=== PATIENT | female | born 1950 | race Caucasian/White ===

== ENCOUNTER 2017-03-17 07:05 | Inpatient (IN) | payer MEDICARE, OTHER ==
[2017-03-17] MEDS ORDERED: Ondansetron HCl/PF 4 MG/2 ML Vial ONE (07:18)
[2017-03-17 07:38] LABS: #Lymphocytes 0.7 thou/uL (1.20-3.40); #Monocytes 0.5 thou/uL (0.11-0.59); %Basophils 0.2 % (0.0-1.0); %Eosinophils 0.1 % (0.0-10.0); %Lymphocytes 5.1 % (21.0-51.0); %Monocytes 3.5 % (0.0-10.0); %Neutrophils 91.1 % (42.0-75.0); Hemoglobin 13.3 g/dL (12.0-16.0); Mean Corpuscular HGB CONC 34.9 g/dL (32.0-36.0); Mean Corpuscular Hemoglobin 33.7 pg (27.0-31.0); Mean Corpuscular Volume 96.5 fl (81.0-99.0); Mean Platelet Volume 7.7 fL (7.4-10.4); Platelet Count 242 thou/uL (130-400); RBC Distribution Width 11.6 % (11.5-14.5); Red Blood Cell (RBC) Count 3.94 mill/uL (4.20-5.40); White Blood Cell (WBC) Count 14.3 thou/uL (4.8-10.8)
[2017-03-17 07:53] LABS: ALT (SGPT) 9 U/L (8-55); AST (SGOT) 15 U/L (5-34); Albumin 4.1 g/dL (3.4-4.8); Alkaline Phosphatase 41 U/L (40-150); Anion Gap 14 mmol/L (10-20); BUN (Urea Nitrogen) 33 mg/dL (9.8-20.1); Bilirubin, Total 0.7 mg/dL (0.2-1.2); CK (CPK) 29 U/L (29-168); Calc. Creatinine Clearance 0 mL/min (70-130); Calcium 9.8 mg/dL (7.8-10.44); Carbon Dioxide 24 mmol/L (23-31); Chloride 107 mmol/L (98-107); Estimated GFR-MDRD 49; Globulin 3.3 g/dL (2.4-3.5); Glucose 242 mg/dL (80-115); Lipase 8 U/L (8-78); Potassium 3.8 mmol/L (3.5-5.1); Protein, Total 7.4 g/dL (6.0-8.3); Sodium 141 mmol/L (136-145)
[2017-03-17 07:57] LABS: CKMB 1.4 ng/mL (0-6.6)
--- NOTE | 2017-03-17 07:57 | RAD ---
RADIOGRAPH CHEST 1 VIEW: Date: 03/17/17. Time: 7:01 a.m. HISTORY: A 66-year-old female with dyspnea. COMPARISON: 10/09/16. FINDINGS: New finding of mild to moderate airspace densities in the right mid and lower lung zones, including t he right upper lobe. Lungs are hypoinflated. No pulmonary edema or pneumothorax. IMPRESSION: Right-sided alveolar infiltrates is evidence for right-sided pneumonia. JN [] POS: OFF
[2017-03-17 08:03] LABS: Bilirubin Small (Negative); Blood, Urine Negative (Negative); Clarity CLOUDY (Clear); Glucose, Urine (Dipstick) 250 mg/dL (Negative); Leukocyte Moderate (Negative); Nitrite Positive (Negative); Protein, Urine (Dipstick) 30 mg/dL (Neg-Trace); Specific Gravity, Urine 1.027 (1.002-1.036); Urobilinogen 0.2 mg/dL (0.2-1.0)
[2017-03-17 08:06] LABS: Bacteria/HPF 4+ HPF (None Seen); Hyaline Casts/LPF 0-3 HYALINE CAST LPF (0-3 Hyaline); Pathc Cast-AUWi Flag 0.13 (0-2.49); RBC/HPF 0-3 HPF (0-3); Squamous Epithelial None Seen HPF (0-3)
[2017-03-17] MEDS ORDERED: Piperacillin/Tazobactam 4.5 GM in Sodium Chloride 0.9% 100 ML IVPB SCH (08:15)
[2017-03-17 10:48] LABS: Troponin I 0.125 ng/mL (< 0.028)
[2017-03-17 13:58] LABS: Troponin I 0.122 ng/mL (< 0.028)
--- NOTE | 2017-03-17 14:32 | HP ---
CHIEF COMPLAINT: Pneumonia. HISTORY OF PRESENT ILLNESS: The patient is a 66[facility], who was noted to be more lethargic with hypoxia, her pO2s were getting into the 80s such that she was sent to the emergency room for further evaluation. In the emergency room, her pO2s were indeed confirmed to be in the 80s. She has some nausea and has had vomiting as well. Vital signs on arrival; pulse 62 , blood pressure 168/92, temperature 98.4, pO2 was 94% on room air at that time. Evaluation showed r ales in the right lobe and chest x-ray obtained in the emergency room did confirm that there was righ t middle lobe infiltrates noted. The patient will be admitted for pneumonia. PAST MEDICAL HISTORY: Significant for dementia, diabetes type 2, hyperlipidemia, hypertension, 2 patel or strokes and about 10 small ones, weakness to the left arm, atrial fibrillation, pancreatitis, recu rrent UTIs. PAST SURGICAL HISTORY: Includes cholecystectomy. She has had stents placed in 2013. Psychiatricall y, she suffers from anxiety and depression and now has dementia. SOCIAL HISTORY: She has never smoked or drank or used alcohol or use illicit drugs. FAMILY HISTORY: Noncontributory. ALLERGIES: LISINOPRIL, NAPROXEN. MEDICATIONS ON ADMISSION: Include Levemir 37 units daily, metformin 500 mg b.i.d. She also takes ox ybutynin 15 mg per bladder spasms, gabapentin 100 mg at bedtime for neuropathy, fenofibrate 145 mg da tonie, Xarelto 20 mg daily, sotalol 120 mg b.i.d., metoprolol 25 mg b.i.d., atorvastatin 40 mg at bedti me, Prozac 20 mg every day, hydralazine 50 mg t.i.d., donepezil 23 mg daily, multiple vitamin daily, and Aggrenox 25/200 b.i.d. REVIEW OF SYSTEMS: At the time of admission is not obtainable due to the patient having dementia. PHYSICAL EXAMINATION: VITAL SIGNS: On admission, blood pressure 168/92, pulse 62, respirations 14, temperature 98.4, O2 sa t 94%. GENERAL: This is a well-developed and well-nourished female, in no acute distress, alert a nd cooperative. HEENT: Normocephalic and atraumatic. Pupils are equal, round, and reactive to light with extraocula r muscles intact. Arcus senilis bilaterally. TMs clear. Nares clear. Pharynx without erythema or lesion. NECK: Supple. CHEST: With rales on the right. Left is clear. BREAST: Deferred. HEART: Regular rate and rhythm. ABDOMEN: Soft and nontender without organomegaly. GENITOURINARY: Deferred. EXTREMITIES: Without clubbing, cyanosis, or edema. SKIN: Without acute rashes or lesions. NEUROLOGIC: Cranial nerves are intact. Unable to test gait and cerebellar function. Sensory exam i s grossly intact. LABORATORY AND X-RAY FINDINGS: Lab work thus far on admission: Chest x-ray reveals right-sided infi ltrate in the mid lower lobe and right middle lobe distribution. WBC is 14.3, hemoglobin 13.3, hemat ocrit 38.1 with platelets at 242. Sodium 141, potassium 3.8, chloride 107, CO2 of 24, BUN 33, creati nine 1.11, glucose 242. Lactic acid 1.4. Liver enzymes unremarkable. UA shows 30 protein, 250 gluc ose, negative ketones, nitrites positive, leukocyte esterase positive, and too numerous to count whit e cells. ASSESSMENT: Right middle lobe and right lower lobe pneumonia, urinary tract infection, non-insulin d ependent diabetes, vascular dementia with history of multiple cerebrovascular accidents. PLAN: IV antibiotics, nebulizer treatments. Cultures have already been obtained and serial reevalua tion.
[2017-03-17 14:39] VITALS: BMI 29.8
[2017-03-17] MEDS ORDERED: Ondansetron ODT 4 MG TAB SL PRN (14:40)
[2017-03-17] MEDS ORDERED: Ondansetron HCl/PF 4 MG/2 ML Vial IVP PRN (14:40)
[2017-03-17] MEDS ORDERED: Acetaminophen 325 MG TAB PO PRN ×2 (14:40→19:36)
[2017-03-17] MEDS ORDERED: Prevnar 13-Val Conj/PF 0.5 ML SYRINGE IM ONE (17:45)
[2017-03-17] MEDS ORDERED: FLU VACC TS2017-18 (>65YR) 0.5 ML SYRINGE IM ONE (17:45)
[2017-03-17] MEDS ORDERED: Ondansetron HCl/PF 4 MG/2 ML Vial SLOW IVP PRN (19:36)
[2017-03-17] MEDS ORDERED: Benzonatate 100 MG CAP PO PRN (19:37)
[2017-03-17] MEDS: Metoprolol Tartrate 25 MG TAB PO SCH (20:12)
[2017-03-17] MEDS: Gabapentin 100 MG CAP PO SCH (20:12)
[2017-03-17] MEDS: Atorvastatin Calcium 40 MG TAB PO SCH (20:13)
[2017-03-17] MEDS: hydrALAZINE 25 MG TAB PO SCH (20:13)
[2017-03-17] MEDS: guaiFENesin ER 600 MG TAB PO SCH (20:13)
[2017-03-17] MEDS: Sotalol HCl 80 MG TAB PO SCH (20:26)
[2017-03-17] MEDS: Piperacillin/Tazobactam 4.5 GM in Sodium Chloride 0.9% 100 ML IVPB SCH (21:26)
[2017-03-18] MEDS: Piperacillin/Tazobactam 4.5 GM in Sodium Chloride 0.9% 100 ML IVPB SCH ×3 (03:45→20:21)
[2017-03-18 05:02] LABS: #Eosinphils 0.2 thou/uL (0.0-0.7); #Lymphocytes 1.3 thou/uL (1.20-3.40); #Monocytes 0.7 thou/uL (0.11-0.59); %Basophils 0.3 % (0.0-1.0); %Lymphocytes 13.8 % (21.0-51.0); %Monocytes 7.1 % (0.0-10.0); %Neutrophils 76.7 % (42.0-75.0); Hemoglobin 11.7 g/dL (12.0-16.0); Mean Corpuscular HGB CONC 33.3 g/dL (32.0-36.0); Mean Corpuscular Hemoglobin 32.8 pg (27.0-31.0); Mean Corpuscular Volume 98.5 fl (81.0-99.0); Platelet Count 205 thou/uL (130-400); RBC Distribution Width 11.8 % (11.5-14.5); Red Blood Cell (RBC) Count 3.56 mill/uL (4.20-5.40); White Blood Cell (WBC) Count 9.1 thou/uL (4.8-10.8)
[2017-03-18 05:23] LABS: Anion Gap 13 mmol/L (10-20); BUN (Urea Nitrogen) 34 mg/dL (9.8-20.1); Calc. Creatinine Clearance 74 mL/min (70-130); Calcium 9.5 mg/dL (7.8-10.44); Carbon Dioxide 26 mmol/L (23-31); Chloride 107 mmol/L (98-107); Estimated GFR-MDRD 56; Glucose 172 mg/dL (80-115); Potassium 3.7 mmol/L (3.5-5.1); Sodium 142 mmol/L (136-145)
[2017-03-18] MEDS: Vancomycin HCl 1.25 GM in Sodium Chloride 0.9% 250 ML 250 ML IVPB SCH (05:34)
[2017-03-18] MEDS ORDERED: metFORMIN 500 MG TAB PO SCH (08:00)
[2017-03-18] MEDS: Rivaroxaban 10 MG TAB PO SCH (08:22)
[2017-03-18] MEDS: guaiFENesin ER 600 MG TAB PO SCH ×2 (08:22→20:22)
[2017-03-18] MEDS: Metoprolol Tartrate 25 MG TAB PO SCH ×2 (08:23→20:21)
[2017-03-18] MEDS: Multivitamin W/ Minerals 1 TAB PO SCH (08:23)
[2017-03-18] MEDS: Aspirin 81 mg Enteric Coated Tablet PO SCH (08:23)
[2017-03-18] MEDS: hydrALAZINE 25 MG TAB PO SCH ×3 (08:23→20:21)
[2017-03-18] MEDS: FLUoxetine HCl 20 MG CAP PO SCH (08:24)
[2017-03-18] MEDS: Sotalol HCl 80 MG TAB PO SCH ×2 (08:47→20:22)
[2017-03-18] MEDS ORDERED: DONEPEZIL 23 MG PO SCH (09:00)
[2017-03-18] MEDS: metFORMIN 500 MG TAB PO SCH (16:29)
[2017-03-18] MEDS: Atorvastatin Calcium 40 MG TAB PO SCH (20:21)
[2017-03-18] MEDS: Gabapentin 100 MG CAP PO SCH (20:22)
[2017-03-19] MEDS: Piperacillin/Tazobactam 4.5 GM in Sodium Chloride 0.9% 100 ML IVPB SCH ×3 (03:32→20:30)
[2017-03-19 05:30] LABS: #Eosinphils 0.1 thou/uL (0.0-0.7); #Lymphocytes 1.4 thou/uL (1.20-3.40); #Monocytes 0.6 thou/uL (0.11-0.59); %Basophils 0.5 % (0.0-1.0); %Eosinophils 1.6 % (0.0-10.0); %Lymphocytes 19.3 % (21.0-51.0); %Monocytes 8.1 % (0.0-10.0); %Neutrophils 70.4 % (42.0-75.0); Hemoglobin 11.3 g/dL (12.0-16.0); Mean Corpuscular Hemoglobin 32.4 pg (27.0-31.0); Mean Corpuscular Volume 98.1 fl (81.0-99.0); Mean Platelet Volume 7.3 fL (7.4-10.4); Platelet Count 180 thou/uL (130-400); RBC Distribution Width 11.6 % (11.5-14.5)
[2017-03-19 05:43] LABS: Vancomycin, Trough 6.5 ug/mL
[2017-03-19 05:45] LABS: Anion Gap 11 mmol/L (10-20); BUN (Urea Nitrogen) 27 mg/dL (9.8-20.1); Calc. Creatinine Clearance 77 mL/min (70-130); Calcium 9.2 mg/dL (7.8-10.44); Carbon Dioxide 27 mmol/L (23-31); Chloride 110 mmol/L (98-107); Estimated GFR-MDRD 58; Glucose 138 mg/dL (80-115); Potassium 3.8 mmol/L (3.5-5.1); Sodium 144 mmol/L (136-145)
[2017-03-19] MEDS: Vancomycin HCl 1.25 GM in Sodium Chloride 0.9% 250 ML 250 ML IVPB SCH (05:51)
[2017-03-19] MEDS: Rivaroxaban 10 MG TAB PO SCH (08:12)
[2017-03-19] MEDS: guaiFENesin ER 600 MG TAB PO SCH ×2 (08:12→20:30)
[2017-03-19] MEDS: Aspirin 81 mg Enteric Coated Tablet PO SCH (08:12)
[2017-03-19] MEDS: Metoprolol Tartrate 25 MG TAB PO SCH ×2 (08:12→20:31)
[2017-03-19] MEDS: Sotalol HCl 80 MG TAB PO SCH ×2 (08:13→20:38)
[2017-03-19] MEDS: hydrALAZINE 25 MG TAB PO SCH ×3 (08:13→20:31)
[2017-03-19] MEDS: metFORMIN 500 MG TAB PO SCH ×2 (08:13→17:02)
[2017-03-19] MEDS: Multivitamin W/ Minerals 1 TAB PO SCH (08:13)
[2017-03-19] MEDS: FLUoxetine HCl 20 MG CAP PO SCH (08:13)
--- NOTE | 2017-03-19 15:31 | RAD ---
PORTABLE CHEST 1 VIEW: Date: 03/19/17 HISTORY: 66-year-old female with history of follow-up pneumonia. FINDINGS: There are patchy interstitial and alveolar opacities in the perihilar regions, somewhat more dense in the right perihilar region. This does appear to be somewhat improved from the prior study. IMPRESSION: Evidence for persistent bilateral interstitial and alveolar opacities with some improvement in the ri ght mid and upper lung zone from prior study. No significant new process. POS: JONNIE
[2017-03-19] MEDS: Vancomycin HCl 1 GM in Premix Bag 1 BAG IVPB SCH (17:02)
[2017-03-19] MEDS: Atorvastatin Calcium 40 MG TAB PO SCH (20:31)
[2017-03-19] MEDS: Gabapentin 100 MG CAP PO SCH (20:31)
[2017-03-20] MEDS: Piperacillin/Tazobactam 4.5 GM in Sodium Chloride 0.9% 100 ML IVPB SCH ×2 (03:46→14:23)
[2017-03-20] MEDS: Vancomycin HCl 1 GM in Premix Bag 1 BAG IVPB SCH (05:00)
[2017-03-20 05:04] LABS: #Basophils 0.1 thou/uL (0.0-0.2); #Eosinphils 0.2 thou/uL (0.0-0.7); #Lymphocytes 1.6 thou/uL (1.20-3.40); #Monocytes 0.5 thou/uL (0.11-0.59); #Neutrophils 5.1 thou/uL (1.40-6.50); %Basophils 0.9 % (0.0-1.0); %Eosinophils 2.6 % (0.0-10.0); %Monocytes 6.6 % (0.0-10.0); %Neutrophils 68.9 % (42.0-75.0); Hemoglobin 11.8 g/dL (12.0-16.0); Mean Corpuscular HGB CONC 33.2 g/dL (32.0-36.0); Mean Corpuscular Hemoglobin 32.4 pg (27.0-31.0); Mean Corpuscular Volume 97.7 fl (81.0-99.0); Mean Platelet Volume 7.6 fL (7.4-10.4); Platelet Count 206 thou/uL (130-400); RBC Distribution Width 11.5 % (11.5-14.5); Red Blood Cell (RBC) Count 3.62 mill/uL (4.20-5.40); White Blood Cell (WBC) Count 7.4 thou/uL (4.8-10.8)
[2017-03-20 05:11] LABS: INR-International Normal Ratio 1.1; Prothrombin Time 14.7 SEC (12.0-14.7)
[2017-03-20 05:14] LABS: Anion Gap 13 mmol/L (10-20); BUN (Urea Nitrogen) 21 mg/dL (9.8-20.1); Calc. Creatinine Clearance 95 mL/min (70-130); Calcium 8.9 mg/dL (7.8-10.44); Carbon Dioxide 25 mmol/L (23-31); Chloride 111 mmol/L (98-107); Estimated GFR-MDRD 74; Glucose 100 mg/dL (80-115); Potassium 3.6 mmol/L (3.5-5.1); Sodium 145 mmol/L (136-145)
[2017-03-20] MEDS ORDERED: Heparin 10,000 UNITS/ 10 ML VIAL ONE (07:50)
[2017-03-20 08:06] VITALS: TEMP 98.2
[2017-03-20] MEDS: FLUoxetine HCl 20 MG CAP PO SCH (08:30)
[2017-03-20] MEDS: hydrALAZINE 25 MG TAB PO SCH ×2 (08:30→14:24)
[2017-03-20] MEDS: guaiFENesin ER 600 MG TAB PO SCH (08:30)
[2017-03-20] MEDS: metFORMIN 500 MG TAB PO SCH (08:30)
[2017-03-20] MEDS: Multivitamin W/ Minerals 1 TAB PO SCH (08:30)
[2017-03-20] MEDS: Metoprolol Tartrate 25 MG TAB PO SCH (08:31)
[2017-03-20] MEDS: Aspirin 81 mg Enteric Coated Tablet PO SCH (08:31)
[2017-03-20] MEDS: Rivaroxaban 10 MG TAB PO SCH ×2 (08:32→11:27)
[2017-03-20] MEDS ORDERED: Amlodipine 5 MG TAB PO SCH (09:00)
--- NOTE | 2017-03-20 09:43 | SPC ---
SONOGRAPHIC GUIDED LEFT UPPER EXTREMITY PICC PLACEMENT: HISTORY: Urinary tract infection. Pneumonia. FINDINGS: After explaining the procedure and answering all questions, the left upper extremity was prepped and draped in the usual sterile fashion. Sterile technique, buffered local anesthesia, sonographic shadi nce, and a 22 gauge needle were used to carefully access the left cephalic vein. Standard technique was then used to place the tip of a 5 Irish single lumen PICC so that the tip lies at the level of t he right atrium. The catheter was flushed and secured externally. The patient tolerated the procedu re well and was returned in unchanged condition. FLUORO TIME: 0.1 minutes. IMPRESSION: Technically successful left upper extremity PICC placement. Catheter is now ready for use. POS: JONNIE
[2017-03-20] MEDS: Sotalol HCl 80 MG TAB PO SCH (11:27)
[2017-03-20 14:35] VITALS: BP 150/84
== END 2017-03-20 16:15 | DRG 194 ==
LOC: ERS 07:05 → ERHOLD 08:13 → 2NO 13:52 → T4-B 21:59
PROVIDERS: ADMIT Specialist; ATTEND Specialist
PROC: 02HV33Z Insertion of Infusion Device into Superior Vena Cava, Percutaneous Approach (ICD-10-PCS; principal; 2017-03-20)
DX: J18.9 Pneumonia, unspecified organism (principal); N39.0 Urinary tract infection, site not specified; F01.50 Vascular dementia, unspecified severity, without behavioral disturbance, psychotic disturbance, mood disturbance, and anxiety; I69.398 Other sequelae of cerebral infarction; E11.9 Type 2 diabetes mellitus without complications; E78.5 Hyperlipidemia, unspecified; K21.9 Gastro-esophageal reflux disease without esophagitis; Z88.8 Allergy status to other drugs, medicaments and biological substances; Z87.440 Personal history of urinary (tract) infections; Z95.1 Presence of aortocoronary bypass graft
CPT/HCPCS: 36415; 36416; 36569; 51701; 71045; 80048; 80053; 80202; 81003; 81015; 82550; 82553; 83605; 83690; 83880; 84484; 85025; 85610; 87040; 87077; 87086; 87186; 93005; 94640; 96365; 96367; 96375; A4353; C1751; J1644; J1956; J2405; J2543; J3370; J7050; J7620

== ENCOUNTER 2017-04-02 12:10 | Inpatient (IN) | payer MEDICARE, OTHER ==
[2017-04-02 13:34] LABS: #Eosinphils 0.1 thou/uL (0.0-0.7); #Lymphocytes 0.6 thou/uL (1.20-3.40); #Monocytes 0.3 thou/uL (0.11-0.59); #Neutrophils 6.9 thou/uL (1.40-6.50); %Basophils 0.2 % (0.0-1.0); %Eosinophils 0.8 % (0.0-10.0); %Lymphocytes 7.4 % (21.0-51.0); %Monocytes 3.6 % (0.0-10.0); %Neutrophils 87.9 % (42.0-75.0); Hemoglobin 13.2 g/dL (12.0-16.0); Mean Corpuscular HGB CONC 34.5 g/dL (32.0-36.0); Mean Corpuscular Hemoglobin 32.8 pg (27.0-31.0); Mean Corpuscular Volume 95.2 fl (81.0-99.0); Mean Platelet Volume 7.1 fL (7.4-10.4); Platelet Count 217 thou/uL (130-400); RBC Distribution Width 11.4 % (11.5-14.5); Red Blood Cell (RBC) Count 4.02 mill/uL (4.20-5.40); White Blood Cell (WBC) Count 7.8 thou/uL (4.8-10.8)
[2017-04-02 13:43] LABS: INR-International Normal Ratio 1.5; Prothrombin Time 18.6 SEC (12.0-14.7)
[2017-04-02 13:55] LABS: ALT (SGPT) 9 U/L (8-55); AST (SGOT) 16 U/L (5-34); Albumin 3.8 g/dL (3.4-4.8); Alkaline Phosphatase 32 U/L (40-150); Anion Gap 18 mmol/L (10-20); BUN (Urea Nitrogen) 68 mg/dL (9.8-20.1); Bilirubin, Total 0.5 mg/dL (0.2-1.2); Calc. Creatinine Clearance 0 mL/min (70-130); Calcium 9.1 mg/dL (7.8-10.44); Carbon Dioxide 21 mmol/L (23-31); Chloride 108 mmol/L (98-107); Estimated GFR-MDRD 9; Globulin 3.3 g/dL (2.4-3.5); Glucose 110 mg/dL (80-115); Magnesium 1.4 mg/dL (1.6-2.6); Potassium 4.2 mmol/L (3.5-5.1); Protein, Total 7.1 g/dL (6.0-8.3); Sodium 143 mmol/L (136-145)
[2017-04-02] MEDS ORDERED: Magnesium Sulfate 2 GM/100 ML BAG ONE (14:01)
--- NOTE | 2017-04-02 15:13 | RAD ---
CHEST 1 VIEW: Date: 04/02/17 HISTORY: Emergency exam. COMPARISON: Chest 1 view dated 03/19/17. FINDINGS: The right middle and left lower lobe air space opacities have improved. No pneumothorax. No new focal air space consolidation. IMPRESSION: Improving air space opacities. POS: [facility]
--- NOTE | 2017-04-02 22:14 | HP ---
DATE OF ADMISSION: 04/02/2017 CHIEF COMPLAINT: Acute kidney injury, dehydration, and gastroenteritis. HISTORY OF PRESENT ILLNESS: The patient is a 66-year-old alf patient that for 2 days has be en experiencing profuse diarrhea then progressed to nausea and vomiting. When she became extremely w eak and unable to stand, the alf nurses contacted Dr. Grewal, he requested the patient be sen t to the ER for further evaluation. In the emergency room, her BUN function was noted to be 68, crea tinine noted to be 4.98 as she was very weak, dehydrated, needing fluid resuscitation and serial impr ovement in her kidney function. At this point, IV fluids were begun. She was noted to have prolonge d QT interval, so antiemetics were withheld. Her magnesium level was low and this was treated in the ER. She denies fever. PAST MEDICAL HISTORY: Significant for recent hospitalization on 03/17/2017 for pneumonia and UTI. T he past medical history is also significant for vascular dementia, type 2 diabetes, hyperlipidemia, a nd hypertension. She has had 2 major strokes and 10 small ones, she still remains weak in the left a rm. She has atrial fibrillation, bouts of pancreatitis and recurrent UTIs. PAST SURGICAL HISTORY: Includes cholecystectomy, stents placed in 2013, she has had dementia for dwight te some time. PSYCHIATRIC HISTORY: Significant for anxiety and depression as well. SOCIAL HISTORY: She has never smoked or drank alcohol or used illicit drugs. FAMILY HISTORY: Noncontributory. ALLERGIES: She is allergic to JEFFRY INHIBITORS and NAPROXEN. MEDICATIONS ON ADMISSION: Include Levemir 37 units daily, metformin 500 mg twice a day, this is su g to be held at this time due to her need to return of renal function, oxybutynin 15 mg for bladder s pasms, gabapentin 100 mg at bedtime for neuropathy, fenofibrate 145 daily, Xarelto 20 mg daily, sotal ol 120 mg daily, metoprolol 25 mg daily, atorvastatin 40 mg at bedtime, Prozac 20 mg q. day, hydralaz ine 50 mg t.i.d., donepezil 23 mg daily, and multiple vitamin daily and Aggrenox 25/200 b.i.d. REVIEW OF SYSTEMS: At the time of admission, she is alert and responsive. Denies any acute distress . Constitutional: Denies fever, but has been generally weak with nausea and vomiting. HEENT: Raudel es blurred vision, trouble with pain in the ears or pharynx. Pharynx is somewhat dry. Neck: Denies pain and limited range of motion. Chest: Has no coughing, wheezing. She was recovering from pneum onia as mildly dyspneic. Cardiovascular: Denies chest pain, palpitations, and diaphoresis. Abdomen : Generally tender, but no acute points of tenderness. She has persistent nausea, vomiting, and mena rrhea as reason for admission. Genitourinary: Denies any painful urination or blood in urine or sto ol. Musculoskeletal: Generally weak, but denies any acute painful joints, swelling, or erythema. S kin: No acute rashes or lesions. Poor turgor is noted. Neurologic: Cranial nerves are intact. Julia romo maintains a slowed mentation with poverty of verbiage, but this is her baseline. PHYSICAL EXAMINATION VITAL SIGNS: At the time of admission, blood pressure 148/76, pulse 60, respirations 13, temperature 98.0, pain scale of 0, and O2 sat of 96% on room air. GENERAL: This is an elderly, alert, responsive, female in no acute distress. HEENT: Normocephalic and atraumatic. Pupils equal, round, and reactive to light with diminished darrius ctivity at 2-3 mm of piece. Arcus senilis bilaterally. TMs and nares are clear. Pharynx is dry. NECK: Supple, midline, no mass. LUNGS: Chest with good breath sounds bilaterally, unable to appreciate rales or rhonchi. HEART: Regular rate and rhythm. BREASTS: Deferred. ABDOMEN: Mildly tender, but no appreciable organomegaly or point tenderness. : Deferred. EXTREMITIES: Without clubbing, cyanosis, or edema. There is weakness noted on the left. SKIN: Poor turgor. No acute rashes or lesions. LABORATORY DATA: Lab works thus far shows WBC 7.8, hemoglobin 13.2, hematocrit 38.2 with platelets o f 217. INR is 1.5, PT is 18.6. Sodium 143, potassium 4.2, chloride 108, CO2 is 21, BUN 68, creatini ne 4.98, glucose 110, calcium 9.1, magnesium 1.4, total bilirubin 0.5, AST 16, ALT 9, alkaline phosph atase 32. UA is pending. Chest x-ray shows resolving infiltrates, no acute findings. ASSESSMENT: 1. Acute kidney injury. 2. Dehydration. 3. Hypomagnesemia, in correction. 4. Prolonged QT interval. 5. History of vascular dementia. 6. Insulin-dependent diabetes. PLAN: Plan will be IV fluids with serial monitoring of return of renal function and possible renal c onsult should return of function fail, antiemetics are being held due to the chance of worsening her QT prolongation and due to this, she will be asked to be kept in a monitored bed until this was corre cted.
[2017-04-02] MEDS ORDERED: Sodium Chloride 0.9% 1,000 ML IV SCH (22:27)
[2017-04-02] MEDS ORDERED: Acetaminophen 325 MG TAB PO PRN (22:27)
[2017-04-02] MEDS ORDERED: Insulin Regular 300 UNITS/3 ML VIAL SC PRN (22:32)
[2017-04-02] MEDS ORDERED: Dextrose 5% in Water 1,000 ML IV PRN (22:32)
[2017-04-02] MEDS ORDERED: Dextrose 50% Abboject 50 ML SYRINGE IVP PRN (22:32)
[2017-04-02] MEDS ORDERED: Acetaminophen 500 MG TAB PO PRN (22:34)
[2017-04-03] MEDS: Sodium Chloride 0.9% 1,000 ML IV SCH ×3 (00:10→17:36)
[2017-04-03 05:53] LABS: #Basophils 0.1 thou/uL (0.0-0.2); #Eosinphils 0.2 thou/uL (0.0-0.7); #Lymphocytes 0.9 thou/uL (1.20-3.40); #Monocytes 0.5 thou/uL (0.11-0.59); #Neutrophils 5.6 thou/uL (1.40-6.50); %Basophils 0.9 % (0.0-1.0); %Lymphocytes 12.5 % (21.0-51.0); %Monocytes 6.4 % (0.0-10.0); %Neutrophils 77.1 % (42.0-75.0); Hemoglobin 11.3 g/dL (12.0-16.0); Mean Corpuscular HGB CONC 33.9 g/dL (32.0-36.0); Mean Corpuscular Hemoglobin 32.5 pg (27.0-31.0); Mean Corpuscular Volume 95.9 fl (81.0-99.0); Mean Platelet Volume 7.6 fL (7.4-10.4); Platelet Count 193 thou/uL (130-400); RBC Distribution Width 11.4 % (11.5-14.5); Red Blood Cell (RBC) Count 3.48 mill/uL (4.20-5.40); White Blood Cell (WBC) Count 7.2 thou/uL (4.8-10.8)
[2017-04-03 06:07] LABS: Anion Gap 18 mmol/L (10-20); BUN (Urea Nitrogen) 71 mg/dL (9.8-20.1); Calc. Creatinine Clearance 17 mL/min (70-130); Calcium 8.6 mg/dL (7.8-10.44); Carbon Dioxide 19 mmol/L (23-31); Chloride 111 mmol/L (98-107); Estimated GFR-MDRD 10; Glucose 85 mg/dL (80-115); Magnesium 1.7 mg/dL (1.6-2.6); Sodium 144 mmol/L (136-145)
[2017-04-03] MEDS ORDERED: Rivaroxaban 10 MG TAB PO SCH (09:00)
[2017-04-03] MEDS ORDERED: Insulin Detemir 100 UNITS/ML 37 UNITS in Pre-Filled Syringe 1 EACH SC SCH (09:00)
[2017-04-03] MEDS: Aggrenox 200-25mg CAP PO SCH ×2 (09:03→21:09)
[2017-04-03] MEDS: Insulin Detemir 100 UNITS/ML 25 UNITS in Pre-Filled Syringe 1 EACH SC SCH (09:03)
[2017-04-03] MEDS: Sotalol HCl 80 MG TAB PO SCH ×2 (09:03→21:09)
[2017-04-03] MEDS: FLUoxetine HCl 20 MG CAP PO SCH (09:04)
[2017-04-03] MEDS: hydrALAZINE 25 MG TAB PO SCH ×3 (09:04→21:10)
[2017-04-03 13:17] LABS: Bilirubin Small (Negative); Blood, Urine Negative (Negative); Clarity CLOUDY (Clear); Glucose, Urine (Dipstick) Negative (Negative); Leukocyte Negative (Negative); Nitrite Negative (Negative); Protein, Urine (Dipstick) Negative (Neg-Trace); Urobilinogen 0.2 mg/dL (0.2-1.0); pH, Urine 5.5 (5.0-9.0)
[2017-04-03] MEDS ORDERED: DONEPEZIL 23 MG PO SCH (21:00)
[2017-04-03] MEDS: Dextrose 5 %-0.45 % NaCl 1,000 ML IV SCH (21:09)
[2017-04-03] MEDS: Gabapentin 100 MG CAP PO SCH (21:09)
[2017-04-04] MEDS: Dextrose 5 %-0.45 % NaCl 1,000 ML IV SCH ×4 (04:09→23:43)
[2017-04-04 05:47] LABS: #Eosinphils 0.4 thou/uL (0.0-0.7); #Lymphocytes 0.8 thou/uL (1.20-3.40); #Monocytes 0.5 thou/uL (0.11-0.59); #Neutrophils 4.9 thou/uL (1.40-6.50); %Basophils 0.6 % (0.0-1.0); %Eosinophils 5.8 % (0.0-10.0); %Lymphocytes 12.2 % (21.0-51.0); %Monocytes 7.4 % (0.0-10.0); %Neutrophils 74.1 % (42.0-75.0); Hemoglobin 10.6 g/dL (12.0-16.0); Mean Corpuscular HGB CONC 33.4 g/dL (32.0-36.0); Mean Corpuscular Hemoglobin 31.9 pg (27.0-31.0); Mean Corpuscular Volume 95.6 fl (81.0-99.0); Mean Platelet Volume 7.6 fL (7.4-10.4); Platelet Count 157 thou/uL (130-400); RBC Distribution Width 11.5 % (11.5-14.5); Red Blood Cell (RBC) Count 3.32 mill/uL (4.20-5.40); White Blood Cell (WBC) Count 6.6 thou/uL (4.8-10.8)
[2017-04-04 06:05] LABS: Anion Gap 11 mmol/L (10-20); BUN (Urea Nitrogen) 65 mg/dL (9.8-20.1); Calc. Creatinine Clearance 18 mL/min (70-130); Calcium 8.4 mg/dL (7.8-10.44); Carbon Dioxide 21 mmol/L (23-31); Chloride 112 mmol/L (98-107); Estimated GFR-MDRD 11; Glucose 128 mg/dL (80-115); Potassium 3.3 mmol/L (3.5-5.1); Sodium 141 mmol/L (136-145)
[2017-04-04] MEDS: Aggrenox 200-25mg CAP PO SCH ×2 (08:26→21:09)
[2017-04-04] MEDS: FLUoxetine HCl 20 MG CAP PO SCH (08:28)
[2017-04-04] MEDS: hydrALAZINE 25 MG TAB PO SCH ×3 (08:30→21:10)
--- NOTE | 2017-04-04 08:40 | PRG ---
DATE OF SERVICE: 04/04/2017 SUBJECTIVE: The patient is awake. She has no family here at bedside. She denies any complaints. S he had an eventful night. PHYSICAL EXAMINATION: GENERAL: Upon evaluation, she is awake, she is alert. VITAL SIGNS: Her blood pressure is high at 184/80, her pulse is 60. She is afebrile at 97.6. NECK: Supple with no increased JVP or carotid bruit. Carotid had good upstroke with no thyromegaly. COR: Ernesto rhythm. CHEST: With a few wheezing upper lobes and few crackles bilaterally. ABDOMEN: Soft, nontender with normoactive bowel sounds. No bruit or organomegaly. EXTREMITIES: No edema or cyanosis. Palpable pedal pulses. SKIN: There is no evidence of ulcers, lesion, or rash. NEUROLOGIC: She is awake and has slight expressive aphasia. LABORATORY DATA: Potassium 3.3, BUN 65, creatinine 4.18, glucose 128. Her CBC showed a white blood cell to be normal at 6.6. Her H&H is 10.6 and 31.7. ASSESSMENT: 1. Acute renal injury. 2. Dehydration. 3. Gastroenteritis, improved. 4. History of cerebrovascular accident. 5. Diabetes. 6. Hypokalemia. 7. Anemia of chronic disease. PLAN: We will go ahead and consult Nephrology, Dr. Grewal was hoping that the patient's renal functio n would improved, giving IV fluids; however, there has not been improvement, so therefore we will con sult Nephrology also replace her potassium also urine culture is pending. All other orders per Nephr ology.
[2017-04-04] MEDS ORDERED: Rivaroxaban 10 MG TAB PO SCH (09:00)
[2017-04-04] MEDS: Sotalol HCl 80 MG TAB PO SCH ×2 (10:22→21:12)
[2017-04-04] MEDS: Insulin Detemir 100 UNITS/ML 25 UNITS in Pre-Filled Syringe 1 EACH SC SCH (10:23)
[2017-04-04] MEDS ORDERED: Enoxaparin Sodium 80 MG/0.8 ML SYRINGE SC SCH (14:00)
[2017-04-04] MEDS ORDERED: ENOXAPARIN PO PRN (14:11)
[2017-04-04] MEDS ORDERED: Dextrose 5 % And 0.9 % NaCl 1,000 ML IV SCH (14:15)
--- NOTE | 2017-04-04 15:07 | CON ---
DATE OF CONSULTATION: 04/04/2017 HISTORY OF PRESENT ILLNESS: Ms. Sorenson is a 66-year-old white female with known multiple medical pr oblems and admitted for acute kidney mhamti-rctayysa-fkuhzladk to dehydration/gastroenteritis. We jane e now being consulted for further management of acute kidney injury. The patient has been started on empiric volume repletion. She is currently on D5 half normal saline at 125 mL per hour. Creatinine is only minimally improved in the last 24 hours. REVIEW OF SYSTEMS: Decreased appetite, decreased energy level. Positive for diarrhea. No nausea, n o vomiting. Decreased p.o. intake. No headache, no diplopia. Chronic dysarthria. No abdominal joaquina n. No fever or chills. No syncopal episode. No sore throat. No gross hematuria. No dysuria, No urinary frequency. PAST MEDICAL HISTORY: Includes the following: History of vascular dementia, type 2 diabetes mellitu s, hyperlipidemia, hypertension, status post CVA, chronic atrial fibrillation, status post pancreatit is, status post UTI, status post pneumonia. PAST SURGICAL HISTORY: Status post cardiac catheterization, status post coronary stent placement, st atus post cholecystectomy. SOCIAL HISTORY: The patient is currently a custodial patient. Currently no smoking or alcohol in take. No IV drug abuse. Sedentary lifestyle. FAMILY HISTORY: No family history of ESRD. ALLERGIES: JEFFRY INHIBITORS, NAPROSYN. TRAUMA: None. IMMUNIZATIONS: Up-to-date. HOSPITALIZATIONS: Please see past medical history. PHYSICAL EXAMINATION: VITAL SIGNS: Blood pressure is noted at 150/83, heart rate 64, respiratory rate 18, temperature 98.1 , pulse ox 92%. GENERAL: Awake, alert, comfortable, decrease speech. She is mildly dysarthric. SKIN: Adequate turgor. HEENT: Pinkish conjunctivae, anicteric sclerae. NECK: No neck mass, no carotid bruits, no JVD. CHEST: No deformities. LUNGS: Clear breath sounds. No wheezing, no crackles. HEART: Normal sinus rhythm. No murmur, no gallops, no rubs. ABDOMEN: Globular, soft, nontender, no masses. EXTREMITIES: No edema. NEUROLOGIC: The patient has decreased motor on the left extremity. She has some degree of dysarthri a. LABORATORY DATA: Of 04/04/2017: White count 6.6, hemoglobin 10.6, sodium 141, potassium 3.3, chlori de 112, carbon dioxide 21, BUN 65, creatinine 4.18, glucose 128, calcium 8.4. Further review of her serum creatinine shows the followin04/03/2017, 4.52; 03/20/2017, creatine is 0.78. Urinalysis of 04/03/2017; specific gravity is 1020. ASSESSMENT AND PLAN: 1. Acute kidney injury - consider hemodynamically mediated renal dysfunction secondary to diarrhea f rom gastroenteritis. I agree with empiric volume repletion. My plan is to change the D5 half normal to D5 normal saline running at 125 mL per hour. There is no indication for any dialytic interventio n with this patient. I also feel that she is not a dialysis candidate due to history of vascular dem entia. 2. Mild hyperkalemia. We will observe this. Recheck base met in a.m. 3. Diarrhea - empiric therapy. Consider empiric antibiotics if needed. Overall prognosis remains guarded. Repeat urinalysis and urine chemistries have been ordered. If no further improvement, we can consider imaging the kidneys.
--- NOTE | 2017-04-04 16:57 | MRI ---
MRI OF BRAIN WITHOUT CONTRAST 04/04/17 CLINICAL HISTORY: Stroke, weakness. Reference made to 07/19/05. FINDINGS: Partially empty sella is present. There is generalized mild atrophy with compensatory dilatation of t he ventricular system. There is no acute territorial infarction. Moderate chronic microvascular ische ino disease is present. There is scattered nonspecific foci of hemosiderin deposition of the bilatera l cerebral hemispheres. There is also linear susceptibility of the posterior left cerebral hemisphere which is compatible with hemosiderin deposition from a prior remote cortical infarct, which is small in size. There is bilateral mild mastoid fluid, and scattered mucosal thickening of the paranasal si nuses present. Skull base flow voids are patent. There is prominent pontine gliosis as well as mild W allerian degeneration suggested. Several remote lacunar infarctions involving each basal ganglia. IMPRESSION: 1. No acute territorial infarction or mass effect. 2. Extensive chronic ischemic disease and parenchymal atrophy. 3. Nonspecific foci of punctate susceptibility which may be on the basis of amyloid angiopathy o r other vasculopathy. 4. Remote posterior left cerebral hemispheric infarction, with hemosiderin deposition. POS: JONNIE
[2017-04-04 17:59] LABS: Bilirubin Negative (Negative); Blood, Urine Negative (Negative); Clarity CLOUDY (Clear); Glucose, Urine (Dipstick) 100 mg/dL (Negative); Leukocyte Negative (Negative); Nitrite Negative (Negative); Protein, Urine (Dipstick) Negative (Neg-Trace); Specific Gravity, Urine 1.014 (1.002-1.036); Urobilinogen 0.2 mg/dL (0.2-1.0); pH, Urine 5.5 (5.0-9.0)
[2017-04-04 18:05] LABS: Bacteria/HPF None Seen HPF (None Seen); Hyaline Casts/LPF 0-3 HYALINE CAST LPF (0-3 Hyaline); Pathc Cast-AUWi Flag 0.27 (0-2.49); Squamous Epithelial 0-3 HPF (0-3); WBC/HPF 0-3 HPF (0-3)
[2017-04-04 19:04] LABS: Creatinine, Urine 50.38 mg/dL (47-110)
[2017-04-04] MEDS ORDERED: DONEPEZIL 23 MG PO SCH (21:00)
[2017-04-04] MEDS: Gabapentin 100 MG CAP PO SCH (21:10)
[2017-04-04] MEDS: Donepezil HCl 5 MG TAB PO SCH (21:11)
[2017-04-05 06:06] LABS: #Eosinphils 0.4 thou/uL (0.0-0.7); #Lymphocytes 0.9 thou/uL (1.20-3.40); #Monocytes 0.5 thou/uL (0.11-0.59); #Neutrophils 4.3 thou/uL (1.40-6.50); %Basophils 0.6 % (0.0-1.0); %Eosinophils 6.4 % (0.0-10.0); %Lymphocytes 14.2 % (21.0-51.0); %Monocytes 7.7 % (0.0-10.0); %Neutrophils 71.1 % (42.0-75.0); Hemoglobin 10.6 g/dL (12.0-16.0); Mean Corpuscular HGB CONC 33.4 g/dL (32.0-36.0); Mean Corpuscular Hemoglobin 32.3 pg (27.0-31.0); Mean Corpuscular Volume 96.6 fl (81.0-99.0); Platelet Count 165 thou/uL (130-400); RBC Distribution Width 11.5 % (11.5-14.5); White Blood Cell (WBC) Count 6.1 thou/uL (4.8-10.8)
[2017-04-05 06:24] LABS: ALT (SGPT) 7 U/L (8-55); AST (SGOT) 14 U/L (5-34); Alkaline Phosphatase 29 U/L (40-150); Anion Gap 11 mmol/L (10-20); BUN (Urea Nitrogen) 56 mg/dL (9.8-20.1); Bilirubin, Total 0.5 mg/dL (0.2-1.2); Calc. Creatinine Clearance 20 mL/min (70-130); Calcium 8.3 mg/dL (7.8-10.44); Carbon Dioxide 23 mmol/L (23-31); Chloride 112 mmol/L (98-107); Estimated GFR-MDRD 12; Glucose 82 mg/dL (80-115); Potassium 3.6 mmol/L (3.5-5.1); Sodium 142 mmol/L (136-145)
[2017-04-05] MEDS: FLUoxetine HCl 20 MG CAP PO SCH (08:42)
[2017-04-05] MEDS: Dextrose 5 %-0.45 % NaCl 1,000 ML IV SCH ×2 (08:42→15:12)
[2017-04-05] MEDS: hydrALAZINE 25 MG TAB PO SCH ×3 (08:42→20:58)
[2017-04-05] MEDS: Enoxaparin Sodium 80 MG/0.8 ML SYRINGE SC SCH (08:44)
[2017-04-05] MEDS: Aggrenox 200-25mg CAP PO SCH ×2 (08:50→20:59)
[2017-04-05] MEDS: Sotalol HCl 80 MG TAB PO SCH ×2 (09:55→21:00)
[2017-04-05] MEDS: Insulin Detemir 100 UNITS/ML 25 UNITS in Pre-Filled Syringe 1 EACH SC SCH (09:56)
--- NOTE | 2017-04-05 11:07 | HP ---
RENAL MEDICINE HISTORY OF PRESENT ILLNESS: Ms. Sorenson is a 66-year-old white female, long term patient, history of vascular dementia and admitted for acute kidney injury. She was volume depleted and is currently been receiving IV hydration. Renal function is slowly improving. We are following up this patient for acute kidney injury. Creatinine this morning was noted at 3.84 and her creatinine was said to amthew ve peaked to a value of 4.98. Her GFR is currently at 12 mL per minute. She voices no new complaint s. She is feeling better. No chest pain, shortness of breath. PHYSICAL EXAMINATION: VITAL SIGNS: Blood pressure is 156/98, heart rate 55, respiratory rate 16, temperature 98, pulse ox 96%. GENERAL: Noted to be awake, alert, supine, and comfortable. SKIN: Adequate turgor. HEENT: Pinkish conjunctivae, anicteric sclerae. NECK: No neck mass, no carotid bruit, no JVD. The patient is noted to be dysarthric. LUNGS: Clear breath sounds. No wheezing, no crackles. HEART: Normal sinus rhythm. No murmur, no gallops, no rubs. ABDOMEN: Globular, soft, nontender, no masses. EXTREMITIES: No edema, no deformities. MEDICATIONS: Medications of 04/05/2017 was reviewed. LABORATORY DATA: Laboratories of 04/05/2017, sodium 142, potassium 3.6, chloride 112, carbon dioxide 23, BUN 56, creatinine 3.84, GFR 12 mL per minute, AST 14, ALT 7, albumin 3. White count 6.1, hemoglobin 10.6. Urinalysis, no evidence of pigmented granular casts. ASSESSMENT AND PLAN: 1. Acute kidney injury - this is hemodynamically mediated renal dysfunction. Slowly improving with IV hydration. Adjust IV fluid as needed. So far she is tolerating the said IV infusion. There is n o indication for any dialytic intervention. Consider discharge in a.m. if renal function further imp roves. 2. Diarrhea, much improved. We will recheck base met in a.m.
--- NOTE | 2017-04-05 14:35 | PQF ---
CLINICAL DOCUMENTATION IMPROVEMENT CLARIFICATION FORM: ICD-10 Updated PLEASE DO AN ADDENDUM TO THE PROGRESS NOTE WITH ANY DOCUMENTATION UPDATES OR ADDITIONS AND CARRY THROUGH TO DC SUMMARY. THANK YOU. DATE: 04/05/17 ATTN: Dr. Grewal 04/07/17 Please exercise your independent, professional judgment in responding to the clarification form. Clinical indicators are provided on the bottom of this form for your review Please check appropriate box(s): [ ] Infectious gastroenteritis, unspecified. [ ] Noninfectious gastroenteritis, unspecified. [ ] Other diagnosis [ x ] Unable to determine In addition, please specify: Present on Admission (POA): [ x ] Yes [ ] No [ ] Unable to determine For continuity of documentation, please document condition throughout progress notes and discharge summary. Thank You. CLINICAL INDICATORS - SIGNS / SYMPTOMS / LABS PN 04/04/17: GASTROENTERITIS, IMPROVED. RENAL CONSULT: ADMITTED FOR SCOTT-PRERENAL 2/2 DEHYDRATION/ GASTROENTERITIS RISKS: H&P: GROUP HOME PT THAT FOR 2 DAYS EXPERIENCED PROFUSE DIARRHEA THEN PROGRESSED TO NAUSEA & VOMITING. RECENT HOSPITALIZATION ON 03/17/17 FOR PNEUMONIA & UTI. HX: VASCULAR DEMENTIA, DM 2. STROKES. ASSESSMENT: SCOTT, DEHYDRATION TREATMENT: RENAL CONSULT: EMPIRIC VOLUME REPLETION ORDER 04/04: D5 1/2 NS IV 125 MLS/HR Thank you, Cielo (This form is maintained as a part of the permanent medical record) 2015 [employer], [employer]. All Rights Reserved Cielo Rich RN, BSN [email or web address] Office: [phone] [facility]
[2017-04-05] MEDS: Gabapentin 100 MG CAP PO SCH (20:58)
[2017-04-05] MEDS: Donepezil HCl 5 MG TAB PO SCH (20:59)
[2017-04-06] MEDS: Dextrose 5 %-0.45 % NaCl 1,000 ML IV SCH ×2 (01:18→09:18)
[2017-04-06 06:24] LABS: Anion Gap 10 mmol/L (10-20); BUN (Urea Nitrogen) 49 mg/dL (9.8-20.1); Calc. Creatinine Clearance 21 mL/min (70-130); Calcium 8.1 mg/dL (7.8-10.44); Carbon Dioxide 23 mmol/L (23-31); Chloride 111 mmol/L (98-107); Estimated GFR-MDRD 13; Glucose 84 mg/dL (80-115); Potassium 3.6 mmol/L (3.5-5.1); Sodium 140 mmol/L (136-145)
--- NOTE | 2017-04-06 08:55 | PRG ---
DATE OF SERVICE: 04/06/2017 SUBJECTIVE: The patient had a good night. She denies any complaints. She is about to eat a pureed diet. . PHYSICAL EXAMINATION: GENERAL: She is awake. VITAL SIGNS: Her blood pressure is high 180/90, pulse 60, respiration rate 18. She is afebrile. NECK: Supple with no increased JVP or carotid bruit. Carotid had good upstroke, no thyromegaly. COR: Regular rate and rhythm. CHEST: Symmetrical. Clear to auscultation and percussion. ABDOMEN: Soft, nontender with normoactive bowel sounds. There is no bruit or organomegaly. EXTREMITIES: No edema or cyanosis. She had palpable pedal pulses. SKIN: There is no evidence of ulcers, lesion or rash. NEUROLOGIC: She is awake and alert and oriented. She does have left hemiparesis LABORATORY DATA: H&H 10.6 and 31.9, white blood cell was normal. BUN is 49, creatinine 3.58. ASSESSMENT: 1. Nonsustained ventricular tachycardia. 2. History of cerebrovascular accident. 3. Hypertension. 4. Acute kidney injury. PLAN: 1. We will add Norvasc to the patient's medication regime. 2. Apparently they ran out of IV fluids and therefore that is why her creatinine did not go down as much, so Dr. Vogel has already addressed that. We will follow up with the lab in the morning and if kathia lockwood can go back to [facility].
--- NOTE | 2017-04-06 09:10 | PRG ---
DATE OF SERVICE: 04/06/2017 SUBJECTIVE: Ms. Sorenson is a 66-year-old white female who was admitted for an acute kidney injury se condary to volume depletion. The patient has been receiving IV hydration. Unfortunately, last night IV fluid solution ran out. We discussed the case with the nursing staff and we are restarting her o n her D5 half normal saline at 125 mL an hour. No new complaints. The patient denies any chest pain or shortness of breath. OBJECTIVE: VITAL SIGNS: Blood pressure ranging from 150/78-188/92, heart rate 60, respiratory rate 20, temperat ure 98.5, pulse ox 94%. GENERAL: Noted to be awake, supine, comfortable, not in overt distress. She is dysarthric. HEENT: Pinkish conjunctivae, anicteric sclerae. NECK: No neck mass, no carotid bruits, no JVD. CHEST: No deformities. LUNGS: Clear breath sounds. No wheezing, no crackles. HEART: Normal sinus rhythm. No murmur, no gallops or rubs. ABDOMEN: Globular, soft, nontender, no masses. EXTREMITIES: No edema, no deformities. NEUROLOGIC: Awake, dysarthric. Decreased left-sided motor. MEDICATIONS: Of 04/06/2017 was reviewed. LABORATORY DATA: Of 04/06/2007. Sodium 140, potassium 3.6, chloride 111, carbon dioxide 23, BUN 49, creatinine 3.58, glucose 84, and calcium 8.1. ASSESSMENT AND PLAN: Acute kidney injury - hemodynamically mediated renal dysfunction. Slowly impro ving creatinine. Creatinine noted at 3.58 and yesterday this was at 3.84. I did re-discuss with the nursing staff the importance of continued IV hydration with this patient. I feel that she will need another 1-2 days of IV hydration. Please note her p.o. intake still inadeq uate. Based on the nursing note, she finishes about 25%-50% of her food. We will be rechecking another base met tomorrow. Overall, agree with current management.
[2017-04-06] MEDS: Sodium Chloride 0.45% 1,000 ML IV SCH (09:19)
[2017-04-06] MEDS: Dextrose 5% in Water 1,000 ML IV SCH (09:19)
[2017-04-06] MEDS: Sotalol HCl 80 MG TAB PO SCH ×2 (09:33→20:51)
[2017-04-06] MEDS: hydrALAZINE 25 MG TAB PO SCH ×3 (09:35→20:52)
[2017-04-06] MEDS: Aggrenox 200-25mg CAP PO SCH ×2 (09:35→20:52)
[2017-04-06] MEDS: FLUoxetine HCl 20 MG CAP PO SCH (09:36)
[2017-04-06] MEDS: Enoxaparin Sodium 80 MG/0.8 ML SYRINGE SC SCH (09:36)
[2017-04-06] MEDS: Insulin Detemir 100 UNITS/ML 25 UNITS in Pre-Filled Syringe 1 EACH SC SCH (09:45)
[2017-04-06] MEDS ORDERED: Ondansetron HCl/PF 4 MG/2 ML Vial SLOW IVP PRN (13:52)
[2017-04-06] MEDS: Donepezil HCl 5 MG TAB PO SCH (20:52)
[2017-04-06] MEDS: Gabapentin 100 MG CAP PO SCH (20:53)
[2017-04-07] MEDS: Sodium Chloride 0.45% 1,000 ML IV SCH ×2 (01:20→16:33)
[2017-04-07] MEDS: Dextrose 5% in Water 1,000 ML IV SCH ×2 (01:22→16:50)
[2017-04-07 06:39] LABS: ALT (SGPT) Less than 7 U/L (8-55); AST (SGOT) 13 U/L (5-34); Alkaline Phosphatase 29 U/L (40-150); Anion Gap 11 mmol/L (10-20); BUN (Urea Nitrogen) 44 mg/dL (9.8-20.1); Bilirubin, Total 0.4 mg/dL (0.2-1.2); Calc. Creatinine Clearance 21 mL/min (70-130); Calcium 8.5 mg/dL (7.8-10.44); Carbon Dioxide 22 mmol/L (23-31); Chloride 109 mmol/L (98-107); Estimated GFR-MDRD 13; Globulin 2.8 g/dL (2.4-3.5); Glucose 77 mg/dL (80-115); Potassium 3.6 mmol/L (3.5-5.1); Protein, Total 5.8 g/dL (6.0-8.3); Sodium 138 mmol/L (136-145)
--- NOTE | 2017-04-07 08:24 | PRG ---
DATE OF SERVICE: 04/07/2017 SUBJECTIVE: The patient had a good night. She is awake. She is alert. Her IV came out this mornin g. Unfortunately, her creatinine did not show a great improvement. Her BUN is 44, creatinine 3.55. PHYSICAL EXAMINATION: GENERAL: Upon evaluation, she is awake, alert, and oriented. VITAL SIGNS: Her blood pressure is 170/80, pulse 50, respiration rate 18. She is afebrile. NECK: Supple with no increased JVP or carotid bruit. Carotid had good upstroke with no thyromegaly. COR: Regular rate and rhythm with normal first and second heart sound. There was no murmur, S3, S4, or thrill. CHEST: Symmetrical. Clear to auscultation and percussion. ABDOMEN: Soft, nontender with normoactive bowel sounds. There is no bruit or organomegaly. EXTREMITIES: No edema or cyanosis. She had palpable pedal pulses. SKIN: There is no evidence of ulceration, lesion, or rash. NEUROLOGIC: She is awake, alert, and oriented to person, place and time. LABORATORY DATA: Echo showed EF of 40%-45%. ASSESSMENT: 1. Nonsustained ventricular tachycardia. 2. Renal insufficiency. 3. History of cerebrovascular accident. 4. Recent pneumonia. 5. Hypertension. PLAN: We will ask Cardiology to see the patient in consultation to see if there is anything that can be added for her depressed EF, also we will leave the transfer up to Dr. Vogel, when he shanon comforta ble, sending her back to [facility]. If the patient is still here tomorrow, we will follow up with rufino gallardo in the morning. This is EBEN Fowler dictating for Dr. Lee Grewal.
[2017-04-07] MEDS: Amlodipine 5 MG TAB PO SCH (09:46)
[2017-04-07] MEDS: hydrALAZINE 25 MG TAB PO SCH ×3 (09:46→21:14)
[2017-04-07] MEDS: FLUoxetine HCl 20 MG CAP PO SCH (09:46)
[2017-04-07] MEDS: Sotalol HCl 80 MG TAB PO SCH (09:46)
[2017-04-07] MEDS: Aggrenox 200-25mg CAP PO SCH ×2 (09:46→21:14)
[2017-04-07] MEDS: Insulin Detemir 100 UNITS/ML 25 UNITS in Pre-Filled Syringe 1 EACH SC SCH (09:48)
[2017-04-07] MEDS: Enoxaparin Sodium 80 MG/0.8 ML SYRINGE SC SCH (09:49)
--- NOTE | 2017-04-07 10:11 | PRG ---
DATE OF SERVICE: 04/07/2017 RENAL MEDICINE SUBJECTIVE: Ms. Sorenson is a 66-year-old white female with a history of vascular dementia and seen b y the Renal Service for her acute kidney injury. Initially, this was thought to be simple volume dep letion. Empiric volume repletion has been done. There was some improvement with renal function. Ho wever, in the last 2 days, renal function is unimproved and steadily remaining at creatinine of 3.5. My concern is there may be superimposed acute tubular necrosis. For the moment, we will continue em piric volume repletion with half normal saline at 125 mL per hour. The patient voices no complaints or chest pain, no shortness of breath. PHYSICAL EXAMINATION: VITAL SIGNS: Blood pressure 150/73-177/80, heart rate 49, respiratory rate 20, temperature 97.4, pul se ox 93%. GENERAL: Noted to be awake, supine, comfortable, not in distress. SKIN: Adequate turgor. HEENT: Pinkish conjunctivae, anicteric sclerae. NECK: No neck mass, no carotid bruits, no JVD. CHEST: No deformities. LUNGS: Clear breath sounds. No wheezing, no crackles. HEART: Normal sinus rhythm. No murmurs, no gallops, no rubs. ABDOMEN: Globular, soft, nontender, no masses. EXTREMITIES: No edema, no deformities. MEDICATIONS: Medications of 04/07/2017 was reviewed. LABORATORY DATA: Laboratories of 04/07/2017; sodium 138, potassium 3.6, chloride 109, carbon dioxide 22, BUN 44, creatinine 3.55, glucose 77, calcium 8.5, AST 13, ALT less than 7, albumin 3.0. ASSESSMENT AND PLAN: 1. Acute kidney injury - unimproved renal function in the last 2 days. Consideration for a superimp osed acute tubular necrosis remains. She has received adequate volume repletion in the last several days. Creatinine did improve initially with volume repletion, but has plateaued at creatinine of 3.5 . The possibility of acute tubular necrosis remains with this patient. Continue supportive care. Sh ould the renal function relatively be stable by tomorrow, we can consider discharging this patient. We can follow her up at the [facility]. For the moment, continue half normal saline. Continue sup portive care. Of interest, the patient still has decreased p.o. intake and that is the only concern when she gets discharged back to the [facility]. 2. Recheck basic metabolic panel in a.m.
[2017-04-07] MEDS ORDERED: Sotalol HCl 80 MG TAB PO SCH (21:00)
[2017-04-07] MEDS: Dextrose 5 %-0.45 % NaCl 1,000 ML IV SCH (21:13)
[2017-04-07] MEDS: Donepezil HCl 5 MG TAB PO SCH (21:14)
[2017-04-07] MEDS: Gabapentin 100 MG CAP PO SCH (21:14)
--- NOTE | 2017-04-07 23:35 | CON ---
DATE OF CONSULTATION: 04/07/2017 HISTORY OF PRESENT ILLNESS: Sulema Sorenson is a 66-year-old prison patient , who underwent cardiac catheterization in 07/2013 for an abnormal Cardiolite. She was found to have diffuse 3-vessel coronary artery disease - 10% left main, 20% proximal LAD, 50% distal LAD, 60% first diagonal, total occlusion of the ramus which was filled retrograde, 20% proximal circumflex, 50% mid circumflex, 80% lesion in the mid right coronary artery, and 50% distal right coronary artery stenosis. She underwent placement of Vision 3.5 x 15 mm stent in the mid right coronary artery. She also had been hospitalized prior to that in 03/2013 with atrial fibrillation with fast ventricular response converted with IV Cardizem and beta- ravindra. In 01/2015, she underwent flutter ablation. She also had cardioversion at that time. She was also admitted in 11/2015 with atrial flutter. She was kept on Xarelto for stroke prophylaxis. It was found that she had been forgetting to take her medications at times because the home health nurse would only come once a week. Her dose of sotalol was increased up to 80 mg b.i.d., metoprolol slightly increased also. I am not certain where but somewhere down the line her dosage was increased to 120 b.i.d. The last time she was seen in the office was in 06/2015 prior to her most recent hospitalization. She now is hospitalized with 2 days of profuse diarrhea as well as nausea and vomiting from the prison. She was found to have an elevated BUN and creatinine with hydration, this is not significantly improved. Since being admitted, her metoprolol and sotalol 120 b.i.d. have been held because at that time she was somewhat bradycardic. She then had a 4-beat run of idioventricular type rhythm at 120 per minute and Cardiology consultation was requested. Ms. Sorenson denies any chest discomfort or shortness of breath. She denies any palpitations or rapid heartbeat. She denies any lightheadedness, dizziness, or syncope. PAST MEDICAL HISTORY: 1. Coronary artery disease, paroxysmal atrial fibrillation, history of atrial flutter status post ablation. 2. Multiple CVAs and transient ischemic attacks. 3. Hypertension. 4. Anxiety/depression. 5. Hyperlipidemia. 6. Diabetes. OPERATIONS: Stent placement in the right coronary artery, radiofrequency ablation of atrial flutter, cholecystectomy. MEDICATIONS: Aggrenox 1 b.i.d., atorvastatin 40 at bedtime, Xarelto 20 mg daily , donepezil 23 daily, fenofibrate 145 daily, gabapentin 100 at bedtime, Apresoline 50 t.i.d., insulin, metformin 500 b.i.d., metoprolol 25 b.i.d., sotalol 120 b.i.d., Ditropan 15 daily, multivitamins. ALLERGIES: LISINOPRIL and NAPROXEN. SOCIAL HISTORY: She does not smoke or drink. FAMILY HISTORY: Unremarkable. REVIEW OF SYSTEMS: Twelve-point review of systems is unremarkable. PHYSICAL EXAMINATION: VITAL SIGNS: Blood pressure 145/74, pulse of 50. HEENT: PERRL. NECK: Supple. CHEST: Clear. CARDIAC: S1 and S2 are normal without any S3, S4, or murmurs. ABDOMEN: Normal bowel sounds without tenderness or organomegaly. EXTREMITIES: Revealed no clubbing, cyanosis, or edema. NEUROLOGIC: Grossly intact except for some stuttering and hesitation of her words and some left facial weakness. LABORATORY DATA: EKG revealed sinus bradycardia with somewhat prolonged QT interval. Sodium 138, potassium 3.6, chloride 109, carbon dioxide 22, BUN 44, creatinine 3.55, troponin I 0.170 one month ago. Hemoglobin 10.6, hematocrit 31.9, white count 6100, platelets 165,000. IMPRESSION: 1. Accelerated idioventricular rhythm with wide complex at 120 per minute for 4 beats. Some of this is doubtly due to withdrawal of her antiarrhythmic medications. 2. History of paroxysmal atrial fibrillation. 3. History of atrial flutter, status post ablation. 4. Recurrent cerebrovascular accidents. 5. History of stent placement in the right coronary. 6. Three vessel coronary artery disease. 7. Hypertension. 8. Hypercholesterolemia. 9. Diarrhea. 10. Acute kidney injury. PLAN: I would resume the sotalol; however, at lower dose of 80 mg b.i.d. She does not sound as if she has any symptoms referable to bradycardia, i.e., no lightheadedness, dizziness, or episodes of syncope. Her rhythm will continue to be monitored; however, when she is started back on sotalol, she probably can go back to the prison. MTDD
[2017-04-08] MEDS: Dextrose 5 %-0.45 % NaCl 1,000 ML IV SCH ×3 (00:34→21:49)
[2017-04-08 05:58] LABS: ALT (SGPT) Less than 7 U/L (8-55); AST (SGOT) 12 U/L (5-34); Alkaline Phosphatase 32 U/L (40-150); Anion Gap 13 mmol/L (10-20); BUN (Urea Nitrogen) 39 mg/dL (9.8-20.1); Bilirubin, Total 0.3 mg/dL (0.2-1.2); Calc. Creatinine Clearance 23 mL/min (70-130); Carbon Dioxide 21 mmol/L (23-31); Chloride 108 mmol/L (98-107); Estimated GFR-MDRD 14; Globulin 2.9 g/dL (2.4-3.5); Glucose 113 mg/dL (80-115); Potassium 3.4 mmol/L (3.5-5.1); Protein, Total 5.9 g/dL (6.0-8.3); Sodium 139 mmol/L (136-145)
[2017-04-08 06:32] LABS: Calcium 8.4 mg/dL (7.8-10.44)
[2017-04-08] MEDS: Amlodipine 5 MG TAB PO SCH (09:17)
[2017-04-08] MEDS: INSULIN DETEMIR SC SCH (09:18)
[2017-04-08] MEDS: Aggrenox 200-25mg CAP PO SCH ×2 (09:18→21:50)
[2017-04-08] MEDS: Enoxaparin Sodium 80 MG/0.8 ML SYRINGE SC SCH (09:18)
[2017-04-08] MEDS: hydrALAZINE 25 MG TAB PO SCH ×3 (09:18→21:51)
[2017-04-08] MEDS: FLUoxetine HCl 20 MG CAP PO SCH (09:18)
[2017-04-08] MEDS: PRE FILLED SC SCH (09:18)
--- NOTE | 2017-04-08 11:09 | PRG ---
This is TIMA Fowler-Chani, dictating for Dr. Lee Grewal DATE OF SERVICE: 04/08/2017 SUBJECTIVE: The patient had a good night. She ate probably about 25% of her breakfast. Her blood s ugar was low. Yesterday, the blood sugar fasting in the morning was 70 and even though she only ate 25%, the nurse gave her insulin instead of calling us and therefore her blood sugar dropped to 30. I did not make changes to the insulin and told the nurse to check her blood sugar every 3 hours during the night. Upon evaluation, the patient is awake, alert, and oriented to person, place and time. S he denies any problems. OBJECTIVE: VITAL SIGNS: Blood pressure is 165/75, pulse 50, respirations 18. She is afebrile. NECK: Supple with no increased JVP or carotid bruit. Carotid had good upstroke with no thyromegaly. COR: Regular rate and rhythm. CHEST: Symmetrical. Clear to auscultation and percussion. ABDOMEN: Soft and nontender with normoactive bowel sounds. No bruit or organomegaly. EXTREMITIES: No edema or cyanosis. She had palpable pedal pulses. SKIN: There is no evidence of ulcers, lesion, or rash. NEUROLOGIC: She is awake and alert to person, place, and time. LABORATORY DATA: Her BUN is 39, creatinine is 3.33, and potassium is 3.4. There is no CBC in the art. ASSESSMENT: 1. Nonsustained ventricular tachycardia. 2. Depressed EF. 3. Diabetes. 4. History of cerebrovascular accident. 5. Hypokalemia. PLAN: 1. We will continue IV fluids. 2. We will also replenish potassium. 3. We will follow up with a lab in the morning to also include a CBC and CMP. The patient verbalize d understanding and all questions answered to satisfaction.
--- NOTE | 2017-04-08 11:57 | PRG ---
DATE OF SERVICE: 04/08/2017 RENAL MEDICINE SUBJECTIVE: Ms. Sorenson is a 66-year-old white female who was seen by the Renal Service for an acute kidney injury secondary to volume depletion. She has been receiving volume repletion, this has impr genesis her creatinine. However, the creatinine has not completely normalized suggesting the possibilit y of a mild ATN with this patient. Continue supportive care. Patient was recently seen by Cardiolog y due to the decreased EF. The plan is simply to observe 1 more day. She has no new complaints toda y and patient denies any chest pain or shortness of breath. PHYSICAL EXAMINATION: VITAL SIGNS: Blood pressure 148/67, heart rate 60, respiratory rate 16, temperature 98, pulse ox 95% . GENERAL: Noted to be awake, alert, dysarthric. HEENT: Can follow simple commands. SKIN: Adequate turgor. HEENT: Pinkish conjunctivae. Anicteric sclerae. NECK: No neck mass, no carotid bruits, no JVD. CHEST: No deformities. LUNGS: Decreased breath sounds. HEART: Normal sinus rhythm. No murmurs, no gallops or rubs. ABDOMEN: Globular, soft, nontender. EXTREMITIES: No edema. MEDICATIONS: Of 04/08/2017 reviewed. LABORATORY DATA: Of 04/04/2017. White count 6.1, hemoglobin 10.6. On 04/08/2017, sodium 139, potas sium 3.4, chloride 108, carbon dioxide 21, BUN 39, creatinine 3.33, albumin 3.0. ASSESSMENT AND PLAN: 1. Acute kidney injury secondary to prerenal azotemia with the possibility of a superimposed mild ac [place] tubular necrosis. Continue supportive care. GFR is actually stable in the last 2 days. From th e renal point of view, this patient can be discharged and I can follow her up at the [facility]al Clinic. 2. Decreased ejection fraction - Cardiology is following. No indication for any cardiac catheteriza tion at the present time. 3. Diarrhea - clinically much improved. I have encouraged this patient to increase her p.o. intake. Continue IV fluids.
--- NOTE | 2017-04-08 12:21 | EKG ---
Test Reason : Blood Pressure : / mmHG Vent. Rate : 057 BPM Atrial Rate : 057 BPM P-R Int : 170 ms QRS Dur : 092 ms QT Int : 566 ms P-R-T Axes : 039 -21 011 degrees QTc Int : 550 ms Sinus bradycardia Prolonged QT Abnormal ECG Confirmed by ALLIE DAWN M.D. ([id number]), health editor ELIZABETH CARBONE ([id number]) on 04/08/2017 12:21:23 PM Referred By: Confirmed By:ALLIE DAWN M.D.
[2017-04-08] MEDS: Donepezil HCl 5 MG TAB PO SCH (21:51)
[2017-04-08] MEDS: Gabapentin 100 MG CAP PO SCH (21:51)
[2017-04-09 05:41] LABS: #Eosinphils 0.4 thou/uL (0.0-0.7); #Lymphocytes 0.9 thou/uL (1.20-3.40); #Monocytes 0.5 thou/uL (0.11-0.59); #Neutrophils 4.4 thou/uL (1.40-6.50); %Basophils 0.7 % (0.0-1.0); %Eosinophils 6.6 % (0.0-10.0); %Lymphocytes 14.6 % (21.0-51.0); %Monocytes 7.2 % (0.0-10.0); %Neutrophils 70.8 % (42.0-75.0); Hemoglobin 10.7 g/dL (12.0-16.0); Mean Corpuscular HGB CONC 33.5 g/dL (32.0-36.0); Mean Corpuscular Hemoglobin 32.2 pg (27.0-31.0); Mean Corpuscular Volume 96.2 fl (81.0-99.0); Mean Platelet Volume 7.6 fL (7.4-10.4); Platelet Count 201 thou/uL (130-400); RBC Distribution Width 11.4 % (11.5-14.5); Red Blood Cell (RBC) Count 3.32 mill/uL (4.20-5.40); White Blood Cell (WBC) Count 6.2 thou/uL (4.8-10.8)
[2017-04-09 05:56] LABS: ALT (SGPT) Less than 7 U/L (8-55); AST (SGOT) 10 U/L (5-34); Albumin 2.9 g/dL (3.4-4.8); Alkaline Phosphatase 29 U/L (40-150); Anion Gap 10 mmol/L (10-20); BUN (Urea Nitrogen) 35 mg/dL (9.8-20.1); Bilirubin, Total 0.4 mg/dL (0.2-1.2); Calc. Creatinine Clearance 24 mL/min (70-130); Calcium 8.4 mg/dL (7.8-10.44); Carbon Dioxide 22 mmol/L (23-31); Chloride 111 mmol/L (98-107); Estimated GFR-MDRD 15; Globulin 2.8 g/dL (2.4-3.5); Glucose 106 mg/dL (80-115); Potassium 3.4 mmol/L (3.5-5.1); Protein, Total 5.7 g/dL (6.0-8.3); Sodium 140 mmol/L (136-145)
[2017-04-09] MEDS: Dextrose 5 %-0.45 % NaCl 1,000 ML IV SCH ×2 (06:45→12:41)
[2017-04-09] MEDS: FLUoxetine HCl 20 MG CAP PO SCH (09:54)
[2017-04-09] MEDS: hydrALAZINE 25 MG TAB PO SCH ×3 (09:54→21:09)
[2017-04-09] MEDS: Aggrenox 200-25mg CAP PO SCH ×2 (09:54→21:03)
[2017-04-09] MEDS: Amlodipine 5 MG TAB PO SCH (09:54)
[2017-04-09] MEDS: Enoxaparin Sodium 80 MG/0.8 ML SYRINGE SC SCH (09:54)
[2017-04-09] MEDS: INSULIN DETEMIR SC SCH (09:55)
[2017-04-09] MEDS: PRE FILLED SC SCH (09:55)
--- NOTE | 2017-04-09 10:23 | PRG ---
DATE OF SERVICE: 04/09/2017 This is TIMA Fowler-Chani dictating for Lee Grewal M.D. SUBJECTIVE: The patient had a good night Unfortunately, she did not eat a very good breakfast, but she is drinking orange juice. Her creatinine is better at 3.12. Her BUN is 35. Her potassium is st ill low at 3.4. PHYSICAL EXAMINATION: GENERAL: She is awake, alert, and oriented to person, place and time. VITAL SIGNS: Her blood pressure is 190/90, pulse 50, respirations 18. She is afebrile. NECK: Supple with no increased JVP or carotid bruit. Carotid had good upstroke with no thyromegaly. COR: Regular rate and rhythm. CHEST: Symmetrical. Clear to auscultation and percussion. ABDOMEN: Soft, nontender with normoactive bowel sounds. There is no bruit or organomegaly. EXTREMITIES: No edema or cyanosis. Palpable pedal pulses. SKIN: There is no evidence of ulcer lesion, or rash. NEUROLOGIC: She is awake, alert, and oriented to person, place, and time. ASSESSMENT: 1. Bradycardia. 2. History of paroxysmal atrial fibrillation. 3. Acute renal insufficiency. 4. Hypertension. 5. Hypokalemia. 6. History of cerebrovascular accident. PLAN: 1. We will schedule daily potassium. 2. We will change his Norvasc to 10. 3. We will follow up with lab in the morning. 4. I hope to send the patient back to [facility] tomorrow if all is stable. The patient verbalized u nderstanding and all questions answered to satisfaction.
--- NOTE | 2017-04-09 12:02 | PRG ---
DATE OF SERVICE: 04/09/2017 SUBJECTIVE: Ms. Sorenson is a 66-year-old white female, who was seen by the Renal Service for acute k idney injury secondary to hemodynamically-mediated renal dysfunction. The patient has received IV hy dration. Slow improvement of the renal function is noted. The possibility of a superimposed acute t ubular necrosis is a possibility with this patient. This morning, she voices no new complaints, no c hest pain or shortness of breath. The concern is still the decreased p.o. intake of this patient. T he possibility of discharge to [facility] is being considered in the morning. OBJECTIVE: VITAL SIGNS: Blood pressure is 191/93, heart rate 55, respiratory rate 16, temperature 97.6, pulse o x 94%. GENERAL: Noted to be awake, not in distress, comfortable. SKIN: Adequate turgor. HEENT: Pinkish conjunctivae, anicteric sclerae. NECK: No neck mass, no carotid bruits, no JVD. CHEST: No deformities. LUNGS: Clear breath sounds. No wheezing, no crackles. HEART: Normal sinus rhythm. No murmur, no gallops, no rubs. ABDOMEN: Globular, soft, nontender, no masses. EXTREMITIES: No edema, no deformities. NEUROLOGIC: The patient is dysarthric, decreased motor left side of the body having chronic in natur e. MEDICATIONS: Medications of 04/09/2017 was reviewed. LABORATORY DATA: Laboratories of 04/09/2017. White count 6.2, hemoglobin 10.7, platelet count 201,0 00. Sodium 140, potassium 3.4, chloride 111, carbon dioxide 22, BUN 35, creatinine 3.12. AST 10, AL T is less than 7, albumin 2.9. ASSESSMENT AND PLAN: 1. Mild hyperkalemia, change IV fluid D5 half normal with at least 20 mEq of KCl to run at a rate of 100 mL per hour. 2. Acute kidney injury -- hemodynamically-mediated renal dysfunction, although superimposed acute tu bular necrosis could not be completely ruled out. Continue supportive care on gentle volume hydratio n. 3. Decreased p.o. intake. Continue to observe. In the near future if this is persistent, PEG tube may be needed for the patient. 4. Decreased ejection fraction -- Cardiology is following, supportive care. Agree with current management.
[2017-04-09] MEDS: D5 1/2 NS w/20 mEq KCL 1,000 ML IV SCH ×2 (12:42→15:27)
--- NOTE | 2017-04-09 15:01 | PRG ---
DATE OF SERVICE: 04/09/2017 SUBJECTIVE: Ms. Sorenson is more alert today. No current complaints. Her creatinine did decrease sl ightly from 3.3 down to 3.1. Sotalol has been discontinued. OBJECTIVE: VITAL SIGNS: Blood pressure 145/77, pulse 63 and temperature 96.6. LUNGS: Clear to auscultation. HEART: Regular rate and rhythm. ABDOMEN: Soft, nontender and nondistended. EXTREMITIES: No edema. SKIN: No significant changes. IMPRESSION: Atrial fibrillation. RECOMMENDATIONS: I have discontinued sotalol, given a creatinine of 3.0. She may benefit from amiod arone therapy. We will leave the discussion to Dr. Miguel Arango. She is also on enoxaparin 80 mg subcu x1 given renal insufficiency. Long acting will be at the discretion of primary cardiolo gist.
[2017-04-09] MEDS ORDERED: Bisacodyl 10 MG SUPP PR PRN (16:44)
[2017-04-09] MEDS: Milk Of Magnesia 30 ML UDCUP PO SCH (21:03)
[2017-04-09] MEDS: Gabapentin 100 MG CAP PO SCH (21:03)
[2017-04-09] MEDS: Donepezil HCl 5 MG TAB PO SCH (21:03)
[2017-04-10] MEDS: D5 1/2 NS w/20 mEq KCL 1,000 ML IV SCH ×3 (02:20→21:45)
[2017-04-10 06:19] LABS: ALT (SGPT) 8 U/L (8-55); AST (SGOT) 11 U/L (5-34); Albumin 2.9 g/dL (3.4-4.8); Alkaline Phosphatase 33 U/L (40-150); Anion Gap 12 mmol/L (10-20); BUN (Urea Nitrogen) 31 mg/dL (9.8-20.1); Bilirubin, Total 0.4 mg/dL (0.2-1.2); Calc. Creatinine Clearance 25 mL/min (70-130); Calcium 8.4 mg/dL (7.8-10.44); Carbon Dioxide 22 mmol/L (23-31); Chloride 109 mmol/L (98-107); Estimated GFR-MDRD 16; Globulin 2.9 g/dL (2.4-3.5); Glucose 109 mg/dL (80-115); Potassium 3.5 mmol/L (3.5-5.1); Protein, Total 5.8 g/dL (6.0-8.3); Sodium 139 mmol/L (136-145)
[2017-04-10] MEDS: hydrALAZINE 25 MG TAB PO SCH ×3 (09:11→21:44)
[2017-04-10] MEDS: Aggrenox 200-25mg CAP PO SCH ×2 (09:12→21:45)
[2017-04-10] MEDS: PRE FILLED SC SCH (09:12)
[2017-04-10] MEDS: FLUoxetine HCl 20 MG CAP PO SCH (09:12)
[2017-04-10] MEDS: INSULIN DETEMIR SC SCH (09:12)
[2017-04-10] MEDS: Enoxaparin Sodium 80 MG/0.8 ML SYRINGE SC SCH (09:12)
[2017-04-10] MEDS: Amlodipine 10 MG TAB PO SCH (09:12)
--- NOTE | 2017-04-10 09:16 | PRG ---
DATE OF SERVICE: 04/10/2017. SUBJECTIVE: Ms. Sorenson is a 66-year-old white female seen for an acute kidney injury secondary to h emodynamically mediated renal dysfunction. She was empirically given volume repletion. Creatinine d id improve, but has not normalized back to normal. Superimposed acute tubular necrosis is being cons idered. She was also noted to have a decreased ejection fraction. The only concern what we have in the last several days is that she continues to have decreased p.o. intake. No new complaints. No chest pain, no shortness of breath. PHYSICAL EXAMINATION: VITAL SIGNS: Blood pressure 184/79, heart rate 68, respiratory rate 20, temperature 98.2, pulse ox 9 4%. GENERAL: She is awake, following commands, oriented to 2 spheres, but dysarthric. SKIN: Adequate turgor. HEENT: She has pinkish conjunctivae, anicteric sclerae. NECK: No neck mass, no carotid bruits, no JVD. CHEST: No deformities. LUNGS: Clear breath sounds. No wheezing, no crackles. HEART: Normal sinus rhythm. No murmur, no gallops or rubs. ABDOMEN: Globular, soft, nontender. No masses. EXTREMITIES: No edema, no deformities. MEDICATIONS: 04/10/2017 - Reviewed. LABORATORY: 04/09/2017 - Hemoglobin 10.7. Sodium 139, potassium 3.5, chloride 109, carbon dioxide 2 2, BUN 31, creatinine 3.01, glucose 109, calcium 8.4, albumin 2.9. ASSESSMENT AND PLAN: 1. Acute kidney injury - initially felt to be hemodynamically mediated renal dysfunction. However, renal function has not normalized. A superimposed acute tubular necrosis is considered. Management is supportive care. There is no indication for any dialytic intervention. Continue gentle volume re pletion. My concern is that this patient still has poor p.o. intake. She may need in the future a p ossible PEG tube placement. 2. Vascular dementia, supportive care. 3. Decreased ejection fraction. Cardiology is following. No indication for any cardiac catheteriza tion for the moment. Overall I agree with current management.
[2017-04-10] MEDS: Milk Of Magnesia 30 ML UDCUP PO SCH (21:44)
[2017-04-10] MEDS: Gabapentin 100 MG CAP PO SCH (21:44)
[2017-04-10] MEDS: Donepezil HCl 5 MG TAB PO SCH (21:44)
[2017-04-11 06:18] LABS: Anion Gap 12 mmol/L (10-20); BUN (Urea Nitrogen) 30 mg/dL (9.8-20.1); Calc. Creatinine Clearance 26 mL/min (70-130); Carbon Dioxide 24 mmol/L (23-31); Chloride 108 mmol/L (98-107); Estimated GFR-MDRD 17; Glucose 106 mg/dL (80-115); Potassium 3.5 mmol/L (3.5-5.1); Sodium 140 mmol/L (136-145)
--- NOTE | 2017-04-11 06:34 | EKG ---
Test Reason : Blood Pressure : / mmHG Vent. Rate : 057 BPM Atrial Rate : 057 BPM P-R Int : 186 ms QRS Dur : 088 ms QT Int : 536 ms P-R-T Axes : 048 -11 -25 degrees QTc Int : 521 ms Sinus bradycardia Nonspecific ST and T wave abnormality Prolonged QT Abnormal ECG When compared with ECG of 09-APR-2017 12:36, (Unconfirmed) Premature atrial complexes are no longer Present Nonspecific T wave abnormality now evident in Inferior leads Nonspecific T wave abnormality now evident in Lateral leads Confirmed by LISANDRA CARTAGENA ([id number]) on 04/11/2017 6:33:53 AM Referred By: WHIT Confirmed By:LISANDRA CARTAGENA
--- NOTE | 2017-04-11 08:26 | PRG ---
DATE OF SERVICE: 04/11/2017 SUBJECTIVE: The patient had a good night. She is drinking her juice. She has not started eating he r breakfast yet. Her creatinine is much better with her BUN better as well at 30 and her creatinine is 2.86. Her pota ssium is normalized. Her CBC is normal. Her EKG showed sinus rhythm. PHYSICAL EXAMINATION: VITAL SIGNS: Her blood pressure is 150/80, pulse 50, respirations 20. She is afebrile. NECK: Supple with no increased JVP or carotid bruit. Carotid had good upstroke with no thyromegaly. COR: Regular rate and rhythm. CHEST: Symmetrical. Clear to auscultation and percussion. ABDOMEN: Soft, nontender with normoactive bowel sounds. No bruit or organomegaly. EXTREMITIES: No edema or cyanosis. She had palpable pedal pulses. SKIN: There is no evidence of ulcer, lesion or rash. NEUROLOGIC: She is awake, alert and oriented. ASSESSMENT: 1. Paroxysmal atrial fibrillation. 2. History of cerebrovascular accident. 3. Hypertension. 4. Diabetes. 5. Hyperlipidemia. 6. Acute kidney injury, improved. PLAN: There is some confusion being bounced back and forth whether the patient needs sotalol or Cord arone, so I will ask the nurse to kindly call the thermoforming operator to see which one he would rather prefe r. I do realize that one physician had said resuming sotalol when the creatinine is less 2, but then another physician had mentioned maybe doing Cordarone. We will clarify that order and once okay can send back to [facility].
--- NOTE | 2017-04-11 09:18 | PRG ---
DATE OF SERVICE: 04/11/2017 SUBJECTIVE: Ms. Sorenson is a 66-year-old white female, who was admitted for an acute kidney injury s econdary to volume depletion. Empiric volume repletion has been given. She is currently undergoing continuous IV hydration. Creatinine has plateaued in the low 3s in the last few days. This morning, the creatinine slightly improved at 2.86. My suspicion is she may have had superimposed acute tubul ar necrosis. She seems to be tolerating the IV fluid. Her p.o. intake is somewhat improved. She de nies any chest pain or shortness of breath. OBJECTIVE: VITAL SIGNS: Blood pressure is 155/82, heart rate 53, respiratory rate 20, temperature 97.9, and pul se ox 94%. GENERAL: The patient is awake and follow simple commands. Dysarthric, not in distress. SKIN: Adequate turgor. HEENT: She has pinkish conjunctivae, anicteric sclerae. NECK: No neck mass, no carotid bruits, no JVD. CHEST: No deformities. LUNGS: Clear breath sounds, no wheezing, no crackles. HEART: Normal sinus rhythm. No murmur, no gallops, no rubs. ABDOMEN: Globular, soft, nontender, no masses. EXTREMITIES: No edema, no deformities. NEUROLOGIC: Dysarthric. Decreased motor left side. MEDICATIONS: 04/11/2017 - reviewed. LABORATORY DATA: 04/09/2017 - White count 6.2, hemoglobin 10.7. On 04/11/2017, sodium 140, potassiu m 3.5, chloride 108, carbon dioxide 24, BUN 30, creatinine 2.86, glucose 106, and calcium 9.0. ASSESSMENT AND PLAN: 1. Acute kidney injury - slowly improving renal function. Creatinine noted at 2.86. I would probab ly continue the current IV hydration. This patient may have had a superimposed acute tubular necrosi s. There is no indication for any dialytic intervention with this patient. 2. Vascular dementia - supportive care. Patient also on Aricept. Overall, agree with current management. Recheck basic met and CBC in a.m.
[2017-04-11] MEDS: INSULIN DETEMIR SC SCH (10:56)
[2017-04-11] MEDS: PRE FILLED SC SCH (10:56)
[2017-04-11] MEDS: Enoxaparin Sodium 80 MG/0.8 ML SYRINGE SC SCH (10:58)
[2017-04-11] MEDS: hydrALAZINE 25 MG TAB PO SCH ×2 (10:59→15:09)
[2017-04-11] MEDS: Aggrenox 200-25mg CAP PO SCH (10:59)
[2017-04-11] MEDS: Amlodipine 10 MG TAB PO SCH (11:00)
[2017-04-11] MEDS: FLUoxetine HCl 20 MG CAP PO SCH (11:00)
[2017-04-11] MEDS: D5 1/2 NS w/20 mEq KCL 1,000 ML IV SCH ×2 (11:23→17:36)
[2017-04-11 13:33] VITALS: BMI 29.8
[2017-04-11 15:14] VITALS: BP 124/65
[2017-04-11 15:44] VITALS: TEMP 98.2
[2017-04-11] MEDS ORDERED: Amiodarone 200 MG TAB PO SCH (21:00)
--- NOTE | 2017-04-12 15:09 | DIS ---
FINAL DIAGNOSES: 1. Acute kidney injury. 2. Diarrhea. 3. Dehydration. 4. Hypomagnesemia. 5. History of dementia. 6. Diabetes. COMPLICATIONS: None. PROCEDURES: None. CONSULTANTS: Dr. Arango and Dr. Vogel. HOSPITAL COURSE: This is a pleasant female who is a prison resident, who has been experiencing 2-day history of diarrhea, nausea, and vomiting. She presented to the hospital where lab was obtain ed that showed white cells to be 7.8, H&H was normal. Her sodium 143, potassium 4.2, BUN 58, creatin ine 4.98, calcium 9.1. Alkaline phosphatase was 32 and ALT was 9. The patient was started on IV flu ids. She was also found to have prolonged QT interval. The patient was seen by Dr. Vogel for acute ki dney injury. The patient's home medications were adjusted accordingly. The patient was seen by Dr. Arango and Dr. Arango did feel like that we could resume sotalol; however, at a lower dose of 80 b.i.d. He did agree that we should continue to monitor rhythm and eventually go back to the prison. The patient's appetite was okay. Her vital signs were stable. Her creatinine improved to 2.8 6. Her blood sugar remained normal. Her urine culture was negative. The patient progressed nicely throughout the hospitalization. The patient's echocardiogram showed depressed EF of 40-45% with mode rate MR, trace tricuspid regurgitation. The aortic valve was sclerotic. The patient was felt okay t o go back to [facility]. She was discharged to [facility] in stable condition. She will continue the same diet and the same medications that were just in the hospital. Dr. Grewal would be the attending at [facility]. The patient left in stable condition.
--- NOTE | 2017-06-05 20:42 | EKG ---
Test Reason : Blood Pressure : / mmHG Vent. Rate : 058 BPM Atrial Rate : 058 BPM P-R Int : 182 ms QRS Dur : 090 ms QT Int : 536 ms P-R-T Axes : 069 000 040 degrees QTc Int : 526 ms Sinus bradycardia with sinus arrhythmia ST abnormality, possible digitalis effect Prolonged QT Abnormal ECG When compared with ECG of 02-APR-2017 12:59, (Unconfirmed) T wave inversion no longer evident in Inferior leads Confirmed by ROBYN FERGUSON M.D. ([id number]) on 06/05/2017 8:42:07 PM Referred By: Deborah SHERMAN Confirmed By:ROBYN FERGUSON M.D.
--- NOTE | 2017-06-05 22:05 | EKG ---
Test Reason : Blood Pressure : / mmHG Vent. Rate : 069 BPM Atrial Rate : 069 BPM P-R Int : 196 ms QRS Dur : 090 ms QT Int : 462 ms P-R-T Axes : 080 -02 077 degrees QTc Int : 495 ms Sinus rhythm with Premature atrial complexes Nonspecific ST abnormality Prolonged QT Abnormal ECG When compared with ECG of 03-APR-2017 06:50, (Unconfirmed) Premature atrial complexes are now Present Confirmed by ROBYN FERGUSON M.D. ([id number]) on 06/05/2017 10:05:15 PM Referred By: MELANIE Confirmed By:ROBNY FERGUSON M.D.
== END 2017-04-11 20:11 | DRG 683 ==
LOC: ERS 12:10 → ERHOLD 14:50 → 2SE 19:09
PROVIDERS: ADMIT Specialist; ATTEND Specialist
DX: N17.0 Acute kidney failure with tubular necrosis (principal); I47.2 Ventricular tachycardia; E83.42 Hypomagnesemia; I69.354 Hemiplegia and hemiparesis following cerebral infarction affecting left non-dominant side; I45.81 Long QT syndrome; I48.0 Paroxysmal atrial fibrillation; E11.9 Type 2 diabetes mellitus without complications; E86.0 Dehydration; E78.00 Pure hypercholesterolemia, unspecified; F01.50 Vascular dementia, unspecified severity, without behavioral disturbance, psychotic disturbance, mood disturbance, and anxiety; E78.5 Hyperlipidemia, unspecified; Z79.4 Long term (current) use of insulin; Z79.84 Long term (current) use of oral hypoglycemic drugs; Z95.5 Presence of coronary angioplasty implant and graft; I10 Essential (primary) hypertension; E87.6 Hypokalemia; Z87.01 Personal history of pneumonia (recurrent); R53.1 Weakness; K52.9 Noninfective gastroenteritis and colitis, unspecified; F03.90 Unspecified dementia, unspecified severity, without behavioral disturbance, psychotic disturbance, mood disturbance, and anxiety; F41.9 Anxiety disorder, unspecified; F32.9 Major depressive disorder, single episode, unspecified; Z79.01 Long term (current) use of anticoagulants; Z79.899 Other long term (current) drug therapy; Z86.73 Personal history of transient ischemic attack (TIA), and cerebral infarction without residual deficits
CPT/HCPCS: 36415; 36416; 70551; 71045; 80048; 80053; 81001; 81003; 82570; 83735; 83880; 84300; 85025; 85520; 85610; 87086; 93005; 93010; 93306; 96360; 96365; A4216; A4353; G8996-GN-CK; G8997-GN-CK; G9162-GN-CL; G9163-GN-CJ; J1650; J1815; J2405; J3475

== ENCOUNTER 2017-04-13 01:52 | Emergency (ER) | payer MEDICARE, MEDICAID ==
[2017-04-13 03:07] LABS: #Basophils 0.1 thou/uL (0.0-0.2); #Eosinphils 0.3 thou/uL (0.0-0.7); #Lymphocytes 1.1 thou/uL (1.20-3.40); #Monocytes 0.5 thou/uL (0.11-0.59); #Neutrophils 4.7 thou/uL (1.40-6.50); %Lymphocytes 16.9 % (21.0-51.0); %Monocytes 7.5 % (0.0-10.0); %Neutrophils 70.6 % (42.0-75.0); Hemoglobin 11.8 g/dL (12.0-16.0); Mean Corpuscular HGB CONC 34.1 g/dL (32.0-36.0); Mean Corpuscular Hemoglobin 32.8 pg (27.0-31.0); Mean Corpuscular Volume 96.3 fl (81.0-99.0); Mean Platelet Volume 7.6 fL (7.4-10.4); Platelet Count 227 thou/uL (130-400); RBC Distribution Width 11.6 % (11.5-14.5); White Blood Cell (WBC) Count 6.7 thou/uL (4.8-10.8)
[2017-04-13 03:26] LABS: ALT (SGPT) 10 U/L (8-55); AST (SGOT) 14 U/L (5-34); Albumin 3.3 g/dL (3.4-4.8); Alkaline Phosphatase 40 U/L (40-150); Anion Gap 14 mmol/L (10-20); BUN (Urea Nitrogen) 32 mg/dL (9.8-20.1); Bilirubin, Total 0.5 mg/dL (0.2-1.2); Calc. Creatinine Clearance 0 mL/min (70-130); Calcium 9.1 mg/dL (7.8-10.44); Carbon Dioxide 25 mmol/L (23-31); Chloride 108 mmol/L (98-107); Estimated GFR-MDRD 17; Globulin 3.1 g/dL (2.4-3.5); Glucose 112 mg/dL (80-115); Potassium 3.5 mmol/L (3.5-5.1); Protein, Total 6.4 g/dL (6.0-8.3); Sodium 143 mmol/L (136-145)
--- NOTE | 2017-04-13 07:56 | RAD ---
PORTABLE CHEST 1 VIEW: DATE: 04/13/17. TIME: 2:42 a.m. HISTORY: Chest pain. FINDINGS: Comparison is made with the exam of 04/02/17. There are persistent mild opacities in the right middle and left lower lobes. No pneumothoraces or l arge effusions are seen. IMPRESSION: Stable exam. POS: [facility]
--- NOTE | 2017-04-13 22:00 | EKG ---
Test Reason : Blood Pressure : / mmHG Vent. Rate : 099 BPM Atrial Rate : 267 BPM P-R Int : 000 ms QRS Dur : 090 ms QT Int : 388 ms P-R-T Axes : 081 -23 054 degrees QTc Int : 497 ms Atrial flutter with variable A-V block Cannot rule out Inferior infarct , age undetermined Abnormal ECG Confirmed by LISANDRA CARTAGENA ([id number]) on 04/13/2017 10:00:16 PM Referred By: TYRONE OJEDA Confirmed By:LISANDRA CARTAGENA
== END 2017-04-13 06:53 ==
LOC: ERS 01:52
DX: R53.1 Weakness (principal); F03.90 Unspecified dementia, unspecified severity, without behavioral disturbance, psychotic disturbance, mood disturbance, and anxiety; E11.9 Type 2 diabetes mellitus without complications; E78.5 Hyperlipidemia, unspecified; I10 Essential (primary) hypertension; I48.91 Unspecified atrial fibrillation; F41.9 Anxiety disorder, unspecified; F32.9 Major depressive disorder, single episode, unspecified; Z79.4 Long term (current) use of insulin; Z79.01 Long term (current) use of anticoagulants; Z79.899 Other long term (current) drug therapy; Z86.73 Personal history of transient ischemic attack (TIA), and cerebral infarction without residual deficits
CPT/HCPCS: 36416; 71045; 80053; 83735; 83880; 85025; 93005; 96360

== ENCOUNTER 2017-04-14 17:13 | Observation (INO) | payer MEDICARE, MEDICAID ==
[2017-04-14 18:02] LABS: Bilirubin Negative (Negative); Blood, Urine Small (Negative); Clarity TURBID (Clear); Glucose, Urine (Dipstick) Negative (Negative); Leukocyte Large (Negative); Nitrite Negative (Negative); Protein, Urine (Dipstick) 100 mg/dL (Neg-Trace); Specific Gravity, Urine 1.018 (1.002-1.036); Urobilinogen 0.2 mg/dL (0.2-1.0); pH, Urine 5.5 (5.0-9.0)
[2017-04-14 18:05] LABS: Bacteria/HPF 4+ HPF (None Seen)
[2017-04-14 18:07] LABS: Pathc Cast-AUWi Flag 78.05 (0-2.49)
[2017-04-14 18:37] LABS: Hyaline Casts/LPF NONE SEEN LPF (0-3 Hyaline); Other Casts/LPF None Seen LPF (0-3 Hyaline)
[2017-04-14 19:13] LABS: #Basophils 0.1 thou/uL (0.0-0.2); #Eosinphils 0.3 thou/uL (0.0-0.7); #Lymphocytes 1.6 thou/uL (1.20-3.40); #Monocytes 0.5 thou/uL (0.11-0.59); #Neutrophils 4.2 thou/uL (1.40-6.50); %Basophils 0.8 % (0.0-1.0); %Eosinophils 3.9 % (0.0-10.0); %Lymphocytes 23.9 % (21.0-51.0); %Monocytes 7.2 % (0.0-10.0); %Neutrophils 64.1 % (42.0-75.0); Hemoglobin 10.3 g/dL (12.0-16.0); Mean Corpuscular Hemoglobin 33.1 pg (27.0-31.0); Mean Corpuscular Volume 97.4 fl (81.0-99.0); Mean Platelet Volume 7.5 fL (7.4-10.4); Platelet Count 216 thou/uL (130-400); RBC Distribution Width 11.7 % (11.5-14.5); Red Blood Cell (RBC) Count 3.11 mill/uL (4.20-5.40); White Blood Cell (WBC) Count 6.6 thou/uL (4.8-10.8)
--- NOTE | 2017-04-14 19:18 | RAD ---
PORTABLE CHEST: 04/14/17 HISTORY: Altered mental status. Heart size is upper limits of normal. Mediastinal structures appear unremarkable. No focal infiltrati ve process. IMPRESSION: No acute findings. Stable chest as compared to the prior day's study. POS: [facility]
[2017-04-14 19:35] LABS: ALT (SGPT) 8 U/L (8-55); AST (SGOT) 12 U/L (5-34); Albumin 3.2 g/dL (3.4-4.8); Alkaline Phosphatase 36 U/L (40-150); Anion Gap 16 mmol/L (10-20); BUN (Urea Nitrogen) 34 mg/dL (9.8-20.1); Bilirubin, Total 0.5 mg/dL (0.2-1.2); Calc. Creatinine Clearance 0 mL/min (70-130); Calcium 8.8 mg/dL (7.8-10.44); Carbon Dioxide 25 mmol/L (23-31); Chloride 108 mmol/L (98-107); Estimated GFR-MDRD 18; Glucose 97 mg/dL (80-115); Lipase 22 U/L (8-78); Potassium 3.5 mmol/L (3.5-5.1); Protein, Total 6.2 g/dL (6.0-8.3); Sodium 145 mmol/L (136-145)
--- NOTE | 2017-04-14 20:55 | CT ---
CT OF BRAIN PERFORMED WITHOUT CONTRAST ENHANCEMENT: 04/14/17 HISTORY: Altered mental status. COMPARISON: 10/09/16 study. There is generalized ventricular and sulcal prominence with decreased attenuation of the periventricu lar white matter consistent with some chronic white matter change. There is no signs of intracerebral hemorrhage or extra-axial fluid collections. Old left sided lacunar infarcts are noted and some sugg estion of encephalomalacia change in the right frontal and left parietal regions. These findings all appear stable. There is hyperostosis frontalis interna noted. The mastoid air cells and visualized sinuses are clear . IMPRESSION: No acute intracranial abnormalities. POS: [facility]
[2017-04-14 20:56] LABS: CKMB 0.8 ng/mL (0-6.6); Troponin I 0.054 ng/mL (< 0.028)
[2017-04-14] MEDS ORDERED: Naloxone HCl 0.4 mg/ml Vial ONE (21:13)
[2017-04-14] MEDS ORDERED: Acetaminophen 325 MG TAB PO PRN (22:26)
[2017-04-14] MEDS ORDERED: Sodium Chloride 0.9% 1,000 ML IV SCH (22:26)
[2017-04-14 22:44] VITALS: BMI 28.8
[2017-04-15 00:03] LABS: Troponin I 0.073 ng/mL (< 0.028)
[2017-04-15 03:53] LABS: Troponin I 0.055 ng/mL (< 0.028)
[2017-04-15] MEDS ORDERED: Insulin Regular 300 UNITS/3 ML VIAL SC PRN (08:05)
[2017-04-15] MEDS ORDERED: Dextrose 50% Abboject 50 ML SYRINGE IVP PRN (08:05)
[2017-04-15] MEDS ORDERED: Dextrose 5% in Water 1,000 ML IV PRN (08:05)
[2017-04-15] MEDS ORDERED: Acetaminophen 325 MG TAB PO PRN (08:08)
[2017-04-15] MEDS: Sodium Chloride 0.9% 1,000 ML IV SCH ×3 (08:50→21:44)
--- NOTE | 2017-04-15 09:24 | HP ---
DATE OF ADMISSION: 04/14/2017 CHIEF COMPLAINT: Altered mental status with acute kidney injury and UTI. HISTORY OF PRESENT ILLNESS: The patient is a 66-year-old [facility] patient who was note d to have altered mental status on the day of admission. She was brought in for further evaluation w here her vital signs were noted to be normal. She was thought to be more lethargic from the custodial and indeed she was very hard to arouse and only on turning the patient did she say a one word re sponse. Even sternal rub failed to elicit significant response. Patient obviously was unable to con tribute to the history. Evaluation in the ER including brain CT failed to show any significant findi ngs other than too numerous to count WBCs. Dr. Grewal was contacted for the need to possibly observe the patient and after conversation with the emergency room physician, it was felt that this may be po ssibly overmedication. If not, simply a response to the urinary tract infection, i.e., sepsis with n eurological impact. PAST MEDICAL HISTORY: Significant for dementia, diabetes type 2, hyperlipidemia, high cholesterol, a nd hypertension. She has had 3 major strokes in the past about 10 small ones, atrial fibrillation, p ancreatitis, polyneuropathies, supraventricular tachycardia, chronic kidney disease stage 3. Dr. Vogel follows this and recurrent UTIs. It is noted that she has had obstructive sleep apnea in the past. PAST SURGICAL HISTORY: Includes cholecystectomy, cardiac stent placement in 07/2013. PSYCHIATRIC HISTORY: Includes aforementioned dementia along with anxiety and depression. SOCIAL HISTORY: She is a [facility] patient with no smoking, alcohol use, or drug use. FAMILY HISTORY: Noncontributory. ALLERGIES: She has allergies to LISINOPRIL and NAPROXEN. MEDICATIONS: Her list of medications includes metformin 500 mg daily, Lantus 10 units subcu in the m orning and 15 units subcutaneously in the evening, aspirin 81 mg daily, sertraline 50 mg daily, Crest or 10 mg at bedtime, oxybutynin 10 mg daily, Xarelto 20 mg daily, fenofibrate 54 mg daily, metoprolo l tartrate 25 mg b.i.d., and Imdur 60 mg daily. REVIEW OF SYSTEMS: GENERAL: From custodial history, there has been no fever, chills, weight see ges or appetite change generally. HEENT: There has been no notation of visual changes or eye pain. Denies nasal congestion, rhinorrhea, or sore throat. RESPIRATORY: There has been no coughing or sh ortness of breath noted. CARDIOVASCULAR: There has been no chest pain, edema, orthopnea noted. GAS TROINTESTINAL: There has been no notation of vomiting or diarrhea, or pain. GENITOURINARY: There a re no complaints of polyuria, dysuria, blood in urine or stool. SKIN: No new rashes or lesions note d. NEUROLOGIC: Mentation changes while she is here and it is significantly diminished and hard to a rouse. MUSCULOSKELETAL: No tenderness, stiffness, or swelling noted. ENDOCRINE: Endocrine cody, t here have not been any significant changes in her blood sugar. PHYSICAL EXAMINATION: VITAL SIGNS: Blood pressure is 143/81, pulse 59, respirations 18. She is afebrile. O2 sat 94% on r oom air. GENERAL: This is an elderly female who now at this time was arousable and responsive at he r baseline mentation after IV hydration overnight along with antibiotics. HEENT: Normocephalic and atraumatic. Pupils equal, round, and reactive to light with diminished darrius ctivity at 2-3 mm of piece. Arcus senilis bilaterally. TMs, nares are clear. Pharynx is moist. NECK: Supple, trachea midline, no mass, no bruits. CHEST: Clear to auscultation. HEART: Regular rate and rhythm without murmur. BREAST: Deferred. ABDOMEN: Soft and nontender without hepatosplenomegaly. GENITOURINARY: Deferred. EXTREMITIES: Without clubbing, cyanosis, or edema. Unable to test range of motion at this time. SKIN: Without acute rashes or lesions. NEUROLOGIC: Neurologically, patient is now arousable and has returned to her baseline mental status. Cranial nerves are intact. Unable to test gait and cerebellar function at this time. Sensory exam is grossly responsive. LABORATORY DATA AND IMAGING DATA: Thus far, WBC 6.6, hemoglobin 10.3, hematocrit 30.3 with platelets at 216,000. Sodium 145, potassium 3.5, chloride 108, CO2 25, BUN is 34, creatinine 2.63 with GFR ru nning about 18, alkaline phosphatase low at 36. Other liver functions are normal. Cardiac enzymes x 3 are in the indeterminate range. TSH 0.726. Urinalysis shows small blood, large leukocytes with WB Cs too numerous to count. Brain CT as mentioned previously shows no acute intracranial abnormalities . Chest x-ray no acute processes either. ASSESSMENT: 1. Altered mental status likely due to urinary tract infection with systemic/septic response early. 2. Urinary tract infection. 3. Acute kidney injury (the patient has chronic kidney disease, followed by Dr. Vogel and this was slo wly improving from previous hospitalization). 4. Hypertension. 5. Insulin-dependent diabetes. PLAN: So plan is to continue to follow with kidney function. Continue IV antibiotics, serial reeval uation. Since the patient's mental status is already significantly improved, we will await culture r esults for proper medication at discharge. We will also control her blood pressure and monitor sugar s.
[2017-04-15] MEDS: cloNIDine 0.1 MG TAB PO SCH ×2 (09:52→21:22)
[2017-04-15] MEDS: Multivit, Therapeutic 1 TAB PO SCH (09:52)
[2017-04-15] MEDS: cefTRIAXone\\ROCEPHIN 2 GM in Sodium Chloride 0.9% 100 ML IVPB SCH (09:52)
[2017-04-15] MEDS: Rivaroxaban 15 MG TAB PO SCH (17:24)
[2017-04-15] MEDS: cloNIDine 0.1 MG TAB PO PRN (17:24)
[2017-04-15] MEDS: Atorvastatin Calcium 40 MG TAB PO SCH (21:22)
[2017-04-16 06:17] LABS: Hemoglobin 10.1 g/dL (12.0-16.0); Platelet Count 193 thou/uL (130-400)
[2017-04-16 06:31] LABS: Anion Gap 12 mmol/L (10-20); BUN (Urea Nitrogen) 28 mg/dL (9.8-20.1); Calc. Creatinine Clearance 33 mL/min (70-130); Calcium 8.8 mg/dL (7.8-10.44); Carbon Dioxide 27 mmol/L (23-31); Cardiac Risk 7.4 (Less than 4.5); Chloride 111 mmol/L (98-107); Cholesterol 140 mg/dl (< 200 Desired); Estimated GFR-MDRD 23; Glucose 138 mg/dL (80-115); HDL Cholesterol 19 mg/dL (>60 Neg Risk); LDL Cholesterol, Calculated 90 mg/dL; Potassium 3.2 mmol/L (3.5-5.1); Sodium 147 mmol/L (136-145); Triglycerides 156 mg/dL (Less than 150)
[2017-04-16] MEDS: Sodium Chloride 0.9% 1,000 ML IV SCH ×2 (07:15→20:35)
[2017-04-16] MEDS: cefTRIAXone\\ROCEPHIN 2 GM in Sodium Chloride 0.9% 100 ML IVPB SCH (08:10)
[2017-04-16] MEDS: cloNIDine 0.1 MG TAB PO SCH ×2 (08:10→20:00)
[2017-04-16] MEDS: Multivit, Therapeutic 1 TAB PO SCH (08:10)
[2017-04-16] MEDS ORDERED: Potassium Chloride 20 MEQ TAB PO SCH (11:00)
[2017-04-16] MEDS: Potassium Chloride 20 MEQ TAB PO SCH (18:14)
[2017-04-16] MEDS: Rivaroxaban 15 MG TAB PO SCH (18:43)
[2017-04-16] MEDS: Atorvastatin Calcium 40 MG TAB PO SCH (20:01)
[2017-04-17] MEDS: cloNIDine 0.1 MG TAB PO PRN (00:03)
[2017-04-17] MEDS: Sodium Chloride 0.9% 1,000 ML IV SCH (00:03)
[2017-04-17 05:55] LABS: Anion Gap 13 mmol/L (10-20); BUN (Urea Nitrogen) 20 mg/dL (9.8-20.1); Calc. Creatinine Clearance 43 mL/min (70-130); Calcium 9.1 mg/dL (7.8-10.44); Carbon Dioxide 25 mmol/L (23-31); Chloride 109 mmol/L (98-107); Estimated GFR-MDRD 31; Glucose 142 mg/dL (80-115); Sodium 144 mmol/L (136-145)
[2017-04-17] MEDS: Potassium Chloride 20 MEQ TAB PO SCH (08:21)
[2017-04-17] MEDS: Multivit, Therapeutic 1 TAB PO SCH (08:21)
[2017-04-17] MEDS: cloNIDine 0.1 MG TAB PO SCH (08:21)
[2017-04-17] MEDS: cefTRIAXone\\ROCEPHIN 2 GM in Sodium Chloride 0.9% 100 ML IVPB SCH (08:22)
[2017-04-17 11:30] VITALS: BP 162/84; TEMP 97.5
[2017-04-17] MEDS ORDERED: Nitrofurantoin Macrocrystal 50 MG CAP PO SCH (13:00)
== END 2017-04-17 11:30 ==
LOC: ERS 17:13 → 2NO 21:40 → T4-B 22:27
PROVIDERS: ADMIT Specialist; ATTEND Specialist
DX: R41.82 Altered mental status, unspecified (principal); I12.9 Hypertensive chronic kidney disease with stage 1 through stage 4 chronic kidney disease, or unspecified chronic kidney disease; E11.22 Type 2 diabetes mellitus with diabetic chronic kidney disease; N18.3 Chronic kidney disease, stage 3 (moderate); E11.42 Type 2 diabetes mellitus with diabetic polyneuropathy; N17.9 Acute kidney failure, unspecified; N39.0 Urinary tract infection, site not specified; R53.83 Other fatigue; F03.90 Unspecified dementia, unspecified severity, without behavioral disturbance, psychotic disturbance, mood disturbance, and anxiety; E78.5 Hyperlipidemia, unspecified; I48.91 Unspecified atrial fibrillation; E78.00 Pure hypercholesterolemia, unspecified; G47.33 Obstructive sleep apnea (adult) (pediatric); F41.9 Anxiety disorder, unspecified; F32.9 Major depressive disorder, single episode, unspecified; Z86.73 Personal history of transient ischemic attack (TIA), and cerebral infarction without residual deficits; Z87.440 Personal history of urinary (tract) infections; Z90.49 Acquired absence of other specified parts of digestive tract; Z95.5 Presence of coronary angioplasty implant and graft; Z88.6 Allergy status to analgesic agent; Z88.8 Allergy status to other drugs, medicaments and biological substances; Z79.4 Long term (current) use of insulin; Z79.01 Long term (current) use of anticoagulants; Z79.899 Other long term (current) drug therapy
CPT/HCPCS: 51701; 70450; 71045; 80048 ×2; 80061; 82140; 82553; 82565; 82962 ×4; 83605; 83690; 84443; 84484 ×3; 85014; 85018; 85049; 87040; 87077; 87086; 87186; 87804 ×2; 93005; 96361 ×4; 96374; 96375; 96376 ×3; 97139; 97530; 99285; G0378 ×2; G8978; G8979; 36415; 36416; 80053; 81003; 81015; 85025; A4216; A4353; J0696; J2310; J7050

== ENCOUNTER 2019-05-12 14:29 | Inpatient (IN) | payer MEDICARE, MEDICAID ==
[2019-05-12] MEDS ORDERED: cefTRIAXone\\ROCEPHIN 2 GM VIAL ONE (15:13)
[2019-05-12] MEDS ORDERED: Vancomycin 1.5 GRAM/300 ML BAG 1.5 GM in Premix Bag 1 BAG IVPB SCH (15:15)
--- NOTE | 2019-05-12 15:27 | RAD ---
Radiograph left foot 3 views: HISTORY: 68-year-old female with left foot wound FINDINGS: Diffuse soft tissue edema. Atherosclerotic calcification. Diffuse osteopenia. Mild DJD at first MTP a nd first IP. No farida bone destruction identified. No fracture identified IMPRESSION: 1. Diffuse soft tissue edema. 2. Mild osteoarthrosis at first metatarsophalangeal joint and first interphalangeal joint. 3. Diffuse osteopenia.
[2019-05-12 15:30] LABS: #Basophils 0.1 thou/uL (0.0-0.2); #Lymphocytes 1.1 thou/uL (1.20-3.40); #Monocytes 1.2 thou/uL (0.11-0.59); #Neutrophils 14.5 thou/uL (1.40-6.50); %Basophils 0.3 % (0.0-1.0); %Eosinophils 0.1 % (0.0-10.0); %Lymphocytes 6.3 % (21.0-51.0); %Neutrophils 86.3 % (42.0-75.0); Mean Corpuscular HGB CONC 34.2 g/dL (32.0-36.0); Mean Corpuscular Hemoglobin 33.6 pg (27.0-31.0); Mean Corpuscular Volume 98.4 fL (78.0-98.0); Mean Platelet Volume 7.2 fL (7.4-10.4); Platelet Count 332 thou/uL (130-400); RBC Distribution Width 11.2 % (11.5-14.5); Red Blood Cell (RBC) Count 2.38 mill/uL (4.20-5.40); White Blood Cell (WBC) Count 16.7 thou/uL (4.8-10.8)
[2019-05-12 15:53] LABS: ALT (SGPT) Less than 7 U/L (8-55); AST (SGOT) 11 U/L (5-34); Albumin 3.1 g/dL (3.4-4.8); Alkaline Phosphatase 69 U/L (40-110); Anion Gap 14 mmol/L (10-20); BUN (Urea Nitrogen) 36 mg/dL (9.8-20.1); Bilirubin, Total 0.5 mg/dL (0.2-1.2); Calc. Creatinine Clearance 0 mL/min (70-130); Calcium 8.8 mg/dL (7.8-10.44); Carbon Dioxide 24 mmol/L (23-31); Chloride 105 mmol/L (98-107); Estimated GFR-MDRD 23; Globulin 4.4 g/dL (2.4-3.5); Glucose 206 mg/dL (80-115); Potassium 4.9 mmol/L (3.5-5.1); Protein, Total 7.5 g/dL (6.0-8.3); Sodium 138 mmol/L (136-145)
[2019-05-12 16:11] LABS: Bacteria/HPF 4+ HPF (None Seen); Bilirubin Negative (Negative); Blood, Urine Negative (Negative); Clarity Turbid (Clear); Glucose, Urine (Dipstick) Normal (Negative); Leukocyte 500 Leu/uL (Negative); Nitrite Negative (Negative); Protein, Urine (Dipstick) 20 mg/dL (Neg-Trace); Squamous Epithelial None Seen HPF (0-3); Urobilinogen Normal mg/dL (Less than 2); WBC/HPF Greater than 50 HPF (0-3)
[2019-05-12] MEDS ORDERED: Senokot S 8.6-50 MG TAB PO PRN (16:13)
[2019-05-12] MEDS ORDERED: Acetaminophen 325 MG TAB PO PRN (16:13)
[2019-05-12] MEDS ORDERED: Ondansetron ODT 4 MG TAB PO PRN (16:13)
[2019-05-12] MEDS ORDERED: Dextrose 5% in Water 1,000 ML IV PRN (17:00)
[2019-05-12] MEDS ORDERED: Dextrose 50% Abboject 50 ML SYRINGE SLOW IVP PRN (17:00)
[2019-05-12] MEDS ORDERED: Insulin Regular 300 UNITS/3 ML VIAL SC PRN (17:00)
[2019-05-12] MEDS ORDERED: Rivaroxaban 10 MG TAB PO SCH (17:00)
[2019-05-12] MEDS: Potassium Chloride 20 MEQ TAB PO SCH (18:10)
[2019-05-12] MEDS: cefTRIAXone\\ROCEPHIN 1 GM in Sodium Chloride 0.9% 100 ML IVPB SCH (18:10)
[2019-05-12 18:51] VITALS: BMI 24.9
[2019-05-12] MEDS: hydrALAZINE 25 MG TAB PO SCH (21:33)
[2019-05-12] MEDS: Gabapentin 100 MG CAP PO SCH (21:33)
[2019-05-12] MEDS: Metoprolol Tartrate 25 MG TAB PO SCH (21:33)
[2019-05-12] MEDS: cloNIDine 0.1 MG TAB PO SCH (21:33)
[2019-05-12] MEDS: Amiodarone 200 MG TAB PO SCH (21:33)
[2019-05-12] MEDS: Atorvastatin Calcium 40 MG TAB PO SCH (21:33)
--- NOTE | 2019-05-12 22:11 | HP ---
CHIEF COMPLAINT: Right foot pain. HISTORY OF PRESENT ILLNESS: This is a 68-year-old female, longterm resident with multiple medical problems including type 2 diabetes mellitus, dementia, coronary artery disease, chronic AFib, several CVAs in the past, and a chronic left foot wound, presenting with cellulitis as well as dry gangrene of the great toe. It is unclear how long this infection going on. She has elevated white count of 16,000, without bandemia. She has no fever. X-ray showed soft tissue edema. ER initiated workup of blood culture, vancomycin and ceftriaxone. During my exam, patient is having her dinner. She is alert and oriented x1 only. She is not able to give much information. I have called the orthopedic physician, Dr. George, updated for a nonemergent visitation from him probably tomorrow morning for possible surgical debridement versus a great toe amputation. REVIEW OF SYSTEMS: Not obtainable. ALLERGIES: SHE IS ALLERGIC TO LISINOPRIL AND NAPROSYN. SOCIAL HISTORY: Patient is currently residing at the longterm. She is at [facility]. No documentation of smoking or alcohol use. PAST MEDICAL HISTORY: 1. Dementia, type 2 diabetes mellitus, hypertension, and hyperlipidemia. She had a history of three major strokes and several TIAs. 2. Atrial fibrillation. 3. History of SVT. 4. Chronic kidney disease, stage 3. 5. Polyneuropathy. MEDICATIONS: Not updated yet. However, review showed that she is on: 1. Metformin 500 mg twice a day. 2. Hydralazine 50 mg three times a day. 3. Clonidine 0.1 mg twice a day. 4. Xarelto 20 mg daily. 5. Potassium chloride 20 mEq twice a day. 6. Oxybutynin 15 mg daily. 7. Nitrofurantoin 50 mg four times a day. 8. Multivitamin. 9. Lopressor 25 mg twice a day. 10. (Detemir) Levemir 10 units at bedtime and 16 units in a.m. 11. Gabapentin 100 mg at bedtime. 12. Fenofibrate 145 mg daily. 13. Fluoxetine 20 mg daily. 14. Donepezil 23 mg daily. 15. Lipitor 40 mg at bedtime. 16. Norvasc 10 mg daily. 17. Amiodarone 200 mg twice a day. 18. Aggrenox one tablet twice a day. PHYSICAL EXAMINATION: GENERAL: She is afebrile, normotensive, alert, oriented x1. She appears nontoxic. EXTREMITIES: Right foot has significant cellulitis most of the dorsal aspect of the foot. There are some necrotic tissues, more prominent is great toe showing gangrenous ulcer on the medial aspect as well as ventral aspect of the toe. The skin is very warm to the touch. Swelling and erythema surrounding area. HEENT: Pupils equal, round, and reactive to light. Dry mucous membranes. CARDIOVASCULAR: Regular rate and rhythm without murmurs, rubs, or gallops. LUNGS: Clear to auscultation bilaterally without wheezing, rales, or rhonchi. ABDOMEN: Soft, nontender, and nondistended. Good bowel sounds. EXTREMITIES: As mentioned above. NEUROLOGIC: No focal deficits. LABORATORY DATA: Labs white count is 16.7, hemoglobin 8, and platelet is 332, 000. Chemistry panel; creatinine 2.14, BUN is 36. CMP panel in the normal range. UA showed leukocyte esterase and wbc is 50. Urine is very cloudy. IMAGING: Her foot x-ray showed soft tissue edema, mild osteoarthritis at first metatarsophalangeal joint and diffuse osteopenia. IMPRESSION AND PLAN: This is a 68-year-old female, longterm resident, presenting with the followin. Chronic left foot wound. 2. Cellulitis superimposed on the preexisting wound. 3. Dry gangrenous left great toe. 4. Cellulitis and gangrenous toe without sign of sepsis. 5. Blood cultures will be followed. Continue the vancomycin and ceftriaxone. Pharmacy consulted to dose the vanc as well as to get the trough level and titrate the dose accordingly to keep the trough between 15 and 20. I have consulted ID , Dr. Win. I talked to orthopedic physician, Dr. George, probably, he will visit tomorrow as this is a nonemergent case. 6. Type 2 diabetes mellitus. Hold her metformin and continue with her long- acting insulin along with sliding scale insulin and diabetic diet. 7. Coronary artery disease. We will continue with her home regimen including Lopressor and Lipitor. 8. History of cerebrovascular accidents. on Aggrenox as well as Xarelto. 9. We will hold the Xarelto as well as Aggrenox as the patient may be going for a debridement versus great toe amputation tomorrow. We will keep her n.p.o. tonight. 10. Other chronic medical conditions will be followed closely. 11. Deep venous thrombosis prophylaxis. SCDs only for now as possible surgical intervention tomorrow. Job ID: [id number] LEON
[2019-05-13 05:36] LABS: #Eosinphils 0.1 thou/uL (0.0-0.7); #Lymphocytes 0.9 thou/uL (1.20-3.40); #Monocytes 0.8 thou/uL (0.11-0.59); #Neutrophils 7.6 thou/uL (1.40-6.50); %Basophils 0.4 % (0.0-1.0); %Eosinophils 0.7 % (0.0-10.0); %Lymphocytes 9.2 % (21.0-51.0); %Monocytes 8.1 % (0.0-10.0); %Neutrophils 81.7 % (42.0-75.0); Hemoglobin 9.5 g/dL (12.0-16.0); Mean Corpuscular HGB CONC 34.1 g/dL (32.0-36.0); Mean Corpuscular Hemoglobin 33.7 pg (27.0-31.0); Mean Corpuscular Volume 98.6 fL (78.0-98.0); Mean Platelet Volume 6.7 fL (7.4-10.4); Platelet Count 230 thou/uL (130-400); RBC Distribution Width 11.1 % (11.5-14.5); Red Blood Cell (RBC) Count 2.82 mill/uL (4.20-5.40); White Blood Cell (WBC) Count 9.4 thou/uL (4.8-10.8)
[2019-05-13 05:52] LABS: ALT (SGPT) 7 U/L (8-55); AST (SGOT) 14 U/L (5-34); Albumin 2.7 g/dL (3.4-4.8); Alkaline Phosphatase 58 U/L (40-110); Anion Gap 11 mmol/L (10-20); BUN (Urea Nitrogen) 41 mg/dL (9.8-20.1); Bilirubin, Total 0.2 mg/dL (0.2-1.2); Calc. Creatinine Clearance 24 mL/min (70-130); Calcium 8.1 mg/dL (7.8-10.44); Carbon Dioxide 25 mmol/L (23-31); Chloride 107 mmol/L (98-107); Estimated GFR-MDRD 20; Globulin 3.9 g/dL (2.4-3.5); Glucose 160 mg/dL (80-115); Potassium 4.2 mmol/L (3.5-5.1); Protein, Total 6.6 g/dL (6.0-8.3); Sodium 139 mmol/L (136-145)
[2019-05-13] MEDS: Amlodipine 10 MG TAB PO SCH (08:33)
[2019-05-13] MEDS: Amiodarone 200 MG TAB PO SCH ×2 (08:33→20:39)
[2019-05-13] MEDS: Potassium Chloride 20 MEQ TAB PO SCH ×2 (08:33→16:54)
[2019-05-13] MEDS: Fenofibrate Nanocrystallized 145 MG TAB PO SCH (08:34)
[2019-05-13] MEDS: cloNIDine 0.1 MG TAB PO SCH ×2 (08:34→20:39)
[2019-05-13] MEDS: hydrALAZINE 25 MG TAB PO SCH ×3 (08:34→20:39)
[2019-05-13] MEDS: Metoprolol Tartrate 25 MG TAB PO SCH ×2 (08:35→20:40)
[2019-05-13] MEDS: Multivitamin W/ Minerals 1 TAB PO SCH (08:35)
[2019-05-13] MEDS: Insulin Glargine 16 UNITS in Pre-Filled Syringe 1 EACH SC SCH (08:37)
[2019-05-13] MEDS: Oxybutynin ER 5 MG TAB PO SCH (08:38)
[2019-05-13] MEDS: FLUoxetine HCl 20 MG CAP PO SCH (08:38)
[2019-05-13] MEDS ORDERED: Non-Formulary Item 1 EACH (Insulin Detemir 100 Units/Ml [Levemir] 16 UNITS) SC SCH (09:00)
[2019-05-13] MEDS ORDERED: FLU VACC TS2019-20(65YR UP)/PF 180 MCG/0.5 ML SYRINGE IM ONE (09:00)
[2019-05-13] MEDS ORDERED: DONEPEZIL HCL 23 MG PO SCH ×2 (09:00)
[2019-05-13] MEDS ORDERED: Vancomycin 1 GM in Premix Bag 1 BAG IVPB SCH ×2 (09:00→18:15)
[2019-05-13] MEDS ORDERED: Prevnar 13-Val Conj/PF 0.5 ML SYRINGE IM ONE (09:00)
--- NOTE | 2019-05-13 14:15 | PDOC.HOSPP ---
- Subjective Encounter Date: 05/13/19 Encounter Time: 11:50 Subjective: pt states not much pain; more communicative this am than y'day, says that she has grand kids. wound in dressing. E.coli UTI - Objective Vital Signs & Weight: Vital Signs (12 hours) Temp Pulse Resp BP Pulse Ox 05/13/19 11:27 97.9 F 63 18 115/61 95 05/13/19 08:34 55 L 05/13/19 08:33 55 L 05/13/19 08:30 55 L 16 103/59 L 95 05/13/19 07:25 98.1 F 54 L 16 103/64 96 05/13/19 04:38 98.4 F 66 18 100/61 94 L Weight Weight 149 lb 14.629 oz I&O: 05/12/19 05/13/19 05/14/19 06:59 06:59 06:59 Intake Total 810 Balance 810 Result Diagrams: 05/13/19 05:11 05/13/19 05:11 Additional Labs: Accuchecks 05/13/19 05/13/19 05/12/19 11:33 04:45 20:53 POC Glucose 117 H 170 H 174 H Hospitalist ROS - Medication Medications: Active Medications Generic Name Dose Route Start Last Admin Trade Name Freq PRN Reason Stop Dose Admin Acetaminophen 650 mg 05/12/19 16:13 05/12/19 21:39 Tylenol PO 650 mg Q4H PRN Administration Headache/Fever/Mild Pain (1-3) Amiodarone HCl 200 mg 05/12/19 21:00 05/13/19 08:33 Cordarone PO Not Given BID YARELIS Amlodipine Besylate 10 mg 05/13/19 09:00 05/13/19 08:33 Norvasc PO Not Given DAILY YARELIS Atorvastatin Calcium 40 mg 05/12/19 21:00 05/12/19 21:33 Lipitor PO 40 mg HS YARELIS Administration Clonidine 0.1 mg 05/12/19 21:00 05/13/19 08:34 Catapres PO Not Given BID YARELIS Fenofibrate 145 mg 05/13/19 09:00 05/13/19 08:34 Tricor PO Not Given DAILY YARELIS Fluoxetine HCl 20 mg 05/13/19 09:00 05/13/19 08:38 Prozac PO 20 mg DAILY YARELIS Administration Gabapentin 100 mg 05/12/19 21:00 05/12/19 21:33 Neurontin PO 100 mg HS YARELIS Administration Hydralazine HCl 50 mg 05/12/19 21:00 05/13/19 08:34 Apresoline PO Not Given TID [facility] Insulin Glargine 16 units/ 0.16 mls @ 0 mls/hr 05/13/19 09:00 05/13/19 08:37 Miscellaneous Medication SC Not Given QAM [facility] Ceftriaxone Sodium 1 gm/ 100 mls @ 200 mls/hr 05/12/19 17:00 05/12/19 18:10 Sodium Chloride IVPB 100 mls Q24HR YARELIS Administration Insulin Human Regular 0 units 05/12/19 17:00 05/13/19 05:26 Humulin R SC 2 unit .MODERATE SLIDING SC PRN Administration Moderate Correctional Scale Iron/Minerals/Multivitamins 1 tab 05/13/19 09:00 05/13/19 08:35 Theragran M PO Not Given DAILY [facility] Metoprolol Tartrate 25 mg 05/12/19 21:00 05/13/19 08:35 Lopressor PO Not Given BID [facility] Oxybutynin Chloride 15 mg 05/13/19 09:00 05/13/19 08:38 Ditropan Xl PO 15 mg DAILY [facility] Administration Potassium Chloride 20 meq 05/12/19 17:00 05/13/19 08:33 K-Dur PO Not Given BID-[facility] Rivaroxaban 20 mg 05/12/19 17:00 05/12/19 18:10 Xarelto PO Not Given 1700 [facility] - Exam General Appearance: NAD Eye: PERRL ENT: normocephalic atraumatic Neck: supple Heart: RRR Respiratory: CTAB Gastrointestinal: soft, normal bowel sounds Neurological: cranial nerve grossly intact, no focal deficits Hosp A/P - Plan Left toe gangrene Cellultiis of left foot chronic woound w.. necrosis Nonhealing wound on left foot --pending sux and ID consult bl anya no growth -vanc + CTX [based on antibiogram] CKD 3/4 DM2 -hold metformina dn cw insulin + SSI CAD - CVA - holding xarleto -on amio, BB, fenofibrate, lipitor DVT ppx - scds - no xarleto as sux intervention pending.
[2019-05-13 17:33] LABS: Vancomycin, Random 11.5 ug/mL (See Comment)
[2019-05-13] MEDS: cefTRIAXone\\ROCEPHIN 1 GM in Sodium Chloride 0.9% 100 ML IVPB SCH (17:46)
[2019-05-13] MEDS ORDERED: Vancomycin HCl 750 MG in Sodium Chloride 0.9% 250 ML 250 ML IVPB SCH (18:00)
--- NOTE | 2019-05-13 18:56 | ULT ---
Left lower extremity arterial Doppler ultrasound: 05/13/2019 COMPARISON: None HISTORY: Acute on chronic left foot ischemia TECHNIQUE: Multiplanar grayscale sonographic imaging of the arterial structures of the left lower ext remity obtained with color flow and spectral analysis FINDINGS: The left common femoral artery is patent and demonstrates an abnormal biphasic-monophasic w aveform. There is an abnormal monophasic waveform within the left profunda femoral artery. The left superficial femoral artery is patent and demonstrates an abnormal monophasic waveform throughout. The re is an abnormal monophasic waveform within the left popliteal artery, anterior tibial artery, and dorsalis pedis artery. There is minimal blood flow within the left posterior tibial artery with an ab normal monophasic waveform. Peak systolic velocity (centimeters per second) is 116 within the left [employer], 77 within the left profun da femoral artery, 57-69 within the left superficial femoral artery, 114 within the left popliteal artery, 105 within the left anterior tibial artery, approximately 10 within the left posterior tibial artery, and approximately 89 within the left dorsalis pedis artery. IMPRESSION: Arterial structures of the left lower extremity are patent. Abnormal monophasic waveforms are noted with significant runoff vessel disease, most prominently involving the left posterior tibial artery. Recommend further assessment via CT angiogram using a runoff protocol.
--- NOTE | 2019-05-13 19:04 | CON ---
DATE OF CONSULTATION: HISTORY OF PRESENT ILLNESS: Sulema Sorenson is a 68-year-old female, who lives in assisted care facility. She is admitted from the emergency room on 05/12/2019, for left foot wound. X-rays reveal osteopenia without distinct osteomyelitis. She has blistering of her great toe, left foot, and some ecchymosis. Wound Care has placed dressing. At the bedside, I removed the blisters draining purulent material. She has some excoriations medial and lateral with no deep sinuses. She has a callus at the tip of the great toe and this was removed, but there is no communication of the bone. She does not have palpable pedal pulses. I cannot appreciate a left popliteal pulse. She has a weakened femoral pulse. MEDICATIONS: 1. Fluoxetine. 2. Donepezil. 3. Lipitor. 4. Aggrenox. 5. Norvasc. 6. Cordarone. 7. Apresoline. 8. Xarelto. 9. K-Dur. 10. Ditropan. 11. Nitrofurantoin. 12. Multivitamins. 13. Lopressor. 14. Gabapentin. 15. Metformin. In the hospital, she has been started on ceftriaxone and vancomycin. Xarelto has been held. Blood cultures negative to date. Urine culture, E coli greater than 10 to 5th. The patient is a full code. SOCIAL HISTORY: Tobacco none, alcohol none as far as I can tell. PAST MEDICAL HISTORY: Diabetes mellitus type 2, hypertension, hyperlipidemia, atrial fibrillation, history of SVT, chronic kidney disease, polyneuropathy. PAST SURGICAL HISTORY: Not documented. PHYSICAL EXAMINATION: VITAL SIGNS: Height 5 feet 5 inches, 149 pounds. GENERAL: Patient converses but is not oriented. VITAL SIGNS: 98.4, 73, 119/54. LUNGS: Clear to auscultation. CARDIAC: Regular rhythm without murmur or gallop. ABDOMEN: Soft and nontender. VASCULAR: Palpable femoral pulses but weak, nonpalpable popliteal pulses appreciated. I cannot palpate pedal pulses. Foot changes as documented, blister removal is noted bedside. ASSESSMENT/PLAN: Foot infection, Strep. I do not think further surgical debridement is warranted at this time. I would treat with antibiotics and observe this. I expect a Streptococcus type infection. This should respond to antibiotics and hopefully, further surgical debridement will not be necessary. Job ID: [id number]
--- NOTE | 2019-05-13 19:48 | CON ---
DATE OF CONSULTATION: REASON FOR CONSULT: Area of acute and chronic ischemia, left foot. HISTORY OF PRESENT ILLNESS: A 68-year-old with history of atrial fibrillation with multiple CVAs, vascular dementia, hypertension, coronary artery disease, and type 2 diabetes, who was admitted with acute on chronic ischemia of the left foot. On arrival, she was oriented times self and place and had the necrotic changes in the left first toe and the changes in the forefoot dorsal aspect as noted below. There was marked tenderness associated with these changes. The initial findings included a white cell count 16.7, hemoglobin 8, and platelets 332. Creatinine 2.42 with a baseline of 0.78 in March 2017. Imaging study of the foot showed osteopenia, soft tissue edema, mild osteoarthrosis. The patient was given ceftriaxone and vancomycin. Currently, she is awake. She has quite significant dysarthria, but she establishes eye contact and is able to answer questions and follows commands. She knew she was in the [facility], but not the date. No headaches, visual symptoms, sore throat, odynophagia, or dysphagia. No dyspnea, cough, sputum production, or chest pain. No abdominal pain or diarrhea. No genitourinary symptoms. She has marked pain in the left foot. PAST MEDICAL HISTORY: Type 2 diabetes, atrial fibrillation, multiple CVAs, vascular dementia, CKD stage 3, polyneuropathy, and likely peripheral vascular disease, peripheral vascular disease has not been diagnosed. ALLERGIES: LISINOPRIL AND NAPROSYN. SOCIAL HISTORY: [place], [place]. One of her family members, her daughter lives in town. Never smoker. No alcoholic beverage use. CURRENT MEDICATIONS: In addition to the ceftriaxone and vancomycin, she is on: 1. TriCor. 2. Catapres. 3. Lipitor. 4. Norvasc. 5. Cordarone. 6. Insulin. 7. Zofran. 8. Ditropan. 9. Xarelto. 10. Ultram. PHYSICAL EXAMINATION: VITAL SIGNS: T-max 98.7, blood pressure 119/54, pulse 73, respirations 18, and O2 saturation 91% to 95%. SKIN: Shows the findings in the left foot with necrosis of the tip of the hallux and purpuric erythema extending towards the midfoot region across the base of the toes 1 through fifth. There is marked tenderness associated with these changes. No blistering is noted. There is a small area of ulceration at the lateral aspect of the left heel. A few areas of excoriation noted in the proximal anterior aspect of the right leg. She has a peripheral IV access. Mild erythema in the presacral and gluteal region, particularly the left side. HEENT: Ocular movements are conjugate. Sclerae white. Oral cavity with no quinault teeth remaining in place. NECK: Supple. No jugular vein distention. LUNGS: Symmetric clear breath sounds. HEART: S1 and S2. Regular rate. No S3 or S4. ABDOMEN: Soft, not distended or tender. No ascites. No bladder distention. She has a Wick catheter in her perineal area. EXTREMITIES: No joint inflammatory activity noted. Popliteal pulses are weak, almost 1+. I could not feel dorsalis pedis or posterior tibialis pulses. Cap refill was around 3 seconds. She was able to move extremities on command. Plantar responses are flexor. NEUROLOGIC: She has quite a bit of dysarthria and difficulty with word-finding. Her recollection of events was quite limited and she could not give a full account of her symptoms progress. LABORATORY DATA: The latest labs; white cell count 9.4, hemoglobin 9.5, and platelets 230 with 81% neutrophils. Sodium 139 and creatinine 2.42. Liver profile normal. Albumin 2.7. Urinalysis greater than 50 wbc's. Microbiology with E. coli in urine culture, greater than 100,000 CFUs. ASSESSMENT: Type 2 diabetes, peripheral vascular disease, atrial fibrillation, gangrene of the left first toe with extension of purpuric skin changes towards the midfoot region, dorsal aspect associated with neutrophilia with a left shift. DISCUSSION: The patient has probably chronic peripheral vascular disease that had not been yet identified. This is associated now with gangrenous changes. She has probably an aggressive infection penetrating through the left foot, is at risk for amputation. We will need to assess her vascular status to see if she would be amenable to revascularization. In this case, the problem would be the creatinine, which would place her at risk for end-stage renal disease and dialysis dependency. We will change her antimicrobial therapy to cefepime and Flagyl. Continue vancomycin. She will be at risk for higher levels of amputation if she is not eligible for revascularization procedure. Evaluate arterial duplex US. Job ID: [id number] [facility]
[2019-05-13] MEDS: Atorvastatin Calcium 40 MG TAB PO SCH (20:39)
[2019-05-13] MEDS: Gabapentin 100 MG CAP PO SCH (20:39)
[2019-05-13] MEDS ORDERED: metroNIDAZOLE 250 MG TAB PO SCH (21:00)
[2019-05-13] MEDS ORDERED: hydrALAZINE 20 MG/ML VIAL SLOW IVP PRN (21:20)
[2019-05-13] MEDS ORDERED: cloNIDine 0.1mg/24 Hour PATCH TD SCH (22:00)
[2019-05-13] MEDS: D5 1/2 NS w/10 mEq KCl 1,000 ML/1,000 ML BAG IV SCH (22:49)
[2019-05-13] MEDS: metroNIDAZOLE 250 MG in Admixture Fee 2 EACH IVPB SCH (22:49)
[2019-05-14] MEDS: Labetalol HCl 100 MG/20 ML VIAL SLOW IVP SCH ×4 (00:06→17:37)
[2019-05-14] MEDS ORDERED: Gabapentin 100 MG CAP PO SCH (02:15)
[2019-05-14] MEDS ORDERED: Fentanyl 100 MCG/2 ML VIAL SLOW IVP SCH (02:30)
[2019-05-14 05:22] LABS: #Eosinphils 0.1 thou/uL (0.0-0.7); #Monocytes 0.5 thou/uL (0.11-0.59); #Neutrophils 5.9 thou/uL (1.40-6.50); %Basophils 0.1 % (0.0-1.0); %Lymphocytes 13.3 % (21.0-51.0); %Monocytes 7.1 % (0.0-10.0); %Neutrophils 78.5 % (42.0-75.0); Hemoglobin 9.1 g/dL (12.0-16.0); Mean Corpuscular HGB CONC 32.1 g/dL (32.0-36.0); Mean Corpuscular Hemoglobin 31.7 pg (27.0-31.0); Mean Corpuscular Volume 98.9 fL (78.0-98.0); Platelet Count 239 thou/uL (130-400); RBC Distribution Width 11.1 % (11.5-14.5); Red Blood Cell (RBC) Count 2.86 mill/uL (4.20-5.40); White Blood Cell (WBC) Count 7.5 thou/uL (4.8-10.8)
[2019-05-14] MEDS: metroNIDAZOLE 250 MG in Admixture Fee 2 EACH IVPB SCH ×3 (05:50→22:54)
[2019-05-14] MEDS: Amlodipine 10 MG TAB PO SCH (07:26)
[2019-05-14] MEDS: Potassium Chloride 20 MEQ TAB PO SCH ×2 (07:26→11:48)
[2019-05-14] MEDS: Amiodarone 200 MG TAB PO SCH ×2 (07:26→20:54)
[2019-05-14] MEDS: Insulin Glargine 16 UNITS in Pre-Filled Syringe 1 EACH SC SCH (07:27)
[2019-05-14] MEDS: Oxybutynin ER 5 MG TAB PO SCH (07:27)
[2019-05-14] MEDS: FLUoxetine HCl 20 MG CAP PO SCH (07:27)
[2019-05-14] MEDS: Fenofibrate Nanocrystallized 145 MG TAB PO SCH (07:27)
[2019-05-14] MEDS: Multivitamin W/ Minerals 1 TAB PO SCH (07:27)
[2019-05-14] MEDS: Cefepime 1 GM in Sodium Chloride 0.9% 100 ML IVPB SCH ×2 (09:10→20:53)
[2019-05-14] MEDS ORDERED: Morphine 2 MG/ML SYRINGE SLOW IVP PRN (10:53)
--- NOTE | 2019-05-14 11:01 | PRG ---
DATE OF SERVICE: 05/14/2019 Sulema Sorenson is doing well today. Left great toe looks better. Ecchymosis about her foot is better. There is some slough over the open wounds medial and lateral great toe, but overall is doing well. At this point, I would recommend washing the foot with soap and water in the bath or shower daily and place an antibiotic ointment and Band-Aid or nonstick dressings. I would see her in my office in 2 to 3 weeks. I would not recommend surgical intervention at this time. Job ID: [id number]
--- NOTE | 2019-05-14 14:22 | RAD ---
Modified barium swallow HISTORY: Dysphagia. Difficulty swallowing. FINDINGS: Exam was performed in conjunction with speech pathology with multiple consistencies. Video review is available and demonstrates poor oral control and initiation of swallowing. Early spill of contrast with the thinner consistencies. Aspiration and spontaneous coughing with the thin liquids. L ess severe penetration with neck flexed. Mild to moderate penetration with the barium puree. Small amount of pooling within the valleculae and piriform sinuses. The esophagus below the level of the hypopharynx was not evaluated. Please see separate detailed repo rt from speech pathology.
--- NOTE | 2019-05-14 16:28 | PDOC.HOSPP ---
- Subjective Encounter Date: 05/14/19 Encounter Time: 11:50 Subjective: she appears ok, demented and asking the same q like yesterday, arterial dopploer showed PVD. erythema looks improved on her foot. - Objective Vital Signs & Weight: Vital Signs (12 hours) Temp Pulse Resp BP Pulse Ox 05/14/19 12:18 75 05/14/19 11:11 98.8 F 75 18 132/76 97 05/14/19 07:30 98.6 F 69 18 124/76 95 05/14/19 07:26 65 Weight Admit Weight 149 lb 14.629 oz Weight 149 lb 14.629 oz I&O: 05/13/19 05/14/19 05/15/19 06:59 06:59 06:59 Intake Total 810 600 Balance 810 600 Result Diagrams: 05/14/19 05:01 05/13/19 05:11 Additional Labs: Accuchecks 05/14/19 05/14/19 05/14/19 11:17 04:15 01:49 POC Glucose 104 104 100 05/13/19 05/13/19 20:14 16:36 POC Glucose 101 112 H Hospitalist ROS - Medication Medications: Active Medications Generic Name Dose Route Start Last Admin Trade Name Freq PRN Reason Stop Dose Admin Acetaminophen 650 mg 05/12/19 16:13 05/12/19 21:39 Tylenol PO 650 mg Q4H PRN Administration Headache/Fever/Mild Pain (1-3) Amiodarone HCl 200 mg 05/12/19 21:00 05/14/19 07:26 Cordarone PO Not Given BID [facility] Amlodipine Besylate 10 mg 05/13/19 09:00 05/14/19 07:26 Norvasc PO Not Given DAILY [facility] Atorvastatin Calcium 40 mg 05/12/19 21:00 05/13/19 20:39 Lipitor PO Not Given HS YARELIS Clonidine 0.1 mg 05/13/19 22:00 05/13/19 22:48 Otfiwxib-Mue-8 Patch TD 0.1 mg Q7D YARELIS Administration Fenofibrate 145 mg 05/13/19 09:00 05/14/19 07:27 Tricor PO Not Given DAILY [facility] Fluoxetine HCl 20 mg 05/13/19 09:00 05/14/19 07:27 Prozac PO Not Given DAILY [facility] Gabapentin 100 mg 05/12/19 21:00 05/13/19 20:39 Neurontin PO Not Given HS YARELIS Insulin Glargine 16 units/ 0.16 mls @ 0 mls/hr 05/13/19 09:00 05/14/19 07:27 Miscellaneous Medication SC Not Given QAM YARELIS Dextrose/Water 1,000 mls @ 0 mls/hr 05/12/19 17:00 05/13/19 17:46 D5w IV 1,000 mls .Q0M PRN Administration Hypoglycemia As Directed Potassium Chloride/Dextrose/Sod Cl 1,000 ml in 1,000 mls @ 50 mls/hr 05/13/19 21:15 05/13/19 22:49 D5 1/2 Ns W/10 Meq Kcl IV 1,000 mls .Q20H YARELIS Administration Metronidazole 250 mg/ 50 mls @ 100 mls/hr 05/13/19 22:00 05/14/19 14:59 Miscellaneous Medication IVPB 50 mls Q8HR YARELIS Administration Cefepime HCl 1 gm/ Sodium 100 mls @ 200 mls/hr 05/14/19 09:00 05/14/19 09:10 Chloride IVPB 100 mls Q12HR YARELIS Administration Insulin Human Regular 0 units 05/12/19 17:00 05/13/19 05:26 Humulin R SC 2 unit .MODERATE SLIDING SC PRN Administration Moderate Correctional Scale Iron/Minerals/Multivitamins 1 tab 05/13/19 09:00 05/14/19 07:27 Theragran M PO Not Given DAILY [facility] Labetalol HCl 10 mg 05/13/19 23:59 05/14/19 12:18 Normodyne SLOW IVP Not Given Q6HR [facility] Morphine Sulfate 2 mg 05/14/19 10:53 05/14/19 12:15 Morphine SLOW IVP 2 mg Q8H PRN Administration Pain Oxybutynin Chloride 15 mg 05/13/19 09:00 05/14/19 07:27 Ditropan Xl PO Not Given DAILY [facility] Potassium Chloride 20 meq 05/12/19 17:00 05/14/19 11:48 K-Dur PO Not Given BID-WM YARELIS - Exam General Appearance: NAD, awake alert Eye: PERRL ENT: normocephalic atraumatic Neck: supple Heart: RRR Respiratory: CTAB Gastrointestinal: normal bowel sounds Neurological: cranial nerve grossly intact Musculoskeletal - other findings: erythema improved--toe still looks the same - gangrenous Hosp A/P - Plan Left toe gangrene Cellultiis of left foot chronic woound w.. necrosis Nonhealing wound on left foot --No sux bl anya no growth -vanc + cefepime and flagyl CKD 3/4 DM2 -hold metformina dn cw insulin + SSI CAD - CVA PAD s/p arterial doppler -- left post tibialis A sternosis - hold. -on amio, BB, fenofibrate, lipitor DVT ppx - scds - restarted w.. renal dose at 15mg po daily.
[2019-05-14] MEDS: D5 1/2 NS w/10 mEq KCl 1,000 ML/1,000 ML BAG IV SCH (17:37)
[2019-05-14] MEDS: traMADol HCl 50 MG TAB PO PRN (17:37)
[2019-05-14 18:00] LABS: Vancomycin, Random 16.3 ug/mL (See Comment)
[2019-05-14] MEDS ORDERED: Vancomycin HCl 750 MG in Sodium Chloride 0.9% 250 ML 250 ML IVPB SCH (18:15)
[2019-05-14] MEDS: Gabapentin 100 MG CAP PO SCH (20:54)
[2019-05-14] MEDS: Atorvastatin Calcium 40 MG TAB PO SCH (20:54)
[2019-05-15] MEDS: Labetalol HCl 100 MG/20 ML VIAL SLOW IVP SCH ×4 (00:38→17:30)
[2019-05-15] MEDS: metroNIDAZOLE 250 MG in Admixture Fee 2 EACH IVPB SCH ×3 (05:47→22:26)
[2019-05-15 06:09] LABS: #Eosinphils 0.1 thou/uL (0.0-0.7); #Lymphocytes 1.1 thou/uL (1.20-3.40); #Monocytes 0.5 thou/uL (0.11-0.59); #Neutrophils 4.6 thou/uL (1.40-6.50); %Basophils 0.3 % (0.0-1.0); %Eosinophils 1.9 % (0.0-10.0); %Lymphocytes 17.5 % (21.0-51.0); %Monocytes 7.5 % (0.0-10.0); %Neutrophils 72.9 % (42.0-75.0); Hemoglobin 9.6 g/dL (12.0-16.0); Mean Corpuscular HGB CONC 32.8 g/dL (32.0-36.0); Mean Corpuscular Hemoglobin 32.5 pg (27.0-31.0); Mean Platelet Volume 6.8 fL (7.4-10.4); Platelet Count 234 thou/uL (130-400); Red Blood Cell (RBC) Count 2.94 mill/uL (4.20-5.40); White Blood Cell (WBC) Count 6.3 thou/uL (4.8-10.8)
[2019-05-15 06:23] LABS: Anion Gap 10 mmol/L (10-20); BUN (Urea Nitrogen) 25 mg/dL (9.8-20.1); Calc. Creatinine Clearance 51 mL/min (70-130); Calcium 8.2 mg/dL (7.8-10.44); Carbon Dioxide 24 mmol/L (23-31); Chloride 108 mmol/L (98-107); Estimated GFR-MDRD 48; Glucose 87 mg/dL (80-115); Potassium 3.9 mmol/L (3.5-5.1); Sodium 138 mmol/L (136-145)
[2019-05-15] MEDS: Oxybutynin ER 5 MG TAB PO SCH (08:23)
[2019-05-15] MEDS: Amlodipine 10 MG TAB PO SCH (08:24)
[2019-05-15] MEDS: Potassium Chloride 20 MEQ TAB PO SCH ×2 (08:24→17:30)
[2019-05-15] MEDS: Fenofibrate Nanocrystallized 145 MG TAB PO SCH (08:24)
[2019-05-15] MEDS: Multivitamin W/ Minerals 1 TAB PO SCH (08:24)
[2019-05-15] MEDS: FLUoxetine HCl 20 MG CAP PO SCH (08:24)
[2019-05-15] MEDS: Amiodarone 200 MG TAB PO SCH ×2 (08:24→20:51)
[2019-05-15] MEDS: Cefepime 1 GM in Sodium Chloride 0.9% 100 ML IVPB SCH ×2 (08:25→20:51)
[2019-05-15] MEDS: Insulin Glargine 16 UNITS in Pre-Filled Syringe 1 EACH SC SCH (08:25)
[2019-05-15] MEDS: Rivaroxaban 15 MG TAB PO SCH (08:27)
[2019-05-15] MEDS: traMADol HCl 50 MG TAB PO PRN (08:36)
[2019-05-15 09:44] LABS: Anion Gap 14 mmol/L (10-20); BUN (Urea Nitrogen) 25 mg/dL (9.8-20.1); Calc. Creatinine Clearance 51 mL/min (70-130); Calcium 8.1 mg/dL (7.8-10.44); Carbon Dioxide 17 mmol/L (23-31); Chloride 110 mmol/L (98-107); Estimated GFR-MDRD 48; Glucose 95 mg/dL (80-115); Sodium 137 mmol/L (136-145)
[2019-05-15] MEDS: D5 1/2 NS w/10 mEq KCl 1,000 ML/1,000 ML BAG IV SCH (12:54)
--- NOTE | 2019-05-15 13:13 | PDOC.HOSPP ---
- Subjective Encounter Date: 05/15/19 Encounter Time: 10:50 Subjective: [place], no acute events; Ecoli UTI resistant to FQ and cephalosporins, sens to macrobid. sux s/o. - Objective Vital Signs & Weight: Vital Signs (12 hours) Temp Pulse Resp BP BP Pulse Ox 05/15/19 12:03 71 146/65 H 05/15/19 11:38 98.2 F 71 20 146/65 H 97 05/15/19 08:45 94 L 05/15/19 08:24 61 137/75 05/15/19 07:22 97.8 F 61 18 137/75 94 L 05/15/19 05:46 59 L 143/80 H 05/15/19 04:00 98.1 F 67 18 143/80 H 97 Weight Admit Weight 149 lb 14.629 oz Weight 149 lb 14.629 oz I&O: 05/14/19 05/15/19 05/16/19 06:59 06:59 06:59 Intake Total 600 236 Balance 600 236 Result Diagrams: 05/15/19 05:47 05/15/19 09:11 Additional Labs: Accuchecks 05/15/19 05/15/19 05/15/19 11:22 04:49 00:45 POC Glucose 142 H 99 98 05/14/19 05/14/19 20:00 17:00 POC Glucose 106 109 Hospitalist ROS - Medication Medications: Active Medications Generic Name Dose Route Start Last Admin Trade Name Freq PRN Reason Stop Dose Admin Acetaminophen 650 mg 05/12/19 16:13 05/12/19 21:39 Tylenol PO 650 mg Q4H PRN Administration Headache/Fever/Mild Pain (1-3) Amiodarone HCl 200 mg 05/12/19 21:00 05/15/19 08:24 Cordarone PO 200 mg BID YARELIS Administration Amlodipine Besylate 10 mg 05/13/19 09:00 05/15/19 08:24 Norvasc PO 10 mg DAILY YARELIS Administration Atorvastatin Calcium 40 mg 05/12/19 21:00 05/14/19 20:54 Lipitor PO 40 mg HS YARELIS Administration Clonidine 0.1 mg 05/13/19 22:00 05/13/19 22:48 Snlzkeqd-Srh-3 Patch TD 0.1 mg Q7D YARELIS Administration Fenofibrate 145 mg 05/13/19 09:00 05/15/19 08:24 Tricor PO 145 mg DAILY YARELIS Administration Fluoxetine HCl 20 mg 05/13/19 09:00 05/15/19 08:24 Prozac PO 20 mg DAILY YARELIS Administration Gabapentin 100 mg 05/12/19 21:00 05/14/19 20:54 Neurontin PO 100 mg HS YARELIS Administration Insulin Glargine 16 units/ 0.16 mls @ 0 mls/hr 05/13/19 09:00 05/15/19 08:25 Miscellaneous Medication SC 0.16 mls QAM YARELIS Administration Dextrose/Water 1,000 mls @ 0 mls/hr 05/12/19 17:00 05/13/19 17:46 D5w IV 1,000 mls .Q0M PRN Administration Hypoglycemia As Directed Potassium Chloride/Dextrose/Sod Cl 1,000 ml in 1,000 mls @ 50 mls/hr 05/13/19 21:15 05/15/19 12:54 D5 1/2 Ns W/10 Meq Kcl IV Not Given .Q20H YARELIS Metronidazole 250 mg/ 50 mls @ 100 mls/hr 05/13/19 22:00 05/15/19 05:47 Miscellaneous Medication IVPB 50 mls Q8HR YARELIS Administration Cefepime HCl 1 gm/ Sodium 100 mls @ 200 mls/hr 05/14/19 09:00 05/15/19 08:25 Chloride IVPB 100 mls Q12HR YARELIS Administration Insulin Human Regular 0 units 05/12/19 17:00 05/13/19 05:26 Humulin R SC 2 unit .MODERATE SLIDING SC PRN Administration Moderate Correctional Scale Iron/Minerals/Multivitamins 1 tab 05/13/19 09:00 05/15/19 08:24 Theragran M PO 1 tab DAILY [facility]ARELIS Administration Labetalol HCl 10 mg 05/13/19 23:59 05/15/19 12:03 Normodyne SLOW IVP 2 ml Q6HR YARELIS Administration Morphine Sulfate 2 mg 05/14/19 10:53 05/14/19 12:15 Morphine SLOW IVP 2 mg Q8H PRN Administration Pain Oxybutynin Chloride 15 mg 05/13/19 09:00 05/15/19 08:23 Ditropan Xl PO 15 mg DAILY [facility]ARELIS Administration Potassium Chloride 20 meq 05/12/19 17:00 05/15/19 08:24 K-Dur PO 20 meq BID-WM YARELIS Administration Rivaroxaban 15 mg 05/15/19 09:00 05/15/19 08:27 Xarelto PO 15 mg DAILY YARELIS Administration Tramadol HCl 50 mg 05/12/19 17:39 05/15/19 08:36 Ultram PO 50 mg Q8H PRN Administration Moderate Pain (4-6) - Exam General Appearance: NAD, awake alert Eye: PERRL ENT: normocephalic atraumatic Neck: supple Heart: RRR, normal peripheral pulses Respiratory: CTAB, normal chest expansion Gastrointestinal: soft, normal bowel sounds Extremities - other findings: left foot in dressing Hosp A/P - Plan Left toe gangrene Cellultiis of left foot chronic woound w.. necrosis Nonhealing wound on left foot --No sux bl anya no growth -vanc + cefepime and flagyl CKD 3/4 DM2 -hold metformin adn cw insulin + SSI CAD - CVA PAD s/p arterial doppler -- left post tibialis A sternosis - hold. -on amio, BB, fenofibrate, lipitor DVT ppx - scds - restarted w.. renal dose at 15mg po daily. Ecoli UTI resistant to FQ and cephalosporins, sens to macrobid. sux s/o. we have to finalize the abx and have to d/w sux reg.. her PAD and doppler result.
[2019-05-15 17:36] LABS: Vancomycin, Random 15.2 ug/mL (See Comment)
--- NOTE | 2019-05-15 17:52 | PRG ---
DATE OF SERVICE: 05/15/2019 SUBJECTIVE: The patient had a blistered area removed in the left 1st toe. The patient has moderate pain there. No respiratory symptoms or abdominal pain. No diarrhea. OBJECTIVE: VITAL SIGNS: Normal. BP 140/60, pulse 64. GENERAL: Awake, alert, oriented. LUNGS: Symmetric. Clear breath sounds. HEART: S1, S2. Regular rate. ABDOMEN: Soft not distended. EXTREMITIES: The toe has most of the blister removed. This was done at the bedside. Still with the areas of purpuric erythema in the dorsal aspect of the mid foot, but not as intense as before. LABORATORY DATA: The white cell count is down to 6.3, hemoglobin 9.6, platelets 234, creatinine 1.14, sodium 137. The patient had arterial duplex ultrasound of the involved extremity which showed arterial structures of left lower extremity are patent with abnormal monophasic waveforms noted with significant runoff vessel disease most prominently involving the left posterior tibial artery. CT angiogram was recommended. ASSESSMENT AND DISCUSSION: Type 2 diabetes, peripheral vascular disease, atrial fibrillation, gangrene of left first toe with extension. Purpuric skin changes associated with cellulitis to the dorsal aspect of the mid foot region, left side. This was confirmed by arterial duplex ultrasound. Her GFR is almost 50 and maybe she would be eligible for a full vascular evaluation and may consider consultation with the vascular surgeon. She may be not eligible for a vascular study due to the risk of precipitating worsening of renal function and dialysis dependency. An alternate approach would be to treat her conservatively just with antimicrobials, but I think she might benefit from an attempt at revascularization, so I would at least consult the vascular surgeon in that regard. Job ID: [id number]
[2019-05-15] MEDS: Vancomycin HCl 750 MG in Sodium Chloride 0.9% 250 ML 250 ML IVPB SCH (18:18)
[2019-05-15] MEDS: Atorvastatin Calcium 40 MG TAB PO SCH (20:51)
[2019-05-15] MEDS: Gabapentin 100 MG CAP PO SCH (20:52)
[2019-05-16] MEDS: Labetalol HCl 100 MG/20 ML VIAL SLOW IVP SCH ×4 (00:27→17:58)
[2019-05-16] MEDS: D5 1/2 NS w/10 mEq KCl 1,000 ML/1,000 ML BAG IV SCH ×2 (03:37→09:02)
[2019-05-16] MEDS: traMADol HCl 50 MG TAB PO PRN ×2 (03:47→21:43)
[2019-05-16] MEDS: metroNIDAZOLE 250 MG in Admixture Fee 2 EACH IVPB SCH ×3 (05:33→23:09)
[2019-05-16 06:11] LABS: #Basophils 0.1 thou/uL (0.0-0.2); #Eosinphils 0.1 thou/uL (0.0-0.7); #Lymphocytes 1.3 thou/uL (1.20-3.40); #Monocytes 0.5 thou/uL (0.11-0.59); #Neutrophils 4.5 thou/uL (1.40-6.50); %Basophils 0.8 % (0.0-1.0); %Eosinophils 1.9 % (0.0-10.0); %Lymphocytes 19.4 % (21.0-51.0); %Monocytes 7.8 % (0.0-10.0); Mean Corpuscular HGB CONC 33.9 g/dL (32.0-36.0); Mean Corpuscular Hemoglobin 33.2 pg (27.0-31.0); Mean Platelet Volume 6.9 fL (7.4-10.4); Platelet Count 254 thou/uL (130-400); RBC Distribution Width 10.9 % (11.5-14.5); Red Blood Cell (RBC) Count 2.72 mill/uL (4.20-5.40); White Blood Cell (WBC) Count 6.4 thou/uL (4.8-10.8)
[2019-05-16] MEDS: Fenofibrate Nanocrystallized 145 MG TAB PO SCH (08:59)
[2019-05-16] MEDS: Potassium Chloride 20 MEQ TAB PO SCH (09:00)
[2019-05-16] MEDS: Multivitamin W/ Minerals 1 TAB PO SCH (09:00)
[2019-05-16] MEDS: Amlodipine 10 MG TAB PO SCH (09:00)
[2019-05-16] MEDS: Oxybutynin ER 5 MG TAB PO SCH (09:00)
[2019-05-16] MEDS: FLUoxetine HCl 20 MG CAP PO SCH (09:00)
[2019-05-16] MEDS: Cefepime 1 GM in Sodium Chloride 0.9% 100 ML IVPB SCH ×2 (09:01→21:45)
[2019-05-16] MEDS: Rivaroxaban 15 MG TAB PO SCH (09:01)
[2019-05-16] MEDS: Amiodarone 200 MG TAB PO SCH ×2 (09:01→21:44)
[2019-05-16] MEDS: Insulin Glargine 16 UNITS in Pre-Filled Syringe 1 EACH SC SCH (09:14)
[2019-05-16 09:23] LABS: Anion Gap 10 mmol/L (10-20); BUN (Urea Nitrogen) 18 mg/dL (9.8-20.1); Calc. Creatinine Clearance 51 mL/min (70-130); Calcium 8.3 mg/dL (7.8-10.44); Carbon Dioxide 24 mmol/L (23-31); Chloride 108 mmol/L (98-107); Estimated GFR-MDRD 47; Glucose 117 mg/dL (80-115); Potassium 4.3 mmol/L (3.5-5.1); Sodium 138 mmol/L (136-145)
--- NOTE | 2019-05-16 16:38 | PDOC.HOSPP ---
- Subjective Encounter Date: 05/16/19 Encounter Time: 12:10 Subjective: pt at baseline; no acute issues, vasc sux c/s pending. - Objective Vital Signs & Weight: Vital Signs (12 hours) Temp Pulse Resp BP BP Pulse Ox 05/16/19 12:00 50 L 05/16/19 11:22 98.2 F 50 L 18 119/75 93 L 05/16/19 09:00 63 143/71 H 05/16/19 08:30 94 L 05/16/19 07:37 97.9 F 63 18 143/71 H 94 L 05/16/19 05:34 58 L 145/74 H 05/16/19 05:24 98.2 F 59 L 16 145/74 H 93 L Weight Admit Weight 149 lb 14.629 oz Weight 149 lb 14.629 oz I&O: 05/15/19 05/16/19 05/17/19 06:59 06:59 06:59 Intake Total 236 980 Balance 236 980 Result Diagrams: 05/16/19 05:33 05/16/19 08:45 Additional Labs: Accuchecks 05/16/19 05/16/19 05/16/19 12:41 05:16 00:31 POC Glucose 121 H 107 91 05/15/19 20:58 POC Glucose 113 H Hospitalist ROS - Medication Medications: Active Medications Generic Name Dose Route Start Last Admin Trade Name Freq PRN Reason Stop Dose Admin Acetaminophen 650 mg 05/12/19 16:13 05/12/19 21:39 Tylenol PO 650 mg Q4H PRN Administration Headache/Fever/Mild Pain (1-3) Amiodarone HCl 200 mg 05/12/19 21:00 05/16/19 09:01 Cordarone PO 200 mg BID YARELIS Administration Amlodipine Besylate 10 mg 05/13/19 09:00 05/16/19 09:00 Norvasc PO 10 mg DAILY YARELIS Administration Atorvastatin Calcium 40 mg 05/12/19 21:00 05/15/19 20:51 Lipitor PO 40 mg HS YARELIS Administration Clonidine 0.1 mg 05/13/19 22:00 05/13/19 22:48 Fkpsgydw-Nie-6 Patch TD 0.1 mg Q7D YARELIS Administration Fenofibrate 145 mg 05/13/19 09:00 03/12/20 08:59 Tricor PO 145 mg DAILY YARELIS Administration Fluoxetine HCl 20 mg 05/13/19 09:00 05/16/19 09:00 Prozac PO 20 mg DAILY YARELIS Administration Gabapentin 100 mg 05/12/19 21:00 05/15/19 20:52 Neurontin PO 100 mg HS YARELIS Administration Insulin Glargine 16 units/ 0.16 mls @ 0 mls/hr 05/13/19 09:00 05/16/19 09:14 Miscellaneous Medication SC 0.16 mls QAM YARELIS Administration Dextrose/Water 1,000 mls @ 0 mls/hr 05/12/19 17:00 05/13/19 17:46 D5w IV 1,000 mls .Q0M PRN Administration Hypoglycemia As Directed Potassium Chloride/Dextrose/Sod Cl 1,000 ml in 1,000 mls @ 50 mls/hr 05/13/19 21:15 05/16/19 09:02 D5 1/2 Ns W/10 Meq Kcl IV Not Given .Q20H YARELIS Metronidazole 250 mg/ 50 mls @ 100 mls/hr 05/13/19 22:00 05/16/19 14:33 Miscellaneous Medication IVPB 50 mls Q8HR YARELIS Administration Cefepime HCl 1 gm/ Sodium 100 mls @ 200 mls/hr 05/14/19 09:00 05/16/19 09:01 Chloride IVPB 100 mls Q12HR YARELIS Administration Vancomycin HCl 750 mg/ Sodium 250 mls @ 250 mls/hr 05/15/19 18:00 05/15/19 18 :18 Chloride IVPB 250 mls 1800 YARELIS Administration Insulin Human Regular 0 units 05/12/19 17:00 05/13/19 05:26 Humulin R SC 2 unit .MODERATE SLIDING SC PRN Administration Moderate Correctional Scale Iron/Minerals/Multivitamins 1 tab 05/13/19 09:00 05/16/19 09:00 Theragran M PO 1 tab DAILY [facility]ARELIS Administration Labetalol HCl 10 mg 05/13/19 23:59 05/16/19 12:00 Normodyne SLOW IVP Not Given Q6HR [facility] Morphine Sulfate 2 mg 05/14/19 10:53 05/14/19 12:15 Morphine SLOW IVP 2 mg Q8H PRN Administration Pain Oxybutynin Chloride 15 mg 05/13/19 09:00 05/16/19 09:00 Ditropan Xl PO 15 mg DAILY YARELIS Administration Rivaroxaban 15 mg 05/15/19 09:00 05/16/19 09:01 Xarelto PO 15 mg DAILY YARELIS Administration Senna/Docusate Sodium 2 tab 05/12/19 16:13 05/16/19 10:08 Senokot S PO 2 tab BIDPRN PRN Administration Constipation Tramadol HCl 50 mg 05/12/19 17:39 05/16/19 03:47 Ultram PO 50 mg Q8H PRN Administration Moderate Pain (4-6) - Exam General Appearance: NAD, awake alert Eye: PERRL ENT: normocephalic atraumatic Neck: supple Heart: RRR Respiratory: CTAB, normal chest expansion Gastrointestinal: soft, no palpable masses Hosp A/P - Plan Left toe gangrene Cellultiis of left foot chronic woound w.. necrosis Nonhealing wound on left foot --No sux bl anya no growth -vanc + cefepime and flagyl CKD 3/4 DM2 -hold metformin adn cw insulin + SSI CAD - CVA PAD s/p arterial doppler -- left post tibialis A sternosis - hold. -on amio, BB, fenofibrate, lipitor DVT ppx - scds - restarted w.. renal dose at 15mg po daily. Ecoli UTI resistant to FQ and cephalosporins, sens to macrobid. sux s/o. we have to finalize the abx and have to d/w sux reg.. her PAD and doppler result. vasc sux consult pending. she is from [place]. prob transf back when medically able.
--- NOTE | 2019-05-16 17:25 | CON ---
DATE OF CONSULTATION: 05/16/2019 REQUESTING PHYSICIAN: Dr. Cade. CONSULTING PHYSICIANS: 1. Dr. Gilbert. 2. Dr. Win. CHIEF COMPLAINT: Left foot pain. HISTORY OF PRESENT ILLNESS: The patient is a 68-year-old woman, who is said to have a dementia. She has had several strokes and various examiners documented that she was only oriented to self or self and place. She also has hypertension and diabetes and was brought from long term with complaints of left foot pain. She had cellulitic changes on the forefoot that seemed to be extending from the wounds on the left great toe and on vancomycin, Flagyl, and cefepime, cellulitis and the associated pain seem to have improved. PAST MEDICAL HISTORY: Significant for cerebral vascular disease, atrial fibrillation, stage 3 chronic renal insufficiency, diabetes mellitus, and hypertension. MEDICATIONS: Medications on admission were metformin 500 mg b.i.d., hydralazine 50 mg t.i.d., clonidine 0.1 mg b.i.d., Lopressor 25 mg b.i.d., Norvasc 10 mg a day, Levemir insulin 10 units at bedtime and 16 units in the morning, potassium 20 mEq twice a day, Xarelto 20 mg a day, oxybutynin 15 mg a day, fluoxetine 20 mg a day , Lipitor 40 mg at bedtime, amiodarone 200 mg b.i.d., Aggrenox 1 twice a day, nitrofurantoin 50 mg q.i.d., Neurontin 100 mg at bedtime, Fenofibrate 145 mg a day, and multivitamin. ALLERGIES: SHE REPORTS ALLERGIES TO NAPROXEN AND LISINOPRIL. SOCIAL HISTORY: She does not smoke or drink. REVIEW OF SYSTEMS: Difficult to obtain. She describes only getting around in a wheelchair. Otherwise is bed-bound. She says that her foot pain has improved since hospitalization. PHYSICAL EXAMINATION: GENERAL: She appears older than her stated age and appears chronically ill and debilitated. VITAL SIGNS: In the emergency room, her heart rate was 79, blood pressure 128/ 65, and temperature was 98.7. Currently, her heart rate is in the 50s to 60s. Blood pressure 120 to 140 over 70 to 75, temperature is 98.2, and her maximum temperature since admission to the [facility] on the 8th been 98.8. LUNGS: She has clear breath sounds. HEART: She has a slow, regular rate and rhythm without obvious murmur. ABDOMEN: Soft and nontender. EXTREMITIES: She has palpable femoral pulses bilaterally. She has no associated femoral bruits. I am not able to palpate pedal pulses on the either side. On the left, I am able to easily feel a popliteal pulse. She has a large blistered area with left blister and underlying red tissue that diffusely is granulating and bleeding well involving much of the distal phalanx and extending a little bit onto the proximal phalanx medially on the left great toe to very tip of the left great toe is a dry eschar consistent with dry gangrenous changes. She has about a 0.5 cm shallow ulcer with yellow fibrinous exudate on it on the lateral aspect of the heel where she lays with leg externally rotated and lying on that position. She has flexion contractures of both ankles, a little bit worse on the right than on the left. She has a Doppler pulse in the dorsalis pedis and digital vessel at the base of the left great toe. In the great toe itself, capillary refill is only about 2 to 3 seconds. Refill of the saphenous vein as it emerges from the foot is a little bit slow, but not dramatically slow and fairly similar to the contralateral side. The skin of the left foot appears to be healthy. LABORATORY DATA: Her white count is 16.7 with 86.3% neutrophils and 6.3% lymphocytes on computerized differential. Her hemoglobin is 8.0, hematocrit 23.4, and platelets are 332,000. This morning, her white count was 6.4 with 70% neutrophils and 19.4% lymphocytes. Her hemoglobin was 9.0 and platelets were 254,000. Her MCVs have all been in the 98 to 99 range. On admission, her electrolytes were normal; glucose 206, BUN 36, and creatinine 2.14 with an estimated GFR of 23. In the next morning, her BUN is 41 and creatinine 2.42 with an estimated GFR of 20. Her LFTs were normal. Her albumin was 9.1. Her blood sugars have been under better control staying around 100 to 140, since admission, and on this morning's labs, her BUN is 18, creatinine 1.15 with an estimated GFR of 47. The x-ray of her foot on admission shows no obvious soft-tissue defects or bony erosion, but it does show vascular calcifications in the vasculature crossing the ankle into the foot and extending on out into the forefoot and even into the great toe. She does not have a chest x-ray this admission though. Most recent one I found in our system is from April of 2017, at which time, she had pulmonary edema with hilar fluffiness and some cardiomegaly and arterial Doppler of the left leg describes widely patent vasculature, but monophasic waveforms throughout the lower extremity with minimal flow in the foot. IMPRESSION AND RECOMMENDATIONS: I am not quite sure how to reconcile physical exam and the vascular ultrasound. The findings of the dampened waveforms throughout the leg would suggest inflow disease that is pretty significant. However, the femoral pulse is fairly easy to feel and there is no associated bruit. Likewise, her popliteal pulse is fairly easy to feel suggesting a trifurcation vessel disease, which one would also expect based upon the vascular calcifications seen in the foot. It is possible that the dampened waveforms could reflect poor cardiac output. Most recent echocardiogram I find on her is from March of 2017 at which time, her LV function was described as mildly depressed, but still had an EF of approximately 40% to 45%. The physical exam, primarily the granulation bed, an easy bleeding of the blister on her toe and the presence of a Doppler signal in the digital vessel at the base of the toe would suggest that if these wounds are not able to heal on their own, that the toe amputation has a reasonable chance of healing. Based on physical exam, I would expect that if she had does need revascularization, then would require a femoral distal bypass and given her nonambulatory status, this really is not justified. She apparently does not really even bear weight based upon the presence of flexion contractures in both ankles. I will follow up on a p.r.n. basis. Job ID: [id number] [facility]
[2019-05-16] MEDS: Vancomycin HCl 750 MG in Sodium Chloride 0.9% 250 ML 250 ML IVPB SCH (17:58)
[2019-05-16] MEDS: Atorvastatin Calcium 40 MG TAB PO SCH (21:43)
[2019-05-16] MEDS: Gabapentin 100 MG CAP PO SCH (21:45)
[2019-05-17] MEDS: Labetalol HCl 100 MG/20 ML VIAL SLOW IVP SCH ×3 (00:50→12:01)
[2019-05-17] MEDS ORDERED: Vancomycin HCl 750 MG in Sodium Chloride 0.9% 250 ML 250 ML IVPB SCH (04:00)
[2019-05-17] MEDS: D5 1/2 NS w/10 mEq KCl 1,000 ML/1,000 ML BAG IV SCH (04:39)
[2019-05-17] MEDS: traMADol HCl 50 MG TAB PO PRN (04:44)
[2019-05-17 04:56] VITALS: TEMP 97.6
[2019-05-17] MEDS: metroNIDAZOLE 250 MG in Admixture Fee 2 EACH IVPB SCH ×2 (06:20→14:00)
[2019-05-17] MEDS: Cefepime 1 GM in Sodium Chloride 0.9% 100 ML IVPB SCH (08:20)
[2019-05-17] MEDS: Oxybutynin ER 5 MG TAB PO SCH (08:22)
[2019-05-17] MEDS: Multivitamin W/ Minerals 1 TAB PO SCH (08:22)
[2019-05-17] MEDS: Fenofibrate Nanocrystallized 145 MG TAB PO SCH (08:22)
[2019-05-17] MEDS: FLUoxetine HCl 20 MG CAP PO SCH (08:22)
[2019-05-17] MEDS: Amiodarone 200 MG TAB PO SCH (08:22)
[2019-05-17] MEDS: Amlodipine 10 MG TAB PO SCH (08:22)
[2019-05-17] MEDS: Rivaroxaban 15 MG TAB PO SCH (08:22)
[2019-05-17 09:15] LABS: Anion Gap 11 mmol/L (10-20); BUN (Urea Nitrogen) 14 mg/dL (9.8-20.1); Calc. Creatinine Clearance 55 mL/min (70-130); Calcium 8.7 mg/dL (7.8-10.44); Carbon Dioxide 24 mmol/L (23-31); Chloride 107 mmol/L (98-107); Estimated GFR-MDRD 52; Glucose 112 mg/dL (80-115); Potassium 3.9 mmol/L (3.5-5.1); Sodium 138 mmol/L (136-145)
[2019-05-17] MEDS: Insulin Glargine 16 UNITS in Pre-Filled Syringe 1 EACH SC SCH (09:38)
[2019-05-17 14:16] VITALS: BP 130/73
--- NOTE | 2019-05-18 02:22 | DIS ---
DATE OF ADMISSION: 05/12/2019 DATE OF DISCHARGE: 05/17/2019 DISCHARGE DIAGNOSES: 1. Left toe gangrene. 2. Cellulitis of the left foot. 3. Chronic wound with necrosis. It improved better with IV antibiotics. 4. Type 2 diabetes mellitus. 5. Coronary artery disease. 6. History of cerebrovascular accident. 7. Peripheral arterial disease. 8. Escherichia coli urinary tract infection, resistant to fluoroquinolones and sensitive to Macrobid. DISCHARGE MEDICATIONS: 1. Augmentin 875 twice a day for seven days. 2. Macrobid 100 mg twice a day for five more days. 3. Norvasc 10 mg daily. 4. Amiodarone 200 mg twice a day. 5. Lipitor 40 mg at bedtime. 6. Fenofibrate 145 mg daily. 7. Fluoxetine 20 mg daily. 8. Gabapentin 100 mg at bedtime. 9. Rivaroxaban 20 mg daily. 10. Aggrenox 1 tablet twice a day. 11. Clonidine 0.01 mg twice a day. 12. Aricept 23 mg daily. 13. Hydralazine 50 mg three times a day. 14. Metformin 500 mg twice a day. 15. Lopressor 25 mg twice a day. 16. Potassium chloride 20 mEq twice a day. Consults - ID and vascular surgery PHYSICAL EXAMINATION: VITAL SIGNS: On the day of discharge, temperature 97.6, pulse 64, blood pressure 119/75, saturating 98% on room air. GENERAL: The patient is alert and oriented x2. She has dementia and always asking the same question during my rounds. Otherwise, her foot looks good. Toe looks much improved. Erythema is much resolved. CARDIOVASCULAR: Regular rate and rhythm without murmurs, rubs, or gallops. LUNGS: Clear to auscultation bilaterally without wheezing, rales, or rhonchi. ABDOMEN: Soft, nontender, nondistended. Good bowel sounds. HOSPITAL COURSE: Please refer to history and physical and daily progress note for more details. This is a 68-year-old female with a history of dementia, presented with chronic left foot wound nonhealing, presented from alf. We started vancomycin, Flagyl, and cefepime, and cellulitis improved. There was concern about peripheral arterial disease and we did Doppler ultrasound. Imaging reports were different from physical exam. No associated femoral bruit and she had palpable femoral pulses bilaterally. She has popliteal pulse as well. Based on the Doppler study, there is stenosis in the posterior tibialis area. Vascular Surgery, Dr. Dominguez, evaluated and it appears that given her nonambulatory status, she would not benefit with revascularization. Also, she is not bearing weight and she has presence of flexion contractures in both ankles. Infectious Disease followed and agreeable in sending with Augmentin for one week. The patient also has urinary tract infection and E coli is resistant to fluoroquinolones and cephalosporins. She is on Macrobid and will complete the course for 5 more days. The patient reached maximum benefit during this hospitalization and she will be discharged clinically in stable condition back to her alf. DISCHARGE INSTRUCTIONS: Activity as tolerated. Healthy heart diet and diabetic diet. Follow up with primary care physician in 1 week. TIME SPENT: Discharge time took over 30 minutes. Job ID: [id number] [facility]
== END 2019-05-17 15:06 | DRG 300 ==
LOC: ERS 14:29 → T4-B 16:10
PROVIDERS: ADMIT Internal Medicine; ATTEND Internal Medicine
DX: E11.52 Type 2 diabetes mellitus with diabetic peripheral angiopathy with gangrene (principal); I96 Gangrene, not elsewhere classified; L03.116 Cellulitis of left lower limb; N39.0 Urinary tract infection, site not specified; Z16.23 Resistance to quinolones and fluoroquinolones; I48.20 Chronic atrial fibrillation, unspecified; N18.3 Chronic kidney disease, stage 3 (moderate); E11.42 Type 2 diabetes mellitus with diabetic polyneuropathy; I12.9 Hypertensive chronic kidney disease with stage 1 through stage 4 chronic kidney disease, or unspecified chronic kidney disease; F01.50 Vascular dementia, unspecified severity, without behavioral disturbance, psychotic disturbance, mood disturbance, and anxiety; B96.20 Unspecified Escherichia coli [E. coli] as the cause of diseases classified elsewhere; E11.22 Type 2 diabetes mellitus with diabetic chronic kidney disease; R13.10 Dysphagia, unspecified; I25.10 Atherosclerotic heart disease of native coronary artery without angina pectoris; Z86.73 Personal history of transient ischemic attack (TIA), and cerebral infarction without residual deficits; Z79.4 Long term (current) use of insulin; Z79.01 Long term (current) use of anticoagulants
CPT/HCPCS: 36415; 36416; 74230; 80048; 80053; 80202; 81003; 81015; 83605; 85025; 85652; 86140; 87040; 87077; 87086; 87186; 90471; 90662; 90670; 93923; A4353; G0008; G0009; J0692; J0696; J1815; J2270; J3010; J3370; J3490; J7050

== ENCOUNTER 2019-11-29 09:10 | Inpatient (IN) | payer MEDICARE, MEDICAID, OTHER ==
--- NOTE | 2019-11-29 10:08 | RAD ---
Chest AP view INDICATION: History of lung problems COMPARISON: April 14, 2017 FINDINGS: Lungs: There is worsening airspace disease within the region of the right middle lobe suspicious for pneumonia. Cardiac silhouette: There is stable mild cardiomegaly Pulmonary vasculature: Normal Pleural spaces: No pleural effusion or pneumothorax is demonstrated. Upper abdomen: Cholecystectomy Osseous structures: No acute osseous abnormality. Additional findings: None. IMPRESSION: Increased airspace disease involving the region of the right middle lobe suspicious for pneumonia
[2019-11-29 10:14] LABS: #Lymphocytes 1.3 thou/uL (1.20-3.40); #Monocytes 0.2 thou/uL (0.11-0.59); #Neutrophils 3.6 thou/uL (1.40-6.50); %Basophils 0.3 % (0.0-1.0); %Eosinophils 0.7 % (0.0-10.0); %Lymphocytes 25.1 % (21.0-51.0); %Monocytes 3.1 % (0.0-10.0); %Neutrophils 70.7 % (42.0-75.0); Hemoglobin 13.1 g/dL (12.0-16.0); Mean Corpuscular HGB CONC 32.9 g/dL (32.0-36.0); Mean Corpuscular Hemoglobin 33.7 pg (27.0-31.0); Mean Platelet Volume 6.9 fL (7.4-10.4); Platelet Count 200 thou/uL (130-400); RBC Distribution Width 12.1 % (11.5-14.5); White Blood Cell (WBC) Count 5.1 thou/uL (4.8-10.8)
[2019-11-29 10:24] LABS: CO2 Tension 41.2 mmHg (35.0-45.0)
[2019-11-29 10:25] LABS: Actual Bicarbonate (HCO3a) 17.3 mEq/L (22-28); Analyzer IN Cardio ER; Base Excess (BEa) -9.5 mEq/L (-2.0 to +3.0); Hemoglobin (Hb) 12.5 g/dL (12.0-16.0); O2 Tension (PaO2), arterial 77.3 mmHg (> 80.0); Potassium - ABG Lab 4.88 mmol/L (3.70-5.30)
[2019-11-29 10:43] LABS: ALT (SGPT) 52 U/L (8-55); AST (SGOT) 27 U/L (5-34); Albumin 3.3 g/dL (3.4-4.8); Alkaline Phosphatase 55 U/L (40-110); Anion Gap 19 mmol/L (10-20); BUN (Urea Nitrogen) 42 mg/dL (9.8-20.1); Bilirubin, Total 0.3 mg/dL (0.2-1.2); Calc. Creatinine Clearance 0 mL/min (70-130); Calcium 8.5 mg/dL (7.8-10.44); Carbon Dioxide 18 mmol/L (23-31); Chloride 114 mmol/L (98-107); Estimated GFR-MDRD 51; Globulin 3.4 g/dL (2.4-3.5); Glucose 120 mg/dL (80-115); Potassium 5.4 mmol/L (3.5-5.1); Protein, Total 6.7 g/dL (6.0-8.3); Sodium 146 mmol/L (136-145)
[2019-11-29 10:53] LABS: Bacteria/HPF None Seen HPF (None Seen); Bilirubin Negative (Negative); Blood, Urine Negative (Negative); Clarity Turbid (Clear); Glucose, Urine (Dipstick) Normal (Negative); Ketone, Urine Negative (Negative); Leukocyte Negative Leu/uL (Negative); Nitrite Negative (Negative); Protein, Urine (Dipstick) 70 mg/dL (Neg-Trace); RBC/HPF 0-3 HPF (0-3); Specific Gravity, Urine 1.022 (1.002-1.036); Squamous Epithelial None Seen HPF (0-3); Urobilinogen Normal mg/dL (Less than 2)
[2019-11-29] MEDS ORDERED: cefTRIAXone\\ROCEPHIN 1 GM VIAL ONE (11:06)
[2019-11-29] MEDS ORDERED: Azithromycin 500 MG VIAL ONE (11:06)
[2019-11-29 11:35] LABS: SARS-CoV-2 NAA Rapid Test Not Detected (NotDetected)
[2019-11-29 12:26] LABS: pH, Arterial 7.24 (7.35-7.45)
[2019-11-29 12:27] LABS: Puncture Site LBA
[2019-11-29] MEDS ORDERED: Acetaminophen 325 MG TAB PO PRN (13:23)
--- NOTE | 2019-11-29 13:57 | PDOC.FPRHP ---
- History of Present Illness Chief Complaint: Hypoxia History of Present Illness: Patient is a 69 year old female with a history of multiple CVAs and TIAs, Alzheimer's disease, Afib, QTc prolongation, HTN, DM2, and CKD3 who presents to the ED with reports of hypoxia this am at [facility]. Per ED report, the patient was noted to have SOB with sat's in 70s at the [place]. En route on EMS, the patient's BP was 103/46. She received 2 duoneb treatments, 125 solumedrol, and 500 mL NS. In the ED, patient received 2L NS, Rocephin 1g, and Azithromycin 500mg. Per report, the patient has not exhibited fever, runny nose and cough. No known sick contacts. The patient does not have a history of breathing problems. Communication is limited to shaking head "yes" and "no" with occasional other single words. Per son, this is baseline since her CVA in 2004. He reports patient is bed bound and requires assistance with all ADLs. - Allergies/Adverse Reactions Allergies Allergy/AdvReac Type Severity Reaction Status Date / Time lisinopril Allergy Severe Short of Verified 05/13/19 00:07 Breath naproxen [From Naprosyn] Allergy Severe Anaphylaxis Verified 05/13/19 00:07 tramadol Allergy Unknown Verified 11/29/19 16:05 - Home Medications Medication Instructions Recorded Confirmed Type Gabapentin 100 mg PO HS #0 capsule 05/20/15 11/29/19 Rx Metoprolol Tartrate [Lopressor] 25 mg PO BID #0 tab 05/20/15 11/29/19 Rx Rivaroxaban [Xarelto] 20 mg PO DAILY #0 tab 05/20/15 11/29/19 Rx Donepezil HCl 23 mg PO HS 07/19/15 11/29/19 History FLUoxetine HCl 20 mg PO DAILY 03/17/17 11/29/19 History Atorvastatin Calcium [Lipitor] 10 mg PO DAILY 04/03/17 11/29/19 History Multivitamin [Multivitamins] 1 cap PO DAILY 04/03/17 11/29/19 History metFORMIN [Glucophage] 500 mg PO BID-WM 04/03/17 11/29/19 History Aspirin-Dipyridamole [Aggrenox] 1 cap PO BID cap 04/11/17 11/29/19 Rx hydrALAZINE [Apresoline] 50 mg PO TID tab 04/11/17 11/29/19 Rx Potassium Chloride [K-Dur] 20 meq PO BID #20 tab 04/17/17 11/29/19 Rx Amino Acids/Protein Hydrolys 30 ml PO QAM 11/29/19 11/29/19 History [Pro-Stat Sugar Free Liquid Packet] Amiodarone [Cordarone] 100 mg PO BID 11/29/19 11/29/19 History Amlodipine [Norvasc] 5 mg PO BID 11/29/19 11/29/19 History Ascorbic Acid [Vitamin C] 500 mg PO BID 11/29/19 11/29/19 History Cyanocobalamin (Vitamin B-12) 500 mcg PO DAILY 11/29/19 11/29/19 History [B-12] Lactobacillus [Floranex] 1 tab PO BID 11/29/19 11/29/19 History Levofloxacin [Levaquin] 750 mg PO DAILY 11/29/19 11/29/19 History Zinc 50 mg PO DAILY 11/29/19 11/29/19 History - History Obtained history through chart review and per patient's son PMHx: multiple CVAs and TIAs, Alzheimer's disease, Afib, QTc prolongation, HTN, DM2, CKD3, cataracts, anxiety, depression, HLD PSHx: cholecystectomy, cardiac stent in 2013, laminectomy FHx: Noncontributory Social: Lives at [facility]. Son denies hx of cigarette use, alcohol use and ETOH use. - Review of Systems ROS unobtainable: other (patient's baseline communication limited to shaking head and occasional one word. Difficult to obtain full ROS) Eyes: denies: vision changes ENT: denies: nasal congestion, rhinorrhea Respiratory: reports: shortness of breath. denies: cough Cardiovascular: denies: chest pain Gastrointestinal: denies: abdominal pain Genitourinary: denies: dysuria Musculoskeletal: denies: pain Neurological: denies: syncope, seizure - Vital signs BP: [123/61] HR: [74] RR: [20] Tmax: [97.8] Pox: [100]% on [High Flow] Wt: [59.5kg] - Physical Exam Constitutional: NAD -Constitutional: Frail appearing HEENT: normocephalic and atraumatic, no scleral icterus Neck: trachea midline Chest: no-tender to palpation, no lesions Heart: RRR, normal S1/S2, no edema -Lungs: Coarse breath sounds throughout lung rivero Abdomen: soft, non-tender, bowel sounds present, no masses/distention -Musculoskeletal: No deformity noted -Neurological: Strength: LUE 4/5, RUE 4/5, LLE 3/5, RLE 3/5. Strong commercial loan manager. A&Ox3 Skin: no jaundice -Skin: Dry gangrene, right big toe. Erythema, right digits -Heme/Lymphatic: Ecchymosis on dorsal side of hands bilaterally. Ecchymosis on left heel. FMR H&P: Results - Labs Result Diagrams: 11/30/19 03:14 11/30/19 03:14 Lab results: WBC 5.1 thou/uL (4.8-10.8) 11/29/19 09:55 Hgb 13.1 g/dL (12.0-16.0) 11/29/19 09:55 Hct 40.0 % (36.0-47.0) 11/29/19 09:55 MCV 103.0 fL (78.0-98.0) H 11/29/19 09:55 Plt Count 200 thou/uL (130-400) 11/29/19 09:55 Neutrophils % 70.7 % (42.0-75.0) 11/29/19 09:55 ABG pH 7.24 (7.35-7.45) L* 11/29/19 10:03 ABG pCO2 41.2 mmHg (35.0-45.0) 11/29/19 10:03 ABG pO2 77.3 mmHg (> 80.0) 11/29/19 10:03 Sodium 146 mmol/L (136-145) H 11/29/19 09:55 Potassium 5.4 mmol/L (3.5-5.1) H 11/29/19 09:55 Chloride 114 mmol/L (98-107) H 11/29/19 09:55 Carbon Dioxide 18 mmol/L (23-31) L 11/29/19 09:55 BUN 42 mg/dL (9.8-20.1) H 11/29/19 09:55 Creatinine 1.07 mg/dL (0.6-1.1) 11/29/19 09:55 Glucose 120 mg/dL (80-115) H 11/29/19 09:55 Lactic Acid 5.6 mmol/L (0.5-2.2) H* 11/29/19 09:55 Calcium 8.5 mg/dL (7.8-10.44) 11/29/19 09:55 Total Bilirubin 0.3 mg/dL (0.2-1.2) 11/29/19 09:55 AST 27 U/L (5-34) 11/29/19 09:55 ALT 52 U/L (8-55) 11/29/19 09:55 Alkaline Phosphatase 55 U/L (40-110) 11/29/19 09:55 Serum Total Protein 6.7 g/dL (6.0-8.3) 11/29/19 09:55 Albumin 3.3 g/dL (3.4-4.8) L 11/29/19 09:55 Urine Ketones Negative mg/dL (Negative) 11/29/19 09:40 Urine Blood Negative (Negative) 11/29/19 09:40 Urine Nitrite Negative (Negative) 11/29/19 09:40 Ur Leukocyte Esterase Negative Maureen/uL (Negative) 11/29/19 09:40 Urine RBC 0-3 HPF (0-3) 11/29/19 09:40 Urine WBC 4-6 HPF (0-3) A 11/29/19 09:40 Ur Squamous Epith Cells None Seen HPF (0-3) 11/29/19 09:40 Urine Bacteria None Seen HPF (None Seen) 11/29/19 09:40 FMR H&P: A/P - Plan Acute hypoxic respiratory failure 2/2 CAP Sat's 70s at NS, improved to 100% on HF 60L, 65%. WBC 5.1. Respiratory acidosis on abg, improved on repeat. LA 5.6. Trop 0.02. CXR showed increased airspace disease in RML, likely pneumonia. COVID negative. Received Rocephin, Azithro in ED. Wells score 1.5, therefore low suspicion for PE. -Admit to IMCU -Continue HFNC, wean as tolerated while maintaining sats > 88% -Procal, CRP level -Start Zosyn 4.5mg Q6H (11/28) -NPO for speech consult to evaluate swallowing Dry gangrene, right 1st toe -Patient denies pain -Consult general surgery in am Hypernatremia likely 2/2 dehydration Hyperkalemia likely 2/2 dehydration Na 146, K 5.4, BUN 42. Likely due to chronic dehydration. Received 2.5L prior to admission. -LR at 75 for maintanence fluids -BMP in am to monitor -Hold home KCl Macrocytic anemia likely 2/2 poor PO intake Hgb 13.1, MCV 103. -Order folate, B12 -CBC in am to monitor Long QT syndrome QTc was 497 on EKG -Montor on tele -Avoid qt prolonging medications Afib -NSR on EKG -Restart home meds DM2 -Mild SS -Restart home meds HTN -Hold overnight due to hypotension in ED CKD3 Cr 1.07, appears at baseline. -Renally adjust meds Alzheimer's disease -Restart home meds Hx CVA/TIA -Restart home xarelto Anxiety Depression -Aware HLD -Restart home meds Code: Full per patient and family Prophylaxis: Home Xarelto PCP: CC Dispo: Admit to IMCU, expected LOS > 48 hours FMR H&P: Upper Level - Plan Date/Time: 11/29/19 8617 IBurton DO, have evaluated this patient and agree with findings/plan as outlined by international sourcing manager resident. Pertinent changes/additions are listed here. This is a 69 yo female with a pmh of DM2, CAD, CVA, PAD, HTN, atrial fibrillation, long QT syndrome, CKD 3, Alzheimer's disease, HLD, who presents to the ER with a cc of hypoxia. The patient was found to be hypoxic with SpO2 in the 70s this morning. En route to the ER, EMS gave 2 duonebs, Solumedrol 125mg, and NS 500ml bolus. Her breathing improved with a non-rebreather. In the ER, she was found to be 91% on this face mask and she was switched over to HFNC 60L/65%. Per NH and family, there has been no change prior to this event. The NH reports her baseline is almost aphasic, bed bound, and dependent for ADLs. Pt denies chest pain, cough, fever, or pain. She states she is breathing better. The remainder of her ROS was difficult to obtain due to poor speech. Objective: Vitals: BP 123/61, HR 74, RR 20, Temp 97.8, SpO2 100% on HFNC as documented above, Wt 54kg General: NAD on HFNC, cachetic HEENT: AT/NC Cardio: RRR, no murmurs Respiratory: Coarse lung sounds, likely from upper airway radiation Abdomen: soft, non-tender, BS+ Extremities: Diminished LE pulses, right first toe with dry eschar and mild erythema A/P Acute hypoxic respiratory failure 2/2 CAP -Admit to IMCU overnight -Continue HFNC and titrate down as tolerated -S/P Azithromycin and Rocephin in the ER, will continue with Zosyn as monotherapy -S/P 3L NS in ER -lactic acid 5.6 in ER - CXR consistent with RML PNA -DDx include PE, NM, Aspiration but are of lower concern Long QT syndrome -Per EKG, QTc was 497, we are avoiding QT prolonging medications -Will monitor on Tele CKD 3, appears stable from previous admissions Likely dry gangrene of the first right toe -Consult general surgery in the AM See international sourcing manager note for further information on chronic conditions Code: Full, discussed with pt who is decisional at the time. Prophylaxis: Home Xarelto Family: None at bedside Fluids: 75ml/hr LR Diet: NPO pending speech eval given her CVAs Disposition: DC in 3-4 days PCP: CC Addendum - Attending - Attending Attestation Date/Time: 11/30/19 9515 I personally evaluated the patient and discussed the management with Dr. Denny and Radhiak yesterday in the IMCU shortly after arrival to the Unit. I agree with the History, Examination, Assessment and Plan documented above with any addition or exceptions noted below.
[2019-11-29 15:07] LABS: Lactic Acid 5.3 mmol/L (0.5-2.2)
[2019-11-29] MEDS: Lactated Ringer's 1,000 ML IV SCH (15:32)
[2019-11-29] MEDS ORDERED: Dextrose 50% Abboject 50 ML SYRINGE SLOW IVP PRN (16:36)
[2019-11-29] MEDS ORDERED: Dextrose 5% in Water 1,000 ML IV PRN (16:36)
[2019-11-29] MEDS ORDERED: HumaLOG 300 UNITS/3 ML VIAL SC PRN ×2 (16:36)
[2019-11-29] MEDS: Piperacillin/Tazobactam 4.5 GM in Sodium Chloride 0.9% 100 ML IVPB SCH (18:01)
[2019-11-29] MEDS: Amiodarone 200 MG TAB PO SCH (20:55)
[2019-11-29] MEDS: Gabapentin 100 MG CAP PO SCH (20:55)
[2019-11-29] MEDS: Ascorbic Acid 500 mg Chewable Tablet PO SCH (20:55)
[2019-11-29] MEDS ORDERED: Donepezil Hcl [Donepezil Hcl] 23 MG Tablet PO SCH (21:00)
[2019-11-29] MEDS: Lactinex Tablet PO SCH (21:21)
[2019-11-30] MEDS: Piperacillin/Tazobactam 4.5 GM in Sodium Chloride 0.9% 100 ML IVPB SCH ×4 (00:26→17:33)
[2019-11-30] MEDS: Lactated Ringer's 1,000 ML IV SCH ×4 (03:29→20:59)
[2019-11-30] MEDS ORDERED: Lactated Ringer's 500 ML IVPB SCH (03:30)
[2019-11-30 03:46] LABS: Lactic Acid 3.8 mmol/L (0.5-2.2)
[2019-11-30 03:49] LABS: Anion Gap 16 mmol/L (10-20); BUN (Urea Nitrogen) 47 mg/dL (9.8-20.1); Calc. Creatinine Clearance 43 mL/min (70-130); Calcium 7.7 mg/dL (7.8-10.44); Carbon Dioxide 19 mmol/L (23-31); Chloride 117 mmol/L (98-107); Estimated GFR-MDRD 46; Glucose 191 mg/dL (80-115); Potassium 4.8 mmol/L (3.5-5.1); Sodium 147 mmol/L (136-145)
[2019-11-30 04:01] LABS: #Lymphocytes 0.4 thou/uL (1.20-3.40); #Monocytes 0.5 thou/uL (0.11-0.59); #Neutrophils 8.6 thou/uL (1.40-6.50); %Basophils 0.1 % (0.0-1.0); %Eosinophils 0.1 % (0.0-10.0); %Lymphocytes 4.2 % (21.0-51.0); %Monocytes 5.4 % (0.0-10.0); %Neutrophils 90.2 % (42.0-75.0); Hemoglobin 9.2 g/dL (12.0-16.0); Mean Corpuscular HGB CONC 33.3 g/dL (32.0-36.0); Mean Corpuscular Hemoglobin 34.3 pg (27.0-31.0); Mean Platelet Volume 6.8 fL (7.4-10.4); Platelet Count 140 thou/uL (130-400); Red Blood Cell (RBC) Count 2.68 mill/uL (4.20-5.40); White Blood Cell (WBC) Count 9.5 thou/uL (4.8-10.8)
--- NOTE | 2019-11-30 05:26 | PDOC.FM ---
- Subjective Subjective: Overnight patient had low SBP to the 80s, she was given 500cc bolus and BP has been improved to 90-100s since then. Responses are limited to yes/no. Denies any chest pain, abdominal pain, SOB. Endorses some discomfort with taking a deep breath. Also endorses toe pain in R great toe. Denies having additional complaints. Endorses feeling better today than yesterday. - Objective Vital Signs & Weight: Vital Signs (12 hours) Temp Pulse Ox 11/30/19 04:00 99.0 F 11/30/19 02:19 100 11/30/19 00:00 98.6 F 11/29/19 20:00 100 11/29/19 19:46 98.4 F Weight Weight 58.513 kg Most Recent Monitor Data Heart Rate from ECG 56 NIBP 109/57 NIBP BP-Mean 74 Respiration from ECG 12 SpO2 100 Result Diagrams: 11/30/19 03:14 11/30/19 03:14 Phys Exam - Physical Examination Constitutional: NAD dry MM limited side-side ROM Respiratory: no rales scattered wheezes, on 2L NC Cardiovascular: RRR, no significant murmur Gastrointestinal: soft, non-tender, no distention, positive bowel sounds Musculoskeletal: no edema pulses not easily palpable, feet warm, R great toe necrotic w/o drainage speech and motor chronically limited responds appropriately, unable to fully assess due limited speech Skin: no rash Dx/Plan - Plan Plan: Acute hypoxic respiratory failure 2/2 CAP Sat's 70s at NS, improved to 100% on HF 60L, 65%. WBC 5.1. Respiratory acidosis on abg, improved on repeat. Initial LA 5.6. Trop 0.02. CXR showed increased airspace disease in RML, likely pneumonia. COVID negative. Received Rocephin, Azithro in ED. Wells score 1.5, therefore low suspicion for PE. -weaned from HFNC to 2L NC -subjectively feeling better -Lactate continues to improve, will monitor -Procalcitonin increased from 1.33 to 9.65 overnight; will not escalate escalate abx at this time due to clinical improvement but will continue to monitor -will check urine antigen for legionella to evaluate if atypical organism coverage is needed -Continue Zosyn 4.5mg Q6H (11/28) Dry gangrene, right 1st toe -Patient endorses pain -Contacted general surgery, requested defer consultation until 12/01 Decreased urine output Overnight UOP less than 30cc/hr. Received fluid bolus overnight. Bladder scan this AM 167. Suspect due to volume depletion. -requested straight cath to get post void -increased mIVF to 1.5x, 150 cc/hr Hypernatremia likely 2/2 dehydration Hyperkalemia likely 2/2 dehydration, improving Initial Na 146, K 5.4, BUN 42. Likely due to chronic dehydration. Received 2.5L prior to admission. -K wnl this AM but Na remains elevated -Increased LR to 150 cc/hr -BMP in am to monitor -Hold home KCl Macrocytic anemia likely 2/2 poor PO intake Hgb 13.1, MCV 103. -F/u folate, B12 -CBC in am to monitor Long QT syndrome QTc was 497 on EKG -Montor on tele -Avoid qt prolonging medications Afib -NSR on EKG -Continue home meds DM2 -Mild SS -Continue home meds HTN -Hold anti-hypertensives due to low BP CKD3 Cr 1.07, appears at baseline. -Renally adjust meds Alzheimer's disease -Restart home meds Hx CVA/TIA -Restart home xarelto Anxiety Depression -Aware HLD -Restart home meds Code: Full per patient and family Prophylaxis: Home Xarelto PCP: CC Dispo: Admit to [facility], expected LOS > 48 hours Addendum - Attending - Attending Attestation Date/Time: 11/30/19 5088 I personally evaluated the patient and discussed the management with Dr. Shaikh. I agree with the History, Examination, Assessment and Plan documented above with any addition or exceptions noted below.
[2019-11-30] MEDS ORDERED: [UNRECOGNIZED DRUG - OTHER] PO SCH (09:00)
[2019-11-30] MEDS ORDERED: Non-Formulary Item 1 EACH (Zinc [Zinc] 50 MG Tablet) PO SCH (09:00)
[2019-11-30] MEDS ORDERED: AMINO ACIDS PO SCH (09:00)
[2019-11-30] MEDS ORDERED: PROTEIN HYDROLYS PO SCH (09:00)
[2019-11-30] MEDS: Multivit, Therapeutic 1 TAB PO SCH (09:35)
[2019-11-30] MEDS: Lactinex Tablet PO SCH (09:35)
[2019-11-30] MEDS: Ascorbic Acid 500 mg Chewable Tablet PO SCH ×2 (09:35→20:59)
[2019-11-30] MEDS: metFORMIN 500 MG TAB PO SCH ×2 (09:35→17:33)
[2019-11-30] MEDS: Zinc Sulfate 220 MG CAP PO SCH (09:35)
[2019-11-30] MEDS: Atorvastatin Calcium 10 MG TAB PO SCH (09:35)
[2019-11-30] MEDS: FLUoxetine HCl 20 MG CAP PO SCH (09:35)
[2019-11-30] MEDS: Cyanocobalamin (Vitamin B-12) 1,000 MCG TAB PO SCH (09:38)
[2019-11-30] MEDS: Amiodarone 200 MG TAB PO SCH ×3 (09:57→21:09)
[2019-11-30 11:08] LABS: Legionella Urinary Ag Negative (Negative); Strep pneumo Urine Ag NEGATIVE (NEGATIVE)
[2019-11-30] MEDS: Rivaroxaban 10 MG TAB PO SCH (17:33)
[2019-11-30] MEDS: Gabapentin 100 MG CAP PO SCH (20:59)
[2019-12-01] MEDS: Piperacillin/Tazobactam 4.5 GM in Sodium Chloride 0.9% 100 ML IVPB SCH ×4 (00:43→17:44)
[2019-12-01] MEDS: Lactinex Tablet PO SCH ×3 (00:43→21:28)
[2019-12-01 04:17] LABS: Anion Gap 16 mmol/L (10-20); BUN (Urea Nitrogen) 31 mg/dL (9.8-20.1); Calc. Creatinine Clearance 55 mL/min (70-130); Calcium 7.7 mg/dL (7.8-10.44); Carbon Dioxide 16 mmol/L (23-31); Chloride 117 mmol/L (98-107); Estimated GFR-MDRD 61; Glucose 67 mg/dL (80-115); Potassium 4.8 mmol/L (3.5-5.1); Sodium 144 mmol/L (136-145)
[2019-12-01 05:48] LABS: MDiff Complete? YES; Macrocytosis SLIGHT = 6-15 cells (100X) (0-5/hpf); Ovalocytes SLIGHT = 2-5 cells (100X) (0-1/hpf); Platelet Morphology Comment Appears Decreased
[2019-12-01 05:49] LABS: #Lymphocytes 0.9 thou/uL (1.20-3.40); #Monocytes 0.4 thou/uL (0.11-0.59); #Neutrophils 5.4 thou/uL (1.40-6.50); %Basophils 0.6 % (0.0-1.0); %Eosinophils 0.7 % (0.0-10.0); %Lymphocytes 13.4 % (21.0-51.0); %Neutrophils 79.3 % (42.0-75.0); Hemoglobin 9.3 g/dL (12.0-16.0); Mean Corpuscular Hemoglobin 35.2 pg (27.0-31.0); Mean Platelet Volume 7.4 fL (7.4-10.4); Platelet Count 115 thou/uL (130-400); RBC Distribution Width 12.4 % (11.5-14.5); Red Blood Cell (RBC) Count 2.65 mill/uL (4.20-5.40); White Blood Cell (WBC) Count 6.8 thou/uL (4.8-10.8)
--- NOTE | 2019-12-01 05:58 | PDOC.FM ---
- Subjective Subjective: Overnight slightly low glucose at 67, asymptomatic, patient given applesauce and tolerated well. Responses limited to yes/no and one word answers. Denies any new complaints this morning. She continues to have pain in her R great toe. Denies headache, SOB, n/v, abdominal pain. - Objective Vital Signs & Weight: Vital Signs (12 hours) Temp Pulse Ox 12/01/19 03:51 97.8 F 11/30/19 23:31 97.6 F 11/30/19 20:00 99 11/30/19 19:09 97.8 F Weight Admit Weight 58.513 kg Weight 58.513 kg Most Recent Monitor Data Heart Rate from ECG 51 NIBP 150/63 NIBP BP-Mean 92 Respiration from ECG 12 SpO2 98 I&O: 11/29/19 11/30/19 12/01/19 06:59 06:59 06:59 Intake Total 3186 Output Total 1100 Balance 2086 Result Diagrams: 12/01/19 03:17 12/01/19 03:17 EKG Reviewed by me: Yes (sinus bradycardia on tele monitoring) Phys Exam - Physical Examination Constitutional: NAD HEENT: moist MMs Respiratory: no wheezing, no rales Cardiovascular: no significant murmur bradycardia Gastrointestinal: soft, non-tender, no distention, positive bowel sounds Musculoskeletal: no edema pulses not easily palpable, necrotic tissue R great toe without drainage chronic motor and speech deficits Deviation from normal: flat affect Skin: no rash Deviation from normal: gangrenous changes to R toe as above Dx/Plan - Plan Plan: Acute hypoxic respiratory failure 2/2 CAP, improving Sat's 70s at NS, improved to 100% on HF 60L, 65%. WBC 5.1. Respiratory acidosis on abg, improved on repeat. Initial LA 5.6. Trop 0.02. CXR showed increased airspace disease in RML, likely pneumonia. COVID negative. Received Rocephin, Azithro in ED. Wells score 1.5, therefore low suspicion for PE. -Now weaned to room air -Urine legionella antigen negative, will not add atypical abx coverage -Continue Zosyn 4.5mg Q6H (11/28) -Procalcitonin down-trending Dry gangrene, right 1st toe -Patient endorses pain -Contacted general surgery, requested defer consultation until 12/01 Decreased urine output, improving Most likely due to volume depletion although may have some retention as well. Increased to 1.5x maintenance rate yesterday. Pre-void bladder scan 167 mL, PVR 140. -will decrease fluids to maintenance rate LR @ 100 -continue to monitor I/O Hypernatremia likely 2/2 dehydration, improving Hyperkalemia likely 2/2 dehydration, improving Initial Na 146, K 5.4, BUN 42. Likely due to chronic dehydration. Received 2.5L prior to admission. -K and Na wnl this AM -BMP in am to monitor -Hold home KCl -continue mIVF Macrocytic anemia likely 2/2 poor PO intake Hgb 13.1, MCV 103. -folate low, will start folic acid supplementation -CBC in am to monitor Long QT syndrome QTc was 497 on EKG. -Montor on tele -may continue amiodarone due to low risk of arrhythmia with prolonged QTc less than 600 that is due to amiodarone -avoid additonal QT prolonging drugs Afib -NSR on EKG -Continue home meds DM2 -Mild SS -Continue home meds HTN Anti-hypertensives initially held for low BP, although BP has now improved with 1.5x maintenance IVF. -will hold anti-hypertensives today and monitor -will decrease mIVF to LR @ 100 -consider resuming anti-hypertensive medication this afternoon or in AM pending BP CKD3 Cr 1.07, appears at baseline. -Renally adjust meds Alzheimer's disease -Restart home meds Hx CVA/TIA -Restart home xarelto Anxiety Depression -Aware HLD -Restart home meds Code: Full per patient and family Prophylaxis: Home Xarelto PCP: CC Dispo: Admit to [facility], expected LOS > 48 hours Addendum - Attending - Attending Attestation Date/Time: 12/01/19 [id number] I personally evaluated the patient and discussed the management with Dr. Shaikh. I agree with the History, Examination, Assessment and Plan documented above with any addition or exceptions noted below.
[2019-12-01] MEDS: Lactated Ringer's 1,000 ML IV SCH ×3 (08:41→21:47)
[2019-12-01] MEDS: Zinc Sulfate 220 MG CAP PO SCH (09:10)
[2019-12-01] MEDS: Ascorbic Acid 500 mg Chewable Tablet PO SCH ×2 (09:10→21:28)
[2019-12-01] MEDS: Cyanocobalamin (Vitamin B-12) 1,000 MCG TAB PO SCH (09:10)
[2019-12-01] MEDS: FLUoxetine HCl 20 MG CAP PO SCH (09:10)
[2019-12-01] MEDS: Atorvastatin Calcium 10 MG TAB PO SCH (09:10)
[2019-12-01] MEDS: Amiodarone 200 MG TAB PO SCH ×2 (09:10→21:29)
[2019-12-01] MEDS: Multivit, Therapeutic 1 TAB PO SCH (09:10)
[2019-12-01] MEDS: metFORMIN 500 MG TAB PO SCH ×2 (09:10→17:45)
[2019-12-01] MEDS: Rivaroxaban 10 MG TAB PO SCH (17:44)
[2019-12-01] MEDS: Gabapentin 100 MG CAP PO SCH (21:28)
[2019-12-01] MEDS: Amlodipine 5 MG TAB PO SCH (21:28)
[2019-12-01] MEDS ORDERED: hydrALAZINE 25 MG TAB PO SCH (21:30)
[2019-12-02] MEDS: Piperacillin/Tazobactam 4.5 GM in Sodium Chloride 0.9% 100 ML IVPB SCH ×3 (01:06→12:43)
[2019-12-02] MEDS ORDERED: Polyethylene Glycol 3350 17 GM Packet PO SCH (01:30)
[2019-12-02 04:09] LABS: #Eosinphils 0.1 thou/uL (0.0-0.7); #Monocytes 0.4 thou/uL (0.11-0.59); #Neutrophils 7.5 thou/uL (1.40-6.50); %Basophils 0.3 % (0.0-1.0); %Eosinophils 1.2 % (0.0-10.0); %Lymphocytes 11.1 % (21.0-51.0); %Monocytes 3.8 % (0.0-10.0); %Neutrophils 83.6 % (42.0-75.0); Hemoglobin 9.5 g/dL (12.0-16.0); Mean Corpuscular HGB CONC 32.9 g/dL (32.0-36.0); Mean Corpuscular Hemoglobin 33.2 pg (27.0-31.0); Mean Platelet Volume 6.9 fL (7.4-10.4); Platelet Count 155 thou/uL (130-400); RBC Distribution Width 11.8 % (11.5-14.5); Red Blood Cell (RBC) Count 2.86 mill/uL (4.20-5.40)
[2019-12-02 04:30] LABS: Anion Gap 13 mmol/L (10-20); BUN (Urea Nitrogen) 20 mg/dL (9.8-20.1); Calc. Creatinine Clearance 59 mL/min (70-130); Calcium 7.9 mg/dL (7.8-10.44); Carbon Dioxide 26 mmol/L (23-31); Chloride 105 mmol/L (98-107); Estimated GFR-MDRD 67; Glucose 93 mg/dL (80-115); Potassium 3.2 mmol/L (3.5-5.1); Sodium 141 mmol/L (136-145)
--- NOTE | 2019-12-02 05:30 | PDOC.FM ---
- Subjective Subjective: Patient says she slept well overnight. She reports right big toe pain. She denies headache, vision changes, chest pain, SOB, and abdominal pain. - Objective MAR Reviewed: Yes Vital Signs & Weight: Vital Signs (12 hours) Temp Pulse BP Pulse Ox 12/02/19 03:58 97.4 F L 12/02/19 00:52 98.1 F 12/01/19 21:47 66 181/84 H 12/01/19 21:28 66 181/84 H 12/01/19 20:00 95 12/01/19 19:15 98.7 F Weight Admit Weight 58.513 kg Weight 58.513 kg Most Recent Monitor Data Heart Rate from ECG 56 NIBP 112/56 NIBP BP-Mean 74 Respiration from ECG 16 SpO2 96 I&O: 11/30/19 12/01/19 12/02/19 06:59 06:59 06:59 Intake Total 3186 1565 Output Total 1100 3475 Balance 2085 -1909 Result Diagrams: 12/02/19 03:33 12/02/19 03:33 Phys Exam - Physical Examination Constitutional: NAD HEENT: moist MMs, sclera anicteric Neck: supple, full ROM Respiratory: no wheezing, clear to auscultation bilateral Cardiovascular: RRR, no significant murmur Gastrointestinal: soft, positive bowel sounds Musculoskeletal: no edema Neurological: moves all 4 limbs Speaks at 1-2 work phrases, at baseline Psychiatric: normal affect, A&O x 3 Deviation from normal: Dry gangrene, right 1st toe unchanged from admission Dx/Plan - Plan Plan: Acute hypoxic respiratory failure 2/2 CAP, improving In ED, sat's 70s at NH, improved to 100% on HF 60L, 65%. WBC 5.1. Respiratory acidosis on abg, improved on repeat. Initial LA 5.6. Trop 0.02. CXR showed increased airspace disease in RML, likely pneumonia. COVID negative. Received Rocephin, Azithro in ED. Wells score 1.5, therefore low suspicion for PE. -Now weaned to room air -Urine legionella antigen negative, will not add atypical abx coverage -Continue Zosyn 4.5mg Q6H (11/28) -Procalcitonin down-trending Dry gangrene, right 1st toe -Patient endorses pain -Contacted general surgery, requested defer consultation until 12/01. Will re- consult today. Decreased urine output, improved Most likely due to volume depletion although may have some retention as well. Received LR maintenance fluids yesterday. Pre-void bladder scan 167 mL, PVR 140. -continue to monitor I/O Hypokalemia Home KCl held upon admission to due elevated K at 5.4 likely due to chronic dehydration. K 3.2 today. -Restart home KCl Macrocytic anemia likely 2/2 poor PO intake Hgb 13.1, MCV 103 in ED. -folate low, started folic acid supplementation Long QT syndrome QTc was 497 on EKG in ED. -Montor on tele -Continue amiodarone due to low risk of arrhythmia with prolonged QTc less than 600 that is due to amiodarone -avoid additional QT prolonging drugs Afib -NSR on EKG -Continue home meds DM2 -Mild SS -Continue home meds HTN Anti-hypertensives initially held for low BP in ED. Improved after IV fluids. Episode of 180s systolic overnight. LR discontinued. Given hydralazine 50 PO with improvement. -Continue home meds -Holding Metoprolol due to bradycardia (HR 50s) CKD3 Cr 1.07 in ED, appears at baseline. -Renally adjust meds Alzheimer's disease -Continue home meds Hx CVA/TIA -Continue home xarelto Anxiety Depression -Aware HLD -Continue home meds Code: Full per patient and family Prophylaxis: Home Xarelto PCP: CC Dispo: [place] pending further medical management
[2019-12-02] MEDS: metFORMIN 500 MG TAB PO SCH (09:19)
[2019-12-02] MEDS: Amlodipine 5 MG TAB PO SCH ×2 (09:19→21:29)
[2019-12-02] MEDS: FLUoxetine HCl 20 MG CAP PO SCH (09:19)
[2019-12-02] MEDS: Cyanocobalamin (Vitamin B-12) 1,000 MCG TAB PO SCH (09:19)
[2019-12-02] MEDS: Potassium Chloride 20 MEQ TAB PO SCH ×2 (09:19→21:28)
[2019-12-02] MEDS: Atorvastatin Calcium 10 MG TAB PO SCH (09:19)
[2019-12-02] MEDS: Zinc Sulfate 220 MG CAP PO SCH (09:19)
[2019-12-02] MEDS: Amiodarone 200 MG TAB PO SCH ×2 (09:20→21:29)
[2019-12-02] MEDS: hydrALAZINE 25 MG TAB PO SCH ×3 (09:20→21:28)
[2019-12-02] MEDS: Lactinex Tablet PO SCH ×2 (09:20→21:30)
[2019-12-02] MEDS: Ascorbic Acid 500 mg Chewable Tablet PO SCH ×2 (09:20→21:28)
[2019-12-02] MEDS: Multivit, Therapeutic 1 TAB PO SCH (09:20)
[2019-12-02] MEDS: Polyethylene Glycol 3350 17 GM Packet PO SCH (09:21)
--- NOTE | 2019-12-02 12:49 | PRG ---
DATE OF SERVICE: 12/02/2019 Ms. Sorenson is lady admitted with hypoxic respiratory failure and pneumonia. She was noted to have a black right great toe and there is some blackness also on the dorsum of her left great toe. These seem consistent with dry gangrene due to peripheral artery disease. Her DP pulse is not felt at all. Her popliteal pulses felt easily behind each knee. We will consult Vascular Surgery for an opinion and will likely proceed with either ABIs or CTA of the lower extremities depending on input from the Surgery Service. Job ID: [id number]
[2019-12-02] MEDS ORDERED: Magnesium Sulfate 2 GM in Sodium Chloride 0.9% 100 ML IVPB SCH (13:00)
[2019-12-02] MEDS ORDERED: Magnesium 2 GM/50 ML 2 GM in Premix Bag 1 BAG IVPB SCH (13:15)
[2019-12-02] MEDS: Piperacillin/Tazobactam 3.375 GM in Sodium Chloride 0.9% 100 ML IVPB SCH ×2 (13:46→21:27)
[2019-12-02 16:13] LABS: Hematocrit 27.8 % (34.0-46.6); RBC Folate Test Component 867 ng/mL (>498)
[2019-12-02] MEDS: Rivaroxaban 10 MG TAB PO SCH (17:36)
[2019-12-02] MEDS: Gabapentin 100 MG CAP PO SCH (21:30)
[2019-12-03 04:58] LABS: #Eosinphils 0.1 thou/uL (0.0-0.7); #Monocytes 0.3 thou/uL (0.11-0.59); #Neutrophils 4.9 thou/uL (1.40-6.50); %Basophils 0.4 % (0.0-1.0); %Lymphocytes 15.1 % (21.0-51.0); %Monocytes 5.4 % (0.0-10.0); %Neutrophils 77.1 % (42.0-75.0); Hemoglobin 9.4 g/dL (12.0-16.0); Mean Corpuscular HGB CONC 32.4 g/dL (32.0-36.0); Mean Platelet Volume 6.7 fL (7.4-10.4); Platelet Count 137 thou/uL (130-400); RBC Distribution Width 11.9 % (11.5-14.5); Red Blood Cell (RBC) Count 2.85 mill/uL (4.20-5.40); White Blood Cell (WBC) Count 6.3 thou/uL (4.8-10.8)
[2019-12-03 05:14] LABS: Anion Gap 12 mmol/L (10-20); BUN (Urea Nitrogen) 15 mg/dL (9.8-20.1); Calc. Creatinine Clearance 63 mL/min (70-130); Calcium 7.7 mg/dL (7.8-10.44); Carbon Dioxide 27 mmol/L (23-31); Chloride 106 mmol/L (98-107); Estimated GFR-MDRD 72; Glucose 79 mg/dL (80-115); Potassium 3.6 mmol/L (3.5-5.1); Sodium 141 mmol/L (136-145)
--- NOTE | 2019-12-03 05:34 | PDOC.FM ---
- Subjective Subjective: Patient says she is feeling "ok." She denies headache, chest pain, SOB, nausea, abdominal pain and toe pain. - Objective MAR Reviewed: Yes Vital Signs & Weight: Vital Signs (12 hours) Temp Pulse Resp BP BP Pulse Ox 12/03/19 03:23 97.9 F 57 L 15 124/61 96 12/02/19 21:29 68 152/72 H 12/02/19 21:28 68 152/72 H 12/02/19 20:21 98.3 F 68 18 152/72 H 96 Weight Admit Weight 58.513 kg Weight 58.513 kg Most Recent Monitor Data Heart Rate from ECG 66 NIBP 141/76 NIBP BP-Mean 97 Respiration from ECG 20 SpO2 94 I&O: 12/01/19 12/02/19 12/03/19 06:59 06:59 06:59 Intake Total 3186 1565 210 Output Total 1100 3475 275 Balance 2085 Result Diagrams: 12/03/19 04:31 12/03/19 04:31 Phys Exam - Physical Examination Constitutional: NAD HEENT: moist MMs, sclera anicteric Neck: supple, full ROM Respiratory: no wheezing, clear to auscultation bilateral Cardiovascular: RRR, no significant murmur Gastrointestinal: soft, positive bowel sounds Musculoskeletal: no edema Popliteal pulses present. No dorsal pedis pulse palpated Neurological: moves all 4 limbs Psychiatric: normal affect Skin: no rash Deviation from normal: Dry gangrene, R 1st toe. Erythema, L 1st toe Dx/Plan - Plan Plan: Acute hypoxic respiratory failure, resolved 2/2 CAP, improving WBC 5.1. Respiratory acidosis on abg, improved on repeat. Initial LA 5.6. Trop 0.02. CXR showed increased airspace disease in RML, likely pneumonia. COVID negative. Received Rocephin, Azithro in ED. Wells score 1.5, therefore low suspicion for PE. -Now weaned to room air -Urine legionella antigen negative, will not add atypical abx coverage -Zosyn 4.5mg Q6H (11/28). Will transition to Augmentin on discharge. -Procalcitonin downtrended Dry gangrene, right 1st toe Likely PVD Popliteal pulses intact, no dorsalis pedis pulses noted -Patient endorses pain -General surgery, Dr. Gilbert, consulted. Patient has been assessed by him previously. AKA is only option but patient repeatedly declined. -Vascular surgery consulted during previous admission - revascularization not appropriate Hypokalemia, resolved Home KCl held upon admission to due elevated K at 5.4 likely due to chronic dehydration. K 3.6 today. -Continue home KCl Macrocytic anemia likely 2/2 poor PO intake Hgb 13.1, MCV 103 in ED. -folate low, started folic acid supplementation Long QT syndrome QTc was 497 on EKG in ED. -Montor on tele -Continue amiodarone due to low risk of arrhythmia with prolonged QTc less than 600 that is due to amiodarone -avoid additional QT prolonging drugs Afib -NSR on EKG -Continue home meds DM2 -Mild SS -Continue home meds HTN -Continue home meds -Consider restarting Metoprolol once bradycardia resolves CKD3 Cr 1.07 in ED, appears at baseline. -Renally adjust meds Alzheimer's disease -Continue home meds Hx CVA/TIA -Continue home xarelto Anxiety Depression -Aware HLD -Continue home meds Code: Full per patient and family Prophylaxis: Home Xarelto PCP: CC Dispo: [place] pending further medical management
[2019-12-03] MEDS: Piperacillin/Tazobactam 3.375 GM in Sodium Chloride 0.9% 100 ML IVPB SCH ×3 (06:00→22:14)
[2019-12-03] MEDS: Polyethylene Glycol 3350 17 GM Packet PO SCH (10:15)
[2019-12-03] MEDS: Zinc Sulfate 220 MG CAP PO SCH (10:15)
[2019-12-03] MEDS: Ascorbic Acid 500 mg Chewable Tablet PO SCH ×2 (10:16→22:14)
[2019-12-03] MEDS: Amiodarone 200 MG TAB PO SCH ×2 (10:16→22:13)
[2019-12-03] MEDS: Calcium Carbonate 600 MG TAB PO SCH (10:16)
[2019-12-03] MEDS: Multivit, Therapeutic 1 TAB PO SCH (10:17)
[2019-12-03] MEDS: FLUoxetine HCl 20 MG CAP PO SCH (10:17)
[2019-12-03] MEDS: Lactinex Tablet PO SCH ×2 (10:17→22:13)
[2019-12-03] MEDS: Potassium Chloride 20 MEQ TAB PO SCH ×2 (10:18→22:13)
[2019-12-03] MEDS: hydrALAZINE 25 MG TAB PO SCH ×3 (10:18→22:13)
[2019-12-03] MEDS: Amlodipine 5 MG TAB PO SCH ×2 (10:18→22:13)
[2019-12-03] MEDS: Cyanocobalamin (Vitamin B-12) 1,000 MCG TAB PO SCH (10:18)
[2019-12-03] MEDS: Atorvastatin Calcium 10 MG TAB PO SCH (10:18)
[2019-12-03] MEDS: metFORMIN 500 MG TAB PO SCH (10:19)
--- NOTE | 2019-12-03 12:18 | PQF ---
CLINICAL DOCUMENTATION CLARIFICATION FORM: Dear Dr. Denny/Attending Dr. Collier Date: 12/03/2019; 12/04/2019; 12/05/2019 Please exercise your independent, professional judgment in responding to the clarification form. Clinical indicators are provided on the bottom of this form for your review. Please check appropriate box(es): [ X ] Sepsis due to: RML pneumonia [ ] Severe sepsis with associated acute organ dysfunction: [ ] Acute Respiratory Failure [ ] Additional/Other: please specify: [ ] Septic Shock [ ] Localized infection without sepsis [ ] Other diagnosis [ ] Unable to determine In addition, please specify: Present on Admission (POA): [ X ] Yes [ ] No [ ] Unable to determine For continuity of documentation, please document condition throughout progress notes and discharge summary. Thank You. CLINICAL INDICATORS - SIGNS / SYMPTOMS / LABS / RESULTS AND LOCATION IN *ER Record 11/28: Doctor notes: BP dropped to 70s. Pt admitted with septic shock and respiratory failure likely 2/2 pneumonia. She was initially hypotensive. Her BP improved with bolus of NS. She met criteria for septic shock with hypotension, sepsis from pneumonia, lactic acid over 4. *H&P 11/28 ([facility]) HPI: Per ED report, pt was noted to have SOB with sat's in 70s at the [place]. WBC 5.1 Respiratory acidosis on abg. LA 5.6. CXR showed increased airspace disease in RML, Likely pneumonia A/P: Acute hypoxic respiratory failure 2/2 CAP *11/29 pn ([facility]) Subjective: Overnight pt had low SBP to the 80s, she was given 500cc bolus And BP has been improved to 90-100s since then. RISK FACTORS / RESULTS AND LOCATION IN *H&P 11/28 ([facility])PMH: multiple CVAs and TIAs, Alzheimer disease, Afib, HTN, DM2, CKD 3 A/P: Acute hypoxic respiratory failure 2/2 CAP TREATMENTS / RESULTS AND LOCATION IN *H&P 11/28 ([facility]) Upper level A/P: Continue HFNC and titrate down as tolerated S/P azithromycin and Rocephin in the ER, will continue with Zosyn as monotherapy S/P 3L NS in ER *MAR: Order 12/01: Zosyn 3/375 gm IV q8 hr Thank you, Cielo Rich RN, BSN [email or web address] This is a permanent part of the Medical Record [facility]
--- NOTE | 2019-12-03 16:14 | PRG ---
DATE OF SERVICE: 12/03/2019 ADDENDUM: This is an addendum to the note of Dr. Carolyn Denny. I have examined Gurpreet Yas. I agree with the assessment and plan of Dr. Carolyn Denny. Job ID: [id number]
[2019-12-03] MEDS: Rivaroxaban 10 MG TAB PO SCH (17:21)
[2019-12-03] MEDS: Gabapentin 100 MG CAP PO SCH (22:14)
[2019-12-04 05:35] LABS: Anion Gap 14 mmol/L (10-20); BUN (Urea Nitrogen) 13 mg/dL (9.8-20.1); Calc. Creatinine Clearance 59 mL/min (70-130); Calcium 7.7 mg/dL (7.8-10.44); Carbon Dioxide 25 mmol/L (23-31); Chloride 106 mmol/L (98-107); Estimated GFR-MDRD 67; Glucose 81 mg/dL (80-115); Potassium 3.6 mmol/L (3.5-5.1); Sodium 141 mmol/L (136-145)
--- NOTE | 2019-12-04 05:49 | PDOC.FM ---
- Subjective Subjective: Patient says she has no questions or concerns. She denies headache, vision changes, chest pain, SOB, nausea and abdominal pain. She is ready to go back to the [place]. - Objective MAR Reviewed: Yes Vital Signs & Weight: Vital Signs (12 hours) Temp Pulse Resp BP BP Pulse Ox 12/04/19 03:29 98.9 F 73 18 105/52 L 92 L 12/03/19 22:13 64 128/62 12/03/19 21:15 97.9 F 64 16 128/62 94 L Weight Admit Weight 58.513 kg Weight 58.513 kg Most Recent Monitor Data Heart Rate from ECG 66 NIBP 141/76 NIBP BP-Mean 97 Respiration from ECG 20 SpO2 94 I&O: 12/02/19 12/03/19 12/04/19 06:59 06:59 06:59 Intake Total 1565 360 600 Output Total 3475 425 Balance -1910 -65 600 Result Diagrams: 12/03/19 04:31 12/04/19 04:33 Phys Exam - Physical Examination Constitutional: NAD HEENT: moist MMs, sclera anicteric Neck: supple, full ROM Respiratory: no wheezing, clear to auscultation bilateral Cardiovascular: RRR, no significant murmur Gastrointestinal: soft, positive bowel sounds Musculoskeletal: no edema Neurological: moves all 4 limbs Psychiatric: normal affect Deviation from normal: R 1st toe dry gangrene. Erythema to L 1st toe. Unchanged. Dx/Plan - Plan Plan: Acute hypoxic respiratory failure, resolved 2/2 CAP, improving In ED respiratory acidosis on abg, improved on repeat. Initial LA 5.6. Trop 0.02. CXR showed increased airspace disease in RML, likely pneumonia. COVID negative. Received Rocephin, Azithro in ED. Wells score 1.5, therefore low suspicion for PE. -Sat'ing well on room air -Urine legionella antigen negative therefore no atypical abx coverage -Zosyn 4.5mg Q6H (11/28). Will transition to Augmentin on discharge. Dry gangrene, right 1st toe Likely PVD Popliteal pulses intact, no dorsalis pedis pulses noted -General surgery, Dr. Gilbert, consulted. Patient has been assessed by him previously. AKA is only option but patient repeatedly declined. -Vascular surgery consulted during previous admission - revascularization not appropriate Macrocytic anemia likely 2/2 poor PO intake Hgb 13.1, MCV 103 in ED. -folate low, started folic acid supplementation Long QT syndrome QTc was 497 on EKG in ED. -Montor on tele -Continue amiodarone due to low risk of arrhythmia with prolonged QTc less than 600 that is due to amiodarone -avoid additional QT prolonging drugs Afib -NSR on EKG -Continue home meds DM2 -Mild SS -Continue home meds HTN -Continue home meds -Consider restarting Metoprolol once bradycardia resolves CKD3 Cr 1.07 in ED, appears at baseline. -Renally adjust meds Alzheimer's disease -Continue home meds Hx CVA/TIA -Continue home xarelto Anxiety Depression -Aware HLD -Continue home meds Code: Full per patient and family Prophylaxis: Home Xarelto PCP: CC Dispo: [place] pending insurance approval
[2019-12-04] MEDS: Piperacillin/Tazobactam 3.375 GM in Sodium Chloride 0.9% 100 ML IVPB SCH ×3 (06:36→21:44)
[2019-12-04] MEDS: hydrALAZINE 25 MG TAB PO SCH ×3 (08:53→21:45)
[2019-12-04] MEDS: Atorvastatin Calcium 10 MG TAB PO SCH (08:54)
[2019-12-04] MEDS: Multivit, Therapeutic 1 TAB PO SCH (08:54)
[2019-12-04] MEDS: Calcium Carbonate 600 MG TAB PO SCH (08:54)
[2019-12-04] MEDS: Zinc Sulfate 220 MG CAP PO SCH (08:54)
[2019-12-04] MEDS: FLUoxetine HCl 20 MG CAP PO SCH (08:54)
[2019-12-04] MEDS: Lactinex Tablet PO SCH ×2 (08:55→21:47)
[2019-12-04] MEDS: Amiodarone 200 MG TAB PO SCH ×2 (08:55→21:44)
[2019-12-04] MEDS: Amlodipine 5 MG TAB PO SCH ×2 (08:55→21:47)
[2019-12-04] MEDS: metFORMIN 500 MG TAB PO SCH (08:56)
[2019-12-04] MEDS: Potassium Chloride 20 MEQ TAB PO SCH ×2 (08:56→21:46)
[2019-12-04] MEDS: Ascorbic Acid 500 mg Chewable Tablet PO SCH ×2 (08:56→21:44)
[2019-12-04] MEDS: Cyanocobalamin (Vitamin B-12) 1,000 MCG TAB PO SCH (08:58)
[2019-12-04] MEDS: Polyethylene Glycol 3350 17 GM Packet PO SCH (09:07)
--- NOTE | 2019-12-04 12:18 | PRG ---
DATE OF SERVICE: 12/04/2019 Ms. Sorenson is sitting quietly in bed, in no distress. She is currently getting treatment for her pneumonia, complicated by acute hypoxic respiratory failure. From a clinical standpoint, however, she is much improved from her admission status. When ready for discharge, we will continue treatment as an oral treatment with Augmentin. Job ID: [id number]
[2019-12-04] MEDS: Rivaroxaban 10 MG TAB PO SCH (17:19)
[2019-12-04] MEDS: Gabapentin 100 MG CAP PO SCH (21:47)
[2019-12-05 05:28] LABS: Anion Gap 10 mmol/L (10-20); BUN (Urea Nitrogen) 12 mg/dL (9.8-20.1); Calc. Creatinine Clearance 58 mL/min (70-130); Calcium 7.9 mg/dL (7.8-10.44); Carbon Dioxide 28 mmol/L (23-31); Chloride 106 mmol/L (98-107); Estimated GFR-MDRD 64; Glucose 77 mg/dL (80-115); Potassium 3.7 mmol/L (3.5-5.1); Sodium 140 mmol/L (136-145)
[2019-12-05] MEDS: Piperacillin/Tazobactam 3.375 GM in Sodium Chloride 0.9% 100 ML IVPB SCH (05:50)
--- NOTE | 2019-12-05 06:01 | PDOC.FM ---
- Subjective Subjective: The patient reports buttock pain related to chronic ulcer. She denies headache, vision changes, chest pain, SOB, nausea and abdominal pain. She required soft restraints overnight due to attempting to remove lines. When asked about the event, the patient affirms that she remembers removing the restraints. She states that she is ready to go home. - Objective MAR Reviewed: Yes Vital Signs & Weight: Vital Signs (12 hours) Temp Pulse Resp BP BP Pulse Ox 12/05/19 04:00 97.9 F 64 20 132/68 97 12/04/19 21:50 98.4 F 66 16 131/65 94 L 12/04/19 21:47 66 131/65 12/04/19 21:45 66 131/65 Weight Admit Weight 58.513 kg Weight 60.282 kg Most Recent Monitor Data Heart Rate from ECG 66 NIBP 141/76 NIBP BP-Mean 97 Respiration from ECG 20 SpO2 94 I&O: 12/03/19 12/04/19 12/05/19 06:59 06:59 06:59 Intake Total 360 700 577 Output Total 425 Balance -65 700 577 Result Diagrams: 12/03/19 04:31 12/05/19 04:17 Phys Exam - Physical Examination Constitutional: NAD Soft hand restraints in place HEENT: moist MMs, sclera anicteric Neck: full ROM Respiratory: no wheezing, clear to auscultation bilateral Cardiovascular: RRR, no significant murmur Gastrointestinal: soft, positive bowel sounds Musculoskeletal: no edema, pulses present Neurological: moves all 4 limbs Psychiatric: normal affect Deviation from normal: Dry gangrene, R 1st toe. Erythema, L 1st toe, unchanged. Dx/Plan - Plan Plan: Acute hypoxic respiratory failure, resolved 2/2 CAP, improving In ED respiratory acidosis on abg, improved on repeat. Initial LA 5.6. Trop 0.02. CXR showed increased airspace disease in RML, likely pneumonia. COVID negative. Received Rocephin, Azithro in ED. Wells score 1.5, therefore low suspicion for PE. -Sat'ing well on room air -Urine legionella antigen negative therefore no atypical abx coverage -Zosyn 4.5mg Q6H (11/28-12/02). Start Augmentin PO today in anticipation of discharge. Dry gangrene, right 1st toe Likely PVD Popliteal pulses intact, no dorsalis pedis pulses noted -General surgery, Dr. Gilbert, consulted. Patient has been assessed by him previously. AKA is only option but patient repeatedly declined. -Vascular surgery consulted during previous admission - revascularization not appropriate Macrocytic anemia likely 2/2 poor PO intake Hgb 13.1, MCV 103 in ED. -folate low, started folic acid supplementation Long QT syndrome QTc was 497 on EKG in ED. -Montor on tele -Continue amiodarone due to low risk of arrhythmia with prolonged QTc less than 600 that is due to amiodarone -avoid additional QT prolonging drugs Afib -Continue home meds DM2 -Mild SS -Continue home meds HTN -Continue home meds -Holding metoprolol due to persistent bradycardia on EKG and tele CKD3 Cr 1.07 in ED, appears at baseline. -Renally adjust meds Alzheimer's disease -Continue home meds Hx CVA/TIA -Continue home xarelto Anxiety Depression -Aware HLD -Continue home meds Chronic sacral ulcer -Treated by wound care -Frequent turning Code: Full per patient and family Prophylaxis: Home Xarelto PCP: CC Dispo: [place] pending insurance approval
[2019-12-05] MEDS ORDERED: Amoxicillin/Potassium Clav 875 MG TAB PO SCH (09:00)
[2019-12-05] MEDS: Lactinex Tablet PO SCH (09:15)
[2019-12-05] MEDS: Ascorbic Acid 500 mg Chewable Tablet PO SCH (09:15)
[2019-12-05] MEDS: FLUoxetine HCl 20 MG CAP PO SCH (09:15)
[2019-12-05] MEDS: Atorvastatin Calcium 10 MG TAB PO SCH (09:15)
[2019-12-05] MEDS: Calcium Carbonate 600 MG TAB PO SCH (09:16)
[2019-12-05] MEDS: hydrALAZINE 25 MG TAB PO SCH (09:16)
[2019-12-05] MEDS: Potassium Chloride 20 MEQ TAB PO SCH (09:16)
[2019-12-05] MEDS: Zinc Sulfate 220 MG CAP PO SCH (09:17)
[2019-12-05] MEDS: Cyanocobalamin (Vitamin B-12) 1,000 MCG TAB PO SCH (09:17)
[2019-12-05] MEDS: Amiodarone 200 MG TAB PO SCH (09:19)
[2019-12-05] MEDS: Multivit, Therapeutic 1 TAB PO SCH (09:19)
[2019-12-05] MEDS: Polyethylene Glycol 3350 17 GM Packet PO SCH (09:20)
[2019-12-05] MEDS: Amlodipine 5 MG TAB PO SCH (09:21)
[2019-12-05] MEDS: metFORMIN 500 MG TAB PO SCH (09:41)
--- NOTE | 2019-12-05 11:47 | PRG ---
DATE OF SERVICE: 12/05/2019 ADDENDUM: This is an addendum to the note of Dr. Carolyn Denny. Ms. Sorenson is looking and feeling fine. Placement has been arranged, and she will be discharged today. She completes her course of antibiotics for pneumonia today. Job ID: [id number]
[2019-12-05 12:48] VITALS: BP 120/60; TEMP 98.5
[2019-12-05 13:00] VITALS: BMI 21.4
--- NOTE | 2019-12-06 15:06 | DIS ---
DATE OF ADMISSION: 11/29/2019 DATE OF DISCHARGE: 12/05/2019 RESIDENT: Carolyn Denny MD ADMITTING ATTENDING: Jeff Wilder MD DISCHARGE ATTENDING: Rc Collier MD CONSULTS: None. PROCEDURES: None. PRIMARY DIAGNOSES: 1. Acute hypoxic respiratory failure now resolved secondary to community- acquired pneumonia. 2. Hypernatremia, resolved. 3. Hyperkalemia, resolved. 4. Dry gangrene of the right first toe. 5. Hypocalcemia SECONDARY DIAGNOSES: Macrocytic anemia secondary to poor p.o. intake, long QT syndrome, atrial fibrillation, diabetes type 2, hypertension, chronic kidney disease stage 3, Alzheimer disease, history of cerebrovascular accident, history of transient ischemic attack, anxiety, depression, hyperlipidemia. DISCHARGE MEDICATIONS: 1. Vitamin B12 500 mcg p.o. daily. 2. Amiodarone 100 mg p.o. b.i.d. 3. Donepezil 20 mg p.o. at bedtime. 4. Floranex one tab p.o. b.i.d. 5. Fluoxetine 20 mg p.o. daily. 6. Metformin 500 mg p.o. b.i.d. 7. Multivitamin one capsule p.o. daily. 8. Amlodipine 5 mg p.o. q.a.m. 9. Vitamin C 500 mg p.o. b.i.d. 10. Zinc 50 mg p.o. daily. 11. Aggrenox 1 capsule p.o. b.i.d. 12. Hydralazine 50 mg p.o. t.i.d. 13. Atorvastatin 40 mg p.o. daily. 14. Calcium carbonate 1200 mg p.o. daily. 15. Gabapentin 100 mg p.o. at bedtime. 16. Potassium chloride 20 mEq p.o. b.i.d. 17. Xarelto 20 mg p.o. daily. DISCONTINUED MEDICATIONS: Zosyn 4.5 mg. HISTORY OF PRESENT ILLNESS: The patient is a 69-year-old female with a history of multiple CVAs and TIAs, Alzheimer's disease and atrial fibrillation, who presented to the ED with reports of hypoxia at [facility]. The patient was found to be saturating [facility]s [facility] and placed on nasal canula. She was given Rocephin and azithromycin in ED. Chest x-ray showed a right middle lobe pneumonia. The patient was started on Zosyn 4.5 mg upon admission. Her respiratory status continued to improve with O2 saturation 100% on room air. Patient has a history of dry gangrene of the right first toe. She was previously evaluated by Dr. Gilbert, General Surgery, who noted AKA as only treatment. The patient and her son do not want this. Vascular Surgery was also previously consulted and stated that revascularization was not appropriate in the patient. The patient was deemed stable for discharge on 12/05/19. She was discharged home on atorvastatin due to a history of CVAs and TIAs. She was also discharged home on calcium carbonate due to consistent hypocalcemia inpatient. Calcium level should be checked in 1 week. DISPOSITION: Stable. DISCHARGE INSTRUCTIONS: LOCATION: [facility]. DIET: Heart healthy. ACTIVITY: As tolerated with assistance. FOLLOWUP: Follow up with PCP in [place] within 1 week. Calcium level will need to be checked at this time. Job ID: [id number] MTDD
== END 2019-12-05 14:48 | DRG 871 ==
LOC: ERS 09:10 → IMCU/EMU 12:07 → 2NO 12-02 18:06
PROVIDERS: ADMIT Family Medicine; ATTEND Family Medicine
DX: A41.9 Sepsis, unspecified organism (principal); J18.9 Pneumonia, unspecified organism; J96.01 Acute respiratory failure with hypoxia; E11.52 Type 2 diabetes mellitus with diabetic peripheral angiopathy with gangrene; I96 Gangrene, not elsewhere classified; E87.0 Hyperosmolality and hypernatremia; Z20.828 Contact with and (suspected) exposure to other viral communicable diseases; I48.91 Unspecified atrial fibrillation; E78.2 Mixed hyperlipidemia; E78.5 Hyperlipidemia, unspecified; G30.9 Alzheimer's disease, unspecified; F02.80 Dementia in other diseases classified elsewhere, unspecified severity, without behavioral disturbance, psychotic disturbance, mood disturbance, and anxiety; F41.9 Anxiety disorder, unspecified; F32.9 Major depressive disorder, single episode, unspecified; E11.22 Type 2 diabetes mellitus with diabetic chronic kidney disease; I12.9 Hypertensive chronic kidney disease with stage 1 through stage 4 chronic kidney disease, or unspecified chronic kidney disease; E11.36 Type 2 diabetes mellitus with diabetic cataract; H26.9 Unspecified cataract; E87.5 Hyperkalemia; E86.0 Dehydration; N18.30 Chronic kidney disease, stage 3 unspecified; D53.9 Nutritional anemia, unspecified; I45.81 Long QT syndrome; L98.419 Non-pressure chronic ulcer of buttock with unspecified severity; Z86.73 Personal history of transient ischemic attack (TIA), and cerebral infarction without residual deficits; Z78.1 Physical restraint status; Z74.01 Bed confinement status; Z88.8 Allergy status to other drugs, medicaments and biological substances; Z79.899 Other long term (current) drug therapy; Z79.01 Long term (current) use of anticoagulants; Z79.82 Long term (current) use of aspirin; Z79.84 Long term (current) use of oral hypoglycemic drugs
CPT/HCPCS: 36415; 36416; 51701; 71045; 80048; 80053; 81003; 81015; 82607; 82746; 82747; 82805; 83036; 83605; 83735; 84145; 84484; 85025; 86140; 87040; 87086; 87449; 87899; 93005; 94760; 96365; 96366; 99292; J0456; J0696; J2543; J3475; J3490; J7120; U0002

== ENCOUNTER 2020-01-08 18:57 | Emergency (ER) | payer MEDICARE, OTHER ==
--- NOTE | 2020-01-08 20:27 | CT ---
CT HEAD WITHOUT IV CONTRAST COMPARISON: 04/14/2017 HISTORY: Injury after falling out of bed. Patient on blood thinners. Pinpoint pupils. TECHNIQUE: Axial CT imaging at 5 mm intervals from vertex through skull base without contrast FINDINGS: There is decreased attenuation in the periventricular white matter which is nonspecific but likely re flective of chronic small vessel ischemic changes. Again noted are remote lacunar infarctions in each basal ganglia as well as in each thalamus There is mild cerebral and cerebellar volume loss. The ventricular system is normal in size, shape, a nd position for the degree of sulcal atrophy. There is no evidence of an acute infarction, hemorrhage, mass effect, or midline shift. Skull base has a normal CT appearance. There is almost complete opacification of the right frontal sinus. Minimal mucosal thickening is seen at the right ethmoidal air cells. Visualized mastoid air cells are clear Osseous structures appear intact. No depressed calvarial fracture is seen. IMPRESSION: 1. No acute intracranial abnormality demonstrated. 2. Stable chronic changes.
--- NOTE | 2020-01-08 20:33 | CT ---
EXAM: CT cervical spine PROVIDED CLINICAL HISTORY: Injury after falling off bed. Pinpoint pupils. Patient fell onto face. TECHNIQUE: Contiguous axial CT images are obtained through the cervical spine from the skull base to the T1-2 le christine. Sagittal and coronal reformatted images are provided. COMPARISON: 10/09/2016 FINDINGS: There is straightening of normal cervical lordotic curvature which may related to muscle spasm or pos itioning. There is no evidence of a fracture or traumatic subluxation. Degenerative changes are again seen throughout the cervical spine which are unchanged compared to the prior exam. Degenerative changes are greatest at the C4-5 and C6-7 levels where there are disc osteophyte complexes present resulting in moderate right-sided neural foraminal narrowing at these le vels. There is mild narrowing of the central spinal canal at these levels with encroachment on the anterior aspect of the spinal cord at these levels. No prevertebral soft tissue swelling apparent. Visualized lung apices appear clear. There is a stable small subcentimeter hypodense nodule left lobe of the thyroid gland. Vascular calcifications are again seen in the carotid arteries appear IMPRESSION: No evidence for fracture or traumatic subluxation.
--- NOTE | 2020-01-08 20:44 | CT ---
EXAM: CT Pelvis WO Con PROVIDED CLINICAL HISTORY: Injury after a fall. Patient on blood thinners. COMPARISON: None FINDINGS: Osteopenia is present. There is bilateral hip osteoarthritis. Sclerosis is seen along the superolater al medial aspect of each femoral head without lucency seen in this region or evidence of collapse. Developing avascular necrosis cannot be excluded. Degenerative changes are seen in the lower lumbar spine and at the pubic symphysis as well as involvi ng each sacroiliac joint. No fracture or dislocation is identified. There is a large amount of retained fecal material seen within the rectum with mild thickening of the wall of the rectum and mild adjacent perirectal inflammatory stranding. Findings are suggestive of fecal impaction in this region. Stercoral colitis cannot be entirely excluded. A few scattered colonic diverticula are seen in the visualized ascending colon. Dense vascular calcifications are seen throughout the pelvis and proximal lower extremities. There is atrophy of the paraspinous and gluteal musculature. No free fluid is seen in the pelvis IMPRESSION: 1. Findings suggestive of fecal impaction involving the rectum. There is mild rectal wall thickening as well as adjacent minimal perirectal inflammatory stranding. Stercoral colitis cannot be excluded. 2. Osteopenia and degenerative changes. 3. There is sclerosis along the superomedial aspect of each femoral head which could be related to de generative changes. However, early changes of avascular necrosis cannot be entirely excluded. 4. No acute osseous abnormality is appreciated. 5. Dense vascular calcifications.
[2020-01-08] MEDS ORDERED: Bacitracin 1 PK ONE (21:12)
== END 2020-01-08 23:43 | disposition home or self-care (01) ==
LOC: ERS 18:57
DX: S51.812A Laceration without foreign body of left forearm, initial encounter (principal); S51.811A Laceration without foreign body of right forearm, initial encounter; S61.412A Laceration without foreign body of left hand, initial encounter; S61.411A Laceration without foreign body of right hand, initial encounter; S30.0XXA Contusion of lower back and pelvis, initial encounter; S00.83XA Contusion of other part of head, initial encounter; K59.00 Constipation, unspecified; S91.102A Unspecified open wound of left great toe without damage to nail, initial encounter; S91.101A Unspecified open wound of right great toe without damage to nail, initial encounter; I49.9 Cardiac arrhythmia, unspecified; I48.91 Unspecified atrial fibrillation; E11.9 Type 2 diabetes mellitus without complications; E78.2 Mixed hyperlipidemia; I10 Essential (primary) hypertension; G30.9 Alzheimer's disease, unspecified; F02.80 Dementia in other diseases classified elsewhere, unspecified severity, without behavioral disturbance, psychotic disturbance, mood disturbance, and anxiety; F41.9 Anxiety disorder, unspecified; F32.9 Major depressive disorder, single episode, unspecified; Z86.73 Personal history of transient ischemic attack (TIA), and cerebral infarction without residual deficits; Z79.899 Other long term (current) drug therapy; Z79.82 Long term (current) use of aspirin; Z79.84 Long term (current) use of oral hypoglycemic drugs; W06.XXXA Fall from bed, initial encounter; Y92.129 Unspecified place in nursing home as the place of occurrence of the external cause
CPT/HCPCS: 70450; 72125; 72192

== ENCOUNTER 2020-01-31 09:22 | Inpatient (IN) | payer MEDICARE, MEDICAID ==
[2020-01-31] MEDS ORDERED: Succinylcholine 200 MG/10 ml SYRINGE FS ONE (09:28)
[2020-01-31] MEDS ORDERED: Norepinephrine 8 MG/0.9% NS 250 ML ONE (09:48)
[2020-01-31] MEDS ORDERED: fentaNYL Citrate/PF 2,000 MCG in Sodium Chloride 0.9% 60 ML IV SCH (10:15)
--- NOTE | 2020-01-31 10:15 | RAD ---
EXAM: Single view of the chest HISTORY: Tube placement for respiratory failure COMPARISON: 11/29/2019 FINDINGS: Single view of the chest shows a normal sized cardiomediastinal silhouette. An endotrachea l tube is seen with its tip between the clavicles. An NG tube is seen in the stomach. Consolidation seen in the right lower lobe. An adjacent pleural effusion may also be present. Degener ative changes in the spine. IMPRESSION: 1. Appropriate position of lines and tubes 2. Right lower lobe pneumonia
[2020-01-31] MEDS ORDERED: Fentanyl 100 MCG/2 ML VIAL ONE ×2 (10:17→10:45)
[2020-01-31 10:20] LABS: #Lymphocytes 1.5 thou/uL (1.20-3.40); #Monocytes 0.8 thou/uL (0.11-0.59); #Neutrophils 14.4 thou/uL (1.40-6.50); %Basophils 0.2 % (0.0-1.0); %Eosinophils 0.1 % (0.0-10.0); %Lymphocytes 8.8 % (21.0-51.0); %Neutrophils 85.9 % (42.0-75.0); Hemoglobin 11.7 g/dL (12.0-16.0); Mean Corpuscular HGB CONC 32.3 g/dL (32.0-36.0); Mean Corpuscular Hemoglobin 32.9 pg (27.0-31.0); Mean Platelet Volume 7.5 fL (7.4-10.4); Platelet Count 448 thou/uL (130-400); RBC Distribution Width 12.3 % (11.5-14.5); Red Blood Cell (RBC) Count 3.56 mill/uL (4.20-5.40); White Blood Cell (WBC) Count 16.8 thou/uL (4.8-10.8)
[2020-01-31 10:27] LABS: INR-International Normal Ratio 1.5; Prothrombin Time 18.2 sec (12.0-14.7)
[2020-01-31 10:34] LABS: Analyzer IN Cardio ER; Base Excess (BEa) -5.5 mEq/L (-2.0 to +3.0); CO2 Tension 33.6 mmHg (35.0-45.0); Calcium, Ionized (arterial) 1.32 mmol/L (1.12-1.30); Carboxyhemoglobin (COHb) 0.3 gm% (0.0-3.0); Hemoglobin (Hb) 10.9 g/dL (12.0-16.0); O2 Tension (PaO2), arterial 36.7 mmHg (> 80.0); Potassium - ABG Lab 6.01 mmol/L (3.70-5.30); pH, Arterial 7.37 (7.35-7.45)
[2020-01-31 10:35] LABS: Puncture Site LBA
[2020-01-31] MEDS ORDERED: Vancomycin 1 GM/200 ML BAG ONE (10:36)
[2020-01-31] MEDS ORDERED: Cefepime 2 GM VIAL ONE (10:36)
[2020-01-31 10:46] LABS: ALT (SGPT) 63 U/L (8-55); AST (SGOT) 33 U/L (5-34); Alkaline Phosphatase 78 U/L (40-110); Anion Gap 22 mmol/L (10-20); BUN (Urea Nitrogen) 66 mg/dL (9.8-20.1); Bilirubin, Total 0.5 mg/dL (0.2-1.2); CK (CPK) 139 U/L (29-168); Calc. Creatinine Clearance 0 mL/min (70-130); Calcium 10.1 mg/dL (7.8-10.44); Carbon Dioxide 20 mmol/L (23-31); Chloride 116 mmol/L (98-107); Estimated GFR-MDRD 25; Globulin 5.2 g/dL (2.4-3.5); Glucose 137 mg/dL (80-115); Lipase 13 U/L (8-78); Potassium 5.6 mmol/L (3.5-5.1); Protein, Total 8.2 g/dL (6.0-8.3); Sodium 152 mmol/L (136-145)
[2020-01-31] MEDS ORDERED: Acetaminophen 325 MG TAB PO PRN (10:59)
[2020-01-31] MEDS ORDERED: Ondansetron PF 4 MG/2 ML Vial IVP PRN (10:59)
[2020-01-31] MEDS ORDERED: Bisacodyl 10 MG SUPP PR PRN (10:59)
[2020-01-31] MEDS ORDERED: Sodium Chloride 0.9% 1,000 ML IV SCH (10:59)
[2020-01-31] MEDS ORDERED: HumaLOG 300 UNITS/3 ML VIAL SC PRN (10:59)
[2020-01-31] MEDS ORDERED: Acetaminophen 650 MG Suppository PR PRN (10:59)
[2020-01-31] MEDS ORDERED: Dextrose 50% Abboject 50 ML SYRINGE SLOW IVP PRN (10:59)
[2020-01-31] MEDS ORDERED: Dextrose 5% in Water 1,000 ML IV PRN (10:59)
[2020-01-31 11:30] LABS: Bilirubin Negative (Negative); Blood, Urine Negative (Negative); Clarity Clear (Clear); Glucose, Urine (Dipstick) Normal (Negative); Ketone, Urine Negative (Negative); Leukocyte Negative Leu/uL (Negative); Nitrite Negative (Negative); Protein, Urine (Dipstick) 10 mg/dL (Neg-Trace); Specific Gravity, Urine 1.021 (1.002-1.036); Urobilinogen Normal mg/dL (Less than 2); pH, Urine 5.5 (5.0-9.0)
[2020-01-31 12:19] LABS: SARS-CoV-2 NAA Rapid Test Not Detected (NotDetected)
[2020-01-31] MEDS ORDERED: Propofol 1,000 MG/100 ML VIAL IV ONE (12:31)
[2020-01-31] MEDS ORDERED: Dextrose 5% in Water 1,000 ML IV SCH (12:45)
--- NOTE | 2020-01-31 13:07 | HP ---
REASON FOR ADMISSION: Acute respiratory failure with hypoxia, possible COVID pneumonia. HISTORY OF PRESENTING ILLNESS: The patient was brought to the emergency room from [facility]. She was apparently saturating at around 70% and was not conscious. She is normally oriented x1 at the [facility]. On arrival, the patient's saturations were 63% on non-rebreather and was intubated on arrival here. She tested negative for COVID last week at the [facility]. PAST MEDICAL AND SURGICAL HISTORY: Please note majority of this history is obtained by seeing prior medical records on [facility] as patient is intubated at present. History of diabetes mellitus type 2, hypertension, chronic kidney disease stage 3, chronic atrial fibrillation, dementia, history of multiple CVA, TIAs and essentially bed-bound, does not talk much and she also has history of dysphagia with minimal eating at [facility]; cholecystectomy, cardiac stent in 2013, laminectomy. CURRENT MEDICATIONS: Per [facility] records, the patient is on Ultram p.r.n. twice daily, baclofen 5 mg three times daily, Remeron 7.5 mg p.o. daily, cholecalciferol 1000 units two tablets daily, vitamin B12 1000 mcg three times a week, aspirin 325 mg daily, levothyroxine 88 mcg daily. ALLERGIES: ALLERGIC TO LISINOPRIL, NAPROSYN, AND ULTRAM. PERSONAL HISTORY: The patient is a resident of [facility]. There is no history of smoking or alcohol use per prior records. FAMILY HISTORY: Cannot be obtained as the patient is currently intubated. REVIEW OF SYSTEMS: Cannot be obtained as patient is currently intubated. PHYSICAL EXAMINATION: GENERAL: The patient is a 69-year-old female, who is currently intubated and is on the ventilator. VITAL SIGNS: Blood pressure 96/66, pulse rate 104 per minute, respiratory rate 28 per minute, saturating 94% on 100% FiO2 on the ventilator, temperature 99.8 degrees Fahrenheit. HEENT: Eyes; pupils are 3 mm and sluggishly reacting to light. Oral cavity, mucous membranes are dry. No exudates or congestion. The patient is orally intubated. CARDIOVASCULAR SYSTEM: S1-S2 heard. Regular rhythm. RESPIRATORY SYSTEM: Air entry 1+ bilateral. There is decreased air entry in the right infra-axillary area. ABDOMEN: Soft. Bowel sounds heard. No tenderness, rigidity, or guarding. EXTREMITIES: No peripheral edema. The patient has multiple ulcers on the legs and toes. Peripheral pulses are barely palpable in the upper extremity. CENTRAL NERVOUS SYSTEM: No gross focal deficits seen. NEUROLOGIC: Examination is limited as patient is currently intubated and is not oriented. PSYCHIATRIC SYSTEM: Cannot be assessed as the patient is intubated at present. LABORATORY DATA: COVID-19 PCR done in the ER is negative. Chest x-ray done shows right lower lobe pneumonia. Sodium 152, potassium 5.6, chloride 116, serum bicarb 20, BUN 66, creatinine 1.9, serum glucose 137, lactic acid 2.9, ALT 63, alkaline phosphatase 78, albumin is 3.0. Blood gas done shows a pH of 7.37, pCO2 of 33, PO2 of 36. White count of 16, H and H 11 and 36, platelet count 448, MCV 102 with 85% neutrophils. EKG done shows sinus tach at 106 beats per minute. There is incomplete RBBB seen. CLINICAL IMPRESSION AND PLAN: The patient will be admitted to ICU with acute respiratory failure with hypoxia, acute kidney injury, possible COVID; right lung pneumonia, likely aspiration with history of multiple CVA and dysphagia. Her overall prognosis is very poor and I have given complete updates to son, Mr. Christiano Sorenson over the phone. The patient apparently has advanced directives and he wants us to refer to those directives and call him if they are not accurate. The patient apparently carries a do not attempt to resuscitate, which was signed on 14 May 2014. For now, she will be on D5 water at 125 mils per hour. She will also be on steroids. We will closely watch her if she gets overly hyperglycemic and we will switch her fluids. She will be on cefepime and doxycycline for now. We will continue amiodarone, Aggrenox, Lipitor, and Aricept as before. DuoNebs along with Brovana nebulizers will be started here. We will confirm her code status from [facility] along with any legal documents that she has there and confirmed the same with son once we have the document faxed over to us from [facility]. I have consulted Dr. Mayberry for Pulmonology. Job ID: [id number]
[2020-01-31 13:37] LABS: Lactic Acid 2.5 mmol/L (0.5-2.2)
--- NOTE | 2020-01-31 15:17 | CON ---
DATE OF CONSULTATION: 01/31/2020 TIME SPENT: This is 45 minutes of critical care time. REASON FOR CONSULTATION: Pneumonia with acute hypoxic respiratory failure requiring mechanical ventilation. HISTORY OF PRESENT ILLNESS: This is a 69-year-old female, who is a resident of the [facility]. She was brought in to the ER today with hypoxemia and altered mental status. She was intubated and placed on mechanical ventilation. She had a COVID test, which was negative. She has an x-ray showing pretty profound right lower lobe pneumonia. PAST MEDICAL HISTORY: 1. Diabetes mellitus. 2. Hypertension. 3. Chronic kidney disease stage 3. 4. Chronic atrial fibrillation. 5. Dementia. 6. Strokes. 7. Bed-bound status. 8. Dysphagia. PAST SURGICAL HISTORY: 1. Cholecystectomy. 2. Coronary stent placement. 3. Laminectomy. MEDICATIONS: Prior to admission; 1. Ultram. 2. Baclofen. 3. Remeron. 4. Cholecalciferol. 5. Vitamin B12. 6. Aspirin. 7. Levothyroxine. ALLERGIES: LISINOPRIL, NAPROSYN, ULTRAM. SOCIAL HISTORY: No history of smoking or alcohol consumption. FAMILY MEDICAL HISTORY: Not known. REVIEW OF SYSTEMS: Cannot be obtained because the patient is intubated. PHYSICAL EXAMINATION: VITAL SIGNS: Blood pressure 96/66, requiring Levophed, pulse 104, respirations 28, O2 saturation 93% on 80% oxygen on mechanical ventilation, temperature 99.8. GENERAL: She is a disheveled, thin female, who has chronic muscle wasting. HEENT: Pupils reactive. Sclerae anicteric. Oropharynx dry. NECK: No adenopathy or JVD. LUNGS: Crackles in right lower lobe. Left side clear. CARDIOVASCULAR: S1, S2. Regular. ABDOMEN: Soft and nontender. BACK: Stage III decubitus ulcer, sacral area. EXTREMITIES: Severe muscle wasting without overt edema. LABORATORY DATA: COVID test negative. White blood cell count 16.8, hematocrit 36.3, and platelet count 448. INR 1.5. PH of 7.37, pCO2 of 33, pO2 of 36 prior to intubation. Sodium 152, potassium 5.6, chloride 116, CO2 of 20, BUN 66, creatinine 1.9, glucose 137. X-ray shows a profound right lower lobe infiltrate. ASSESSMENT: 1. Right lower lobe pneumonia-likely pneumococcal. 2. Acute hypoxic respiratory failure. 3. Chronic debilitated state. 4. Hypernatremia. 5. Acute renal failure. RECOMMENDATIONS: 1. Agree with steroids, antibiotics, and nebulization treatments. 2. Add vitamin C, zinc, vitamin D. 3. Check ABG and chest x-ray tomorrow. 4. GI prophylaxis with Pepcid. 5. Enoxaparin for DVT prophylaxis. 6. This patient's prognosis is quite poor for functional recovery. Job ID: [id number]
[2020-01-31] MEDS: methylPREDNISolone Sod Succ 40 MG VIAL IVP SCH ×3 (15:49→23:11)
[2020-01-31] MEDS ORDERED: Fentanyl BOLUS 250 ML IVPB PRN (16:45)
[2020-01-31] MEDS ORDERED: Propofol BOLUS 1,000 MG/100 ML VIAL IV PRN (16:45)
[2020-01-31] MEDS ORDERED: Morphine 2 MG/ML VIAL SLOW IVP PRN (16:45)
[2020-01-31] MEDS ORDERED: Lorazepam 2 MG/ML VIAL SLOW IVP PRN (16:45)
[2020-01-31] MEDS ORDERED: DISCONTINUE PREVIOUS NARCOTIC PAIN MEDICATIONS AND BENZODIAZEPINES FS SCH (16:45)
[2020-01-31] MEDS ORDERED: Norepinephrine 8 MG/0.9% NS 250 ML IVPB SCH (17:00)
--- NOTE | 2020-01-31 18:27 | CON ---
DATE OF CONSULTATION: CONSULTING PHYSICIAN: Zhou Newman MD REQUESTING PHYSICIAN: Malik Joshua MD REASON FOR CONSULTATION: Acute kidney injury, hyperkalemia, metabolic acidosis in the patient with COVID pneumonitis. IMPRESSION: 1. Acute kidney injury, query cause possibly related to COVID infection plus or minus hemodynamically mediated in the context of hypotension. 2. Hyperkalemia, partly due to potassium supplementation in the patient with reduced GFR as well as cellular shift of potassium due to metabolic acidosis. 3. COVID pneumonitis. 4. Labile hemodynamics. 5. Hypernatremia in the context of free water deficit. PLAN: 1. The patient to be on free water with 5% dextrose water. Given the metabolic acidosis and hyperkalemia, we will add only 50 mEq of sodium bicarb to make the fluid to be hypotonic. 2. Renally dose all medications. 3. Monitor the electrolytes closely, especially the potassium as well as the sodium. 4. No emergent indication for renal replacement therapy. 5. Further management to be dependent on the clinical course. HISTORY OF PRESENT ILLNESS: History is that of a 69-year-old female patient was brought in because of respiratory distress, intubated at this point in the context of possible COVID pneumonitis, though the test so far negative. The patient is a resident of [facility], noted to be hypoxic with oxygen saturation in the 70s with some mental status change. As a result of the findings of elevated creatinine and hyperkalemia, decision was taken to involve Renal in the management of this case. PAST MEDICAL HISTORY: According to record includes type 2 diabetes, hypertension, chronic kidney disease stage 3, atrial fibrillation, dementia, multiple CVA, TIA, and coronary artery disease. MEDICATIONS: Reviewed and as documented on [facility] [employer]. ALLERGIES: TO LISINOPRIL, NAPROSYN, AND ULTRAM. SOCIAL HISTORY: The patient is a shelter resident. No history of tobacco or alcohol. FAMILY HISTORY: Could not be obtained given the fact this patient is already intubated. REVIEW OF SYSTEMS: Could not be obtained given the fact this patient is already intubated. LABORATORY INVESTIGATIONS: Significant for the following; white count of 16,800. Chemistry showed a sodium of 152 with a potassium of 5.6, bicarb of 20, creatinine BUN of 66. PHYSICAL EXAMINATION: GENERAL: The patient was found to be intubated, noted with the following vital signs. VITAL SIGNS: Labile hemodynamics dependent, pulse of 88, respiratory rate of 17, and O2 sats of 99% on FiO2 of 70%. HEENT: Unremarkable. CARDIOVASCULAR SYSTEM: First and second heart sounds were heard. RESPIRATORY SYSTEM: Revealed vented sounds. DIGESTIVE SYSTEM: Revealed a benign abdomen. EXTREMITIES: No peripheral edema. SKIN: No new gross rash. LYMPHATICS: No peripheral lymphadenopathy. SUMMARY: A 69-year-old female patient with multiple comorbidities, who presented here with respiratory distress, intubated, now noted with deteriorating renal function, likely hemodynamically mediated. Thank you for this consultation. We will follow with you. Job ID: [id number]
[2020-01-31] MEDS: Sodium Bicarbonate 50 MEQ in Dextrose 5% in Water 1,000 ML IV SCH (18:28)
[2020-01-31] MEDS: HumaLOG 300 UNITS/3 ML VIAL SC PRN ×2 (18:48→21:04)
[2020-01-31] MEDS: Arformoterol 15 MCG/2 ML NEB NEB SCH (18:57)
[2020-01-31] MEDS: Amiodarone 200 MG TAB PO SCH (20:40)
[2020-01-31] MEDS: Famotidine/PF 20 mg/2ml Vial SLOW IVP SCH (20:41)
[2020-01-31] MEDS: Doxycycline 100 MG CAP PO SCH (20:41)
[2020-01-31] MEDS: Cholecalciferol 1,000 UNITS (25 MCG) TAB PO SCH (20:41)
[2020-01-31] MEDS: Aggrenox 200-25mg CAP PO SCH (20:41)
[2020-01-31] MEDS: Cefepime 1 GM in Sodium Chloride 0.9% 100 ML IVPB SCH (23:11)
[2020-02-01] MEDS: Sodium Bicarbonate 50 MEQ in Dextrose 5% in Water 1,000 ML IV SCH ×2 (02:12→11:51)
[2020-02-01] MEDS: HumaLOG 300 UNITS/3 ML VIAL SC PRN ×2 (04:03→17:15)
[2020-02-01] MEDS: methylPREDNISolone Sod Succ 40 MG VIAL IVP SCH ×4 (05:00→20:29)
[2020-02-01 05:13] LABS: Anion Gap 15 mmol/L (10-20); BUN (Urea Nitrogen) 71 mg/dL (9.8-20.1); Calc. Creatinine Clearance 23 mL/min (70-130); Calcium 8.5 mg/dL (7.8-10.44); Carbon Dioxide 23 mmol/L (23-31); Chloride 114 mmol/L (98-107); Estimated GFR-MDRD 23; Glucose 279 mg/dL (80-115); Potassium 5.5 mmol/L (3.5-5.1); Sodium 146 mmol/L (136-145)
[2020-02-01 05:24] LABS: Band 15 % (5-11); Hemoglobin 8.6 g/dL (12.0-16.0); Lymphocytes 2 % (21-51); MDiff Complete? YES; Macrocytosis SLIGHT = 6-15 cells (100X) (0-5/hpf); Mean Corpuscular HGB CONC 32.4 g/dL (32.0-36.0); Mean Corpuscular Hemoglobin 33.2 pg (27.0-31.0); Mean Platelet Volume 7.2 fL (7.4-10.4); Metamyelocyte 2 % (0-0); Monocytes 1 % (0-10); Neutrophil 80 % (42-75); Platelet Count 287 thou/uL (130-400); Platelet Morphology Comment Appears Adequate; RBC Distribution Width 12.3 % (11.5-14.5); Red Blood Cell (RBC) Count 2.58 mill/uL (4.20-5.40); White Blood Cell (WBC) Count 11.5 thou/uL (4.8-10.8)
[2020-02-01] MEDS: Arformoterol 15 MCG/2 ML NEB NEB SCH ×2 (07:44→19:17)
[2020-02-01] MEDS: Zinc Sulfate 220 MG CAP PO SCH (08:05)
[2020-02-01] MEDS: Ascorbic Acid 500 mg Chewable Tablet PO SCH (08:05)
[2020-02-01] MEDS: FLUoxetine HCl 20 MG CAP PO SCH (08:05)
[2020-02-01] MEDS: Enoxaparin Sodium 30 MG/0.3 ML SYRINGE SC SCH (08:05)
[2020-02-01] MEDS: Amiodarone 200 MG TAB PO SCH ×2 (08:05→20:28)
[2020-02-01] MEDS: Famotidine/PF 20 mg/2ml Vial SLOW IVP SCH ×2 (08:05→20:30)
[2020-02-01] MEDS: Aggrenox 200-25mg CAP PO SCH ×2 (08:05→20:29)
[2020-02-01] MEDS: Doxycycline 100 MG CAP PO SCH ×2 (08:06→20:28)
[2020-02-01 08:18] LABS: Actual Bicarbonate (HCO3a) 20.1 mEq/L (22-28); Analyzer IN Cardio ER; Base Excess (BEa) -4.5 mEq/L (-2.0 to +3.0); CO2 Tension 34.7 mmHg (35.0-45.0); Carboxyhemoglobin (COHb) 0.2 gm% (0.0-3.0); Hemoglobin (Hb) 9.8 g/dL (12.0-16.0); O2 Tension (PaO2), arterial 140.7 mmHg (> 80.0); Potassium - ABG Lab 5.16 mmol/L (3.70-5.30); pH, Arterial 7.38 (7.35-7.45)
[2020-02-01] MEDS ORDERED: FLU VACC QS2020-21(65YR UP)/PF 240 MCG/0.7 ML SYRINGE IM ONE (09:00)
--- NOTE | 2020-02-01 09:19 | RAD ---
Portable frontal chest radiograph: 02/01/2020 COMPARISON: 01/31/2020 HISTORY: Pneumonia FINDINGS: Left lung appears grossly unremarkable. Stable endotracheal tube and nasogastric tube. There is interstitial and scattered alveolar opacities/groundglass opacity within the right perihilar region, the right upper lobe, in the right lung base. Aeration within the right lung base has markedly improved when compared to the prior examination. There is new subtle opacity within the righ t upper lobe region. IMPRESSION: Nonspecific scattered interstitial and alveolar/ground glass opacity on the right. Stable lines and tubes. Interval improvement in right basilar aeration.
--- NOTE | 2020-02-01 09:37 | PDOC.HOSPP ---
- Subjective Encounter Date: 02/01/20 Encounter Time: 10:50 Subjective: Patient remains intubated. No events overnight. - Objective Vital Signs & Weight: Vital Signs (12 hours) Temp Pulse Resp BP Pulse Ox 02/01/20 07:45 70 121/65 02/01/20 07:44 70 16 100 02/01/20 06:00 16 02/01/20 04:00 98.8 F 16 02/01/20 03:18 70 02/01/20 02:00 16 02/01/20 00:00 98.9 F 16 01/31/20 23:59 76 01/31/20 23:06 100 01/31/20 22:00 16 Weight Weight 127 lb 3.307 oz Most Recent Monitor Data Heart Rate from ECG 86 NIBP 118/62 NIBP BP-Mean 80 Respiration from ECG 23 SpO2 100 I&O: 01/31/20 02/01/20 02/02/20 06:59 06:59 06:59 Intake Total 1843.1 Output Total 497 Balance 1346.1 Result Diagrams: 02/01/20 03:55 02/01/20 03:55 Additional Labs: Accuchecks 02/01/20 01/31/20 01/31/20 03:58 21:03 18:47 POC Glucose 238 H 201 H 209 H 01/31/20 16:01 POC Glucose 168 H Hospitalist ROS - Review of Systems ROS unobtainable: due to endotracheal tube - Medication Medications: Active Medications Generic Name Dose Route Start Last Admin Trade Name Freq PRN Reason Stop Dose Admin Albuterol/Ipratropium 3 ml 01/31/20 13:00 02/01/20 07:44 Ipratropium/Albuterol Sulfate 3 Ml Neb NEB 3 ml [id number] YARELIS Administration Amiodarone HCl 100 mg 01/31/20 21:00 02/01/20 08:05 Amiodarone 200 Mg Tab PO 100 mg BID YARELIS Administration Arformoterol Tartrate 15 mcg 01/31/20 18:30 02/01/20 07:44 Arformoterol 15 Mcg/2 Ml Neb NEB 15 mcg BID-RT YARELIS Administration Ascorbic Acid 1,000 mg 02/01/20 09:00 02/01/20 08:05 Ascorbic Acid 500 Mg Chewable Tablet PO 1,000 mg DAILY YARELIS Administration Cholecalciferol 5,000 units 01/31/20 21:00 01/31/20 20:41 Cholecalciferol 1,000 Units (25 Mcg) Tab PO 5,000 units HS YARELIS Administration Dipyridamole/Aspirin 1 cap 01/31/20 21:00 02/01/20 08:05 Aggrenox 200-25mg Cap PO 1 cap BID YARELIS Administration Doxycycline Hyclate 100 mg 01/31/20 21:00 02/01/20 08:06 Doxycycline 100 Mg Cap PO 100 mg BID YARELIS Administration Enoxaparin Sodium 30 mg 02/01/20 09:00 02/01/20 08:05 Enoxaparin Sodium 30 Mg/0.3 Ml Syringe SC 30 mg 0900 YARELIS Administration Famotidine 20 mg 01/31/20 21:00 02/01/20 08:05 Famotidine/Pf 20 Mg/2ml Vial SLOW IVP 20 mg Q12HR YARELIS Administration Fluoxetine HCl 20 mg 02/01/20 09:00 02/01/20 08:05 Fluoxetine Hcl 20 Mg Cap PO 20 mg DAILY YARELIS Administration Cefepime HCl 1 gm/ Sodium 100 mls @ 200 mls/hr 01/31/20 23:00 01/31/20 23:11 Chloride IVPB 100 mls 1100,2300 YARELIS Administration Sodium Bicarbonate 50 meq/ 1,050 mls @ 125 mls/hr 01/31/20 16:03 02/01/20 02:12 Dextrose/Water IV 1,050 mls .[id number] YARELIS Administration Insulin Human Lispro 0 units 01/31/20 10:59 02/01/20 04:03 Humalog 300 Units/3 Ml Vial SC 4 unit .MODERATE SLIDING SC PRN Administration Moderate Correctional Scale Methylprednisolone Sodium Succinate 20 mg 01/31/20 12:00 02/01/20 05:00 Methylprednisolone Sod Succ 40 Mg Vial IVP 20 mg Q6HR YARELIS Administration Zinc Sulfate 220 mg 02/01/20 09:00 02/01/20 08:05 Zinc Sulfate 220 Mg Cap PO 220 mg DAILY YARELIS Administration - Exam General Appearance: NAD General - other findings: sedated on vent ENT: moist mucosa Heart: RRR, no murmur, no gallops, no rubs Respiratory: CTAB, no wheezes, no rales, no ronchi Gastrointestinal: soft, non-tender, non-distended, normal bowel sounds Psychiatric - other findings: sedated and unresponsive on the vent Hosp A/P (1) Pneumonia Code(s): J18.9 - PNEUMONIA, UNSPECIFIED ORGANISM Status: Acute (2) Acute respiratory failure with hypoxia Code(s): J96.01 - ACUTE RESPIRATORY FAILURE WITH HYPOXIA Status: Acute (3) Acute renal failure Status: Acute (4) Anemia Code(s): D64.9 - ANEMIA, UNSPECIFIED Status: Acute (5) Hypernatremia Code(s): E87.0 - HYPEROSMOLALITY AND HYPERNATREMIA Status: Acute (6) Atrial fibrillation Code(s): I48.91 - UNSPECIFIED ATRIAL FIBRILLATION Status: Chronic (7) CAD (coronary artery disease) Code(s): I25.10 - ATHSCL HEART DISEASE OF [place] CORONARY ARTERY W/O ANG PCTRS Status: Chronic (8) Dementia Code(s): F03.90 - UNSPECIFIED DEMENTIA WITHOUT BEHAVIORAL DISTURBANCE Status: Chronic (9) Diabetes mellitus type 2 Code(s): E11.9 - TYPE 2 DIABETES MELLITUS WITHOUT COMPLICATIONS Status: Chronic (10) H/O: CVA (cerebrovascular accident) Code(s): Z86.73 - PRSNL HX OF TIA (TIA), AND CEREB INFRC W/O RESID DEFICITS Status: Chronic (11) Hyperlipidemia Code(s): E78.5 - HYPERLIPIDEMIA, UNSPECIFIED Status: Chronic (12) Hypertension Code(s): I10 - ESSENTIAL (PRIMARY) HYPERTENSION Status: Chronic - Plan On Cefepime and Vanc since 01/31/2020 Intubated and ventilated, Dr. Mayberry managing 2 point drop in hemoglobin, possibly dilutional Renal failure worsening slightly, appreciate Dr. Epperson's assistance DVT Proph: Xarelto on hold, low dose Lovenox GI Proph: Pepcid
[2020-02-01] MEDS: fentaNYL Citrate/PF 2,000 MCG in Sodium Chloride 0.9% 60 ML IV SCH (10:44)
[2020-02-01 11:38] LABS: Vancomycin, Trough 11.4 ug/mL
[2020-02-01 11:41] LABS: Puncture Site LBA
[2020-02-01 11:42] LABS: ALV-art Gradient 279.375 mmHg (0-20)
[2020-02-01] MEDS: Vancomycin 1 GM in Premix Bag 1 BAG IVPB SCH (11:50)
[2020-02-01] MEDS: Cefepime 1 GM in Sodium Chloride 0.9% 100 ML IVPB SCH (11:51)
[2020-02-01] MEDS ORDERED: Vancomycin 1 GM in Premix Bag 1 BAG IVPB SCH (14:00)
--- NOTE | 2020-02-01 14:49 | PRG ---
DATE OF SERVICE: 02/01/2020 SUBJECTIVE: Ms. Sorenson's events have been reviewed. She is hemodynamically stable. Still mechanically ventilated. OBJECTIVE: VITAL SIGNS: Heart rate is in the 60s, blood pressure 100/55, respiratory rates 10. LUNGS: Remarkable for coarse equal breath sounds. HEART: Regular rhythm. ABDOMEN: Soft. LABORATORY DATA: COVID screen is negative. White count 11.5, hemoglobin 8.6, platelets 287. Sodium 146, potassium 5.5, chloride 114, bicarb 23, BUN 71, creatinine 2.11. Creatinine yesterday was 1.97. IMPRESSION: 1. Respiratory failure secondary to pneumonia, most likely aspiration mediated. 2. Diabetes. 3. Acute on chronic kidney failure. 4. Hyperchloremia and hypernatremia, most likely secondary to intravascular volume depletion. 5. Decubitus ulcer. 6. History of advanced dementia. Given her multiple medical problems, I really cannot see how she can survive this. Extreme deconditioning in chronically bedridden state. wean successfully. Withdrawal of care would not be unreasonable in my opinion. Critical care time 30 min. Job ID: [id number] MTDD
--- NOTE | 2020-02-01 17:33 | PRG ---
DATE OF SERVICE: 02/01/2020 SUBJECTIVE: The patient is seen and examined, still on life support. Noted with the following vital signs. OBJECTIVE: VITAL SIGNS: Blood pressure 104/56, pulse of 64, sat of 100% on mechanical ventilation. HEENT: Remarkable for endotracheal tube in place. CARDIOVASCULAR: First and second heart sounds. RESPIRATORY: Revealed vented sounds. DIGESTIVE: Revealed a benign abdomen with positive bowel sounds. EXTREMITIES: No peripheral edema. SKIN: No new gross rash. LYMPHATICS: No peripheral lymphadenopathy. LABORATORY INVESTIGATION: Showed hemoglobin of 8.6. Chemistry showed sodium of 146, potassium 5.5, bicarb of 23, and creatinine of 2.11. IMPRESSION: 1. Acute on chronic kidney disease. 2. Metabolic acidosis, which seems to have resolved. 3. Hyperkalemia with hypernatremia in the context of acute kidney injury. 4. Cardiopulmonary failure. PLAN: 1. We will continue renal supportive measures, vein emphasis on free water repletion. 2. We will likely discontinue bicarb supplementation as the patient's metabolic acidosis has improved. 3. We will continue to monitor the potassium level closely. Hopefully point of requiring renal replacement therapy. 4. Further management to be dependent on the clinical course. Job ID: [id number]
[2020-02-01] MEDS: Propofol 1,000 MG/100 ML VIAL IV PRN (18:07)
[2020-02-01] MEDS: D5 1/4 NS 1,000 ML IV SCH (18:10)
[2020-02-01] MEDS: Cholecalciferol 1,000 UNITS (25 MCG) TAB PO SCH (20:28)
[2020-02-01] MEDS ORDERED: Atorvastatin Calcium 40 MG TAB PO SCH (21:00)
[2020-02-02] MEDS: Cefepime 1 GM in Sodium Chloride 0.9% 100 ML IVPB SCH ×3 (00:14→21:55)
[2020-02-02] MEDS: D5 1/4 NS 1,000 ML IV SCH ×4 (04:00→21:15)
[2020-02-02] MEDS: Vancomycin 1 GM in Premix Bag 1 BAG IVPB SCH (04:01)
[2020-02-02] MEDS: HumaLOG 300 UNITS/3 ML VIAL SC PRN ×4 (04:15→21:15)
[2020-02-02] MEDS: Arformoterol 15 MCG/2 ML NEB NEB SCH (05:19)
[2020-02-02] MEDS: methylPREDNISolone Sod Succ 40 MG VIAL IVP SCH ×2 (05:26→11:48)
[2020-02-02 07:04] LABS: Actual Bicarbonate (HCO3a) 21.4 mEq/L (22-28); Base Excess (BEa) -5.2 mEq/L (-2.0 to +3.0); CO2 Tension 47.2 mmHg (35.0-45.0); Calcium, Ionized (arterial) 1.16 mmol/L (1.12-1.30); Carboxyhemoglobin (COHb) 0.3 gm% (0.0-3.0); Hemoglobin (Hb) 8.1 g/dL (12.0-16.0); Potassium - ABG Lab 4.53 mmol/L (3.70-5.30); pH, Arterial 7.27 (7.35-7.45)
[2020-02-02 07:05] LABS: Puncture Site LRA
--- NOTE | 2020-02-02 08:15 | CON ---
DATE OF CONSULTATION: 02/01/2020 REASON FOR CONSULT: Sacral decubitus ulcers. HISTORY OF PRESENT ILLNESS: Ms. Sorenson is a 69-year-old demented senior living patient, who is normally alert and oriented only to self. She was apparently found down unconscious and saturating 70% at her senior living and was brought into the emergency room saturating 63% on a non-rebreather and emergently intubated. She had a negative test for COVID last week at her nursing facility and has been basically unresponsive since her admission. Past history is obtained entirely by chart review as the patient is unresponsive. PAST MEDICAL HISTORY: Positive for diabetes, hypertension, chronic kidney disease stage 3, chronic atrial fibrillation, dementia with history of multiple strokes and TIAs. Hypothyroid. PAST SURGICAL HISTORY: Cardiac stent and cholecystectomy and laminectomy. SOCIAL HISTORY: She is a senior living patient with minimal oral intake and history of dysphagia. She reportedly had an err-vm-bkgifeop DNR order and is demented at baseline, oriented only to self. OUTPATIENT MEDICATIONS: At senior living include; 1. Ultram. 2. Baclofen. 3. Remeron. 4. Cholecalciferol. 5. Vitamin B12. 6. Aspirin. ALLERGIES: INCLUDE LISINOPRIL, NAPROSYN. ALLERGY LIST INCLUDES ULTRAM, BUT ULTRAM IS ALSO ON HER MEDICATION LIST SOCIAL HISTORY: Reports from the senior living states that she does not smoke, use alcohol or drugs. FAMILY HISTORY: Not obtainable. REVIEW OF SYSTEMS: Not obtainable. PHYSICAL EXAMINATION: VITAL SIGNS: The patient is afebrile since admission. Heart rate of 73, blood pressure 109/59, respirations 11, 100% saturated on the ventilator. GENERAL: Reveals an elderly woman, who appears older than her stated age on the ventilator with purulent aspirate from her endotracheal tube. She is not responsive to commands and does not localize to pain She is sedated. No significant cervical adenopathy. HEART: Regular in its rate and rhythm without murmurs, rubs, or gallops. LUNGS: Coarse bilaterally. ABDOMEN: Soft and nondistended. She does not exhibit pain to palpation EXTREMITIES: Warm and well perfused. She has an area of blanching erythema on the lateral surface of her right heel significant with early decubitus ulcer with one area of darkening of the skin, which looks more like a scab. She has a large unstageable sacral decubitus ulcer involving most of the sacral surface which was present on admission. This appears to be full-thickness over most of the central portion of the decubitus ulcer, but is not well demarcated or sloughing and it is somewhat patchy in appearance. There is no underlying fluctuance or erythema to suggest underlying infection. ASSESSMENT: Critically ill elderly demented patient on the ventilator likely with aspiration pneumonia. She has a large unstageable sacral decubitus ulcer which was present on admission. This appears to be full-thickness but difficult to confirm without any sort of exam due to mental status. We are going to just observe this now. It will likely demarcate and require debridement at a later date but there is no urgent indication for this. Given the patient's overall status and previous DNR orders, palliative care consultation for comfort care is likely the most appropriate treatment. Job ID: [id number] [id number]
--- NOTE | 2020-02-02 09:02 | RAD ---
PORTABLE CHEST 1 VIEW: Date: 02/02/2020 Time: 0448 hours HISTORY: Respiratory failure. COMPARISON: Previous day. FINDINGS/IMPRESSION: Endotracheal and nasogastric tube positions are unchanged. The heart size is normal. Right lung opaci ties again seen. Left lung is clear. No pneumothoraces or pleural effusions are seen. POS: MZA
[2020-02-02] MEDS: fentaNYL Citrate/PF 2,000 MCG in Sodium Chloride 0.9% 60 ML IV SCH (09:10)
[2020-02-02] MEDS: Ascorbic Acid 500 mg Chewable Tablet PO SCH (09:45)
[2020-02-02] MEDS: Amiodarone 200 MG TAB PO SCH (09:46)
[2020-02-02] MEDS: FLUoxetine HCl 20 MG CAP PO SCH (09:47)
[2020-02-02] MEDS: Zinc Sulfate 220 MG CAP PO SCH (09:47)
[2020-02-02] MEDS: Aggrenox 200-25mg CAP PO SCH (09:47)
[2020-02-02] MEDS: Enoxaparin Sodium 30 MG/0.3 ML SYRINGE SC SCH (09:49)
[2020-02-02] MEDS: Doxycycline 100 MG CAP PO SCH (10:45)
[2020-02-02] MEDS ORDERED: Dextrose 5 %-0.45 % NaCl 1,000 ML IV SCH (11:15)
[2020-02-02 13:29] LABS: Vancomycin, Trough 17.5 ug/mL
--- NOTE | 2020-02-02 14:14 | PRG ---
DATE OF SERVICE: 02/02/2020 SUBJECTIVE: Ms. Sorenson remains mechanically ventilated. I reviewed her chest x-ray with the daughter and explained that the degree of pneumonia that Ms. Sorenson is something that the daughter would be able to go to work with. It is undoubtedly aspiration mediated. The daughter tells me that her mother never wanted any of this that it should be in the living will. I have explained her the most living villalta just say "if it is hopeless, let me go." I do believe that this is a hopeless situation. She has been completely bedridden for the last year with limited p.o. intake and progressive weight loss and progressive weakness. The daughter wants her to be a do not resuscitate patient and I have to put that order in the computer. We tried to contact the son, who daughter feels was in christianity this morning. She will get with him and they will determine when they want to terminally extubate her for comfort care. PHYSICAL EXAMINATION: LUNGS: Unchanged. HEART: Unchanged. ABDOMEN: Unchanged. There is no reason to keep doing daily lab or blood glucoses on her. We will discontinue blood gases. Job ID: [id number]
--- NOTE | 2020-02-02 17:19 | PDOC.HOSPP ---
- Subjective Encounter Date: 02/02/20 Encounter Time: 17:00 Subjective: f/u for PNA/resp failure on mech ventilation receiving Cefepime currently. Family considering comfort measures/palliative and potential terminal extubation. - Objective Vital Signs & Weight: Vital Signs (12 hours) Temp Pulse Resp BP Pulse Ox 02/02/20 14:47 59 L 114/65 02/02/20 12:00 98.4 F 02/02/20 11:35 59 L 108/58 L 02/02/20 10:00 12 02/02/20 08:00 97.8 F 12 100 02/02/20 06:50 68 98/57 L 02/02/20 06:00 10 L 02/02/20 05:18 64 104/56 L Weight Admit Weight 127 lb Weight 127 lb 3.307 oz Most Recent Monitor Data Heart Rate from ECG 64 NIBP 112/61 NIBP BP-Mean 78 Respiration from ECG 12 SpO2 100 I&O: 02/01/20 02/02/20 02/03/20 06:59 06:59 06:59 Intake Total 1843.1 3571.2 1227 Output Total 497 300 260 Balance 1346.1 3271.2 967 Result Diagrams: 02/01/20 03:55 02/01/20 03:55 Additional Labs: Accuchecks 02/02/20 02/02/20 02/02/20 17:08 11:20 04:13 POC Glucose 274 H 287 H 302 H 02/01/20 22:00 POC Glucose 237 H Microbiology 02/02/20 05:25 Sputum Respiratory Culture - Preliminary 01/31/20 10:08 Venous blood - Right Hand Blood Culture - Preliminary NO GROWTH AT 48 HOURS 01/31/20 10:08 Venous blood - Left Hand Blood Culture - Preliminary NO GROWTH AT 48 HOURS Laboratory Tests 01/31/20 01/31/20 02/01/20 10:08 11:15 03:55 WBC 16.8 H Hgb 11.7 L Plt Count 448 H Neutrophils % 85.9 H Neutrophils % (Manual) 80 H Band Neuts % (Manual) 15 H Vancomycin Trough SARS-CoV-2 Rap RNA(RT-PCR) Not Detected 02/01/20 02/02/20 10:58 13:07 WBC Hgb Plt Count Neutrophils % Neutrophils % (Manual) Band Neuts % (Manual) Vancomycin Trough 11.4 17.5 SARS-CoV-2 Rap RNA(RT-PCR) Radiology Reviewed by me: Yes (PCXR - lines/tubes in place, R lung infiltrate noted) EKG Reviewed by me: Yes (Tele - SR) Hospitalist ROS - Medication Medications: Active Medications Generic Name Dose Route Start Last Admin Trade Name Freq PRN Reason Stop Dose Admin Cholecalciferol 5,000 units 01/31/20 21:00 02/01/20 20:28 Cholecalciferol 1,000 Units (25 Mcg) Tab PO 5,000 units HS YARELIS Administration Cefepime HCl 1 gm/ Sodium 100 mls @ 200 mls/hr 01/31/20 23:00 02/02/20 09:47 Chloride IVPB 100 mls 1100,2300 YARELIS Administration Fentanyl Citrate 2,000 mcg/ 100 mls @ 0 mls/hr 01/31/20 16:45 02/02/20 09:10 Sodium Chloride IV 03/01/20 16:45 100 mls INF YARELIS Administration Protocol Per Protocol Dextrose/Sodium Chloride 1,000 mls @ 125 mls/hr 02/01/20 17:15 02/02/20 09:00 D5 1/4 Ns IV Not Given .Q8H YARELIS Dextrose/Sodium Chloride 1,000 mls @ 125 mls/hr 02/02/20 11:15 02/02/20 13:21 D5 1/4 Ns IV 1,000 mls INF YARELIS Administration Insulin Human Lispro 0 units 01/31/20 10:59 02/02/20 11:50 Humalog 300 Units/3 Ml Vial SC 6 unit .MODERATE SLIDING SC PRN Administration Moderate Correctional Scale Propofol 1,000 mg 01/31/20 16:45 02/01/20 18:07 Propofol 1,000 Mg/100 Ml Vial IV 03/01/20 16:45 1,000 mg INF PRN Administration TO ACHIEVE GOAL RASS Protocol Sodium Chloride 10 ml 02/01/20 09:00 02/02/20 09:00 Flush - Normal Saline 10 Ml Syringe IVF Not Given Q12HR YARELIS - Exam General Appearance: ill appearing General - other findings: sedate on mech vent, blinks eyes voluntarily Eye: PERRL, anicteric sclera ENT: normocephalic atraumatic, no oropharyngeal lesions ENT - other findings: ETT in place Neck: supple, symmetric, no JVD, no thyromegaly, no lymphadenopathy Heart: RRR, no gallops, no rubs, normal peripheral pulses Heart - other findings: S1, S2 Respiratory: no ronchi, no tachypnea Respiratory - other findings: diminished in bases, no spontaneous resp(vent dependent) Gastrointestinal: soft, non-tender, non-distended, normal bowel sounds, no palpable masses Extremities: no cyanosis, no clubbing Skin: normal turgor Skin - other findings: R toe/heel ulcers, large unstageable sacral decub(POA) Neurological - other findings: sedate on mech vent Musculoskeletal: generalized weakness Psychiatric: somnolent, lethargic Hosp A/P (1) Acute respiratory failure with hypoxia Code(s): J96.01 - ACUTE RESPIRATORY FAILURE WITH HYPOXIA Status: Acute Plan: Continue mech ventilation, family discussing further care or potential terminal extubation (2) Pneumonia Code(s): J18.9 - PNEUMONIA, UNSPECIFIED ORGANISM Status: Acute Plan: Continue Cefepime IV (3) Decubitus ulcer of sacral region, unstageable Code(s): L89.150 - PRESSURE ULCER OF SACRAL REGION, UNSTAGEABLE Status: Chronic Plan: POA, no acute surgical intervention recommended by Gen Surgery, local care, turning protocol (4) Acute renal failure Status: Acute Plan: Likely due to infectious process/sepsis/dehydration, avoid nephrotoxic meds and limit contrast, serial creatinine (5) Type 2 diabetes mellitus Status: Chronic Qualifiers: Diabetes mellitus complication detail: with chronic kidney disease Chronic kidney disease stage: stage 3 (moderate) Plan: ISS, serial accuchecks (6) Sepsis Code(s): A41.9 - SEPSIS, UNSPECIFIED ORGANISM Status: Acute Plan: Continue Cefepime/family considering full comfort care/palliative measures (7) Hypernatremia Code(s): E87.0 - HYPEROSMOLALITY AND HYPERNATREMIA Status: Acute Plan: Continue D5W IVF's, serial Na+ monitoring - Plan continue antibiotics, manager social work, respiratory therapy, DVT proph w/SCDs Consults: Palliative Care Continue supportive mgmt Mech ventilation with pulmonology following Family discussing likely palliative measures Code Status: DNAR Continue IVF's Continue Cefepime AM lab: ABG PCXR in am
[2020-02-02] MEDS: Famotidine/PF 20 mg/2ml Vial SLOW IVP SCH (21:15)
[2020-02-02] MEDS: Cholecalciferol 1,000 UNITS (25 MCG) TAB PO SCH (21:20)
--- NOTE | 2020-02-02 21:50 | PRG ---
DATE OF SERVICE: 02/02/2020 Son was contacted by the nursing staff jasmine. The son apparently has medical power of deputy county attorney in his reverse a code status. His sister told me that they do not get along a lot of things, but she thought that they would get along on these decisions about their mother. I asked the nurse to relay to him that he needs to come up here, produce his power of deputy county attorney documents and produce living will. Most living will state of situations hopeless, care should be withdrawn. In my opinion, this is a hopeless situation. She has advanced dementia, has been bedridden over a year, has decubitus ulcers, has a very small pneumonia about the size of a baseball that led to respiratory failure. I feel that this is futile care and terminal care. I have asked the nurse to explain to the son that it is imperative that he come look at his mother on the ventilator. His sister told me today that she did not think he would come up here. It is imperative that he presented himself to the intensive care unit to discuss the above with the caregivers. If he will not, then the ethics committee and Palliative Care needs to be involved. I can see how she might survive for several days or even several weeks after extubation, but she is at the end of her life in my opinion, this will be relayed to family if they appear in my hospital, so I can discuss this with him directly. Job ID: [id number]
[2020-02-02] MEDS: Propofol 1,000 MG/100 ML VIAL IV PRN (21:56)
--- NOTE | 2020-02-02 22:28 | PRG ---
DATE OF SERVICE: SUBJECTIVE: The patient still on life support, noted with the following vital signs. OBJECTIVE: VITAL SIGNS: Blood pressure 106/59, pulse of 56, and O2 saturation of 100%. HEENT: Unremarkable. CARDIOVASCULAR: First and second heart sounds were heard. RESPIRATORY: Revealed vented sounds. DIGESTIVE SYSTEM: Revealed a benign abdomen. Positive bowel sounds. EXTREMITIES: No peripheral edema. SKIN: No new gross rash. LYMPHATICS: No peripheral lymphadenopathy. LABORATORY INVESTIGATION: Showed hemoglobin of 8.6. Chemistry showed a sodium of 146, potassium 5.5, chloride 114, BUN of 71 with a creatinine of 2.11. IMPRESSION: 1. Acute on chronic kidney disease. 2. hyperkalemia with hypernatremia. 3. Metabolic acidosis, resolved. PLAN: 1. Continue current free water repletion. 2. Continue to monitor the potassium level. 3. Renally dose all medications. 4. No indication for renal replacement therapy. 5. Further management will be dependent on the clinical course. Job ID: [id number]
[2020-02-03] MEDS: D5 1/4 NS 1,000 ML IV SCH ×3 (04:08→22:50)
[2020-02-03] MEDS: fentaNYL Citrate/PF 2,000 MCG in Sodium Chloride 0.9% 60 ML IV SCH (05:55)
--- NOTE | 2020-02-03 08:13 | PRG ---
DATE OF SERVICE: 02/03/2020 35 minutes of critical care time. SUBJECTIVE: The patient remains intubated on mechanical ventilation. She will awaken. She nods to some questions, but does not follow commands for me specifically otherwise. OBJECTIVE: VITAL SIGNS: Her temperature is 97.5, pulse 58, blood pressure 98/63, O2 saturation 100%. 24-hour intake 4347, output 1560. HEENT: Unremarkable. NECK: No adenopathy or JVD. CHEST: Clear to auscultation. CARDIAC: S1 and S2. Slightly bradycardic. ABDOMEN: Soft and nontender. EXTREMITIES: Severe muscle wasting. LABORATORY DATA: Chemistry was not done today. White blood cell count was not done today. Blood gas was not done today. ASSESSMENT: 1. Right lower lobe pneumonia versus mucus [id number] has almost totally cleared up. 2. Acute hypoxic respiratory failure. 3. Chronic debilitation. 4. Hypernatremia and acute renal failure at the time of admission. PLAN: 1. Lighten sedation, hopefully proceed towards extubation soon. 2. Noted family issues yesterday with code status. 3. Will follow. Job ID: [id number]
--- NOTE | 2020-02-03 08:45 | RAD ---
PORTABLE SUPINE CHEST: HISTORY: Pneumonia. CCU followup. COMPARISON: 02/02/2020. FINDINGS: ET tube and NG tube remain in position. Lungs are well aerated. The right lower lung opacities note d previously show improvement on the current study. Left lung appears clear and unchanged. IMPRESSION: Improving right lower lung infiltrates. POS: OFF
[2020-02-03] MEDS: Enoxaparin Sodium 30 MG/0.3 ML SYRINGE SC SCH (09:42)
--- NOTE | 2020-02-03 11:02 | PDOC.GSPN ---
Surgery Progress Note: Subj - Subjective Narrative: Patient stable decubitus has demarcated. It does appear that it is full- thickness over the entire area of the initial decubitus ulcer. We are treating this with Marti for chemical debridement. Given her poor prognosis and lack of infection no surgical debridement is indicated at this time. I will see her intermittently with wound care. Comfort care would be most appropriate. Surgery Progress Note: Obj - Vital signs Vital signs: Vital Signs - Most Recent Temp Pulse Resp BP Pulse Ox 98.3 F 58 L 12 99/53 L 100 02/03/20 07:49 02/03/20 07:58 02/03/20 08:00 02/03/20 07:58 02/03/20 07:53 Surgery Progress Note: Results - Labs Result Diagrams: 02/01/20 03:55 02/01/20 03:55 Lab results: Laboratory Results - last 12 hr 02/01/20 02/03/20 10:22 04:07 POC Glucose 265 H 209 H
[2020-02-03] MEDS: Cefepime 1 GM in Sodium Chloride 0.9% 100 ML IVPB SCH ×2 (11:47→22:50)
--- NOTE | 2020-02-03 13:12 | PQF ---
CLINICAL DOCUMENTATION CLARIFICATION FORM: Dear Dr. ANTOINETTE MCCLURE Date: 02-03-20 Please exercise your independent, professional judgment in responding to the clarification form. Clinical indicators are provided on the bottom of this form for your review. Diagnosis: SEPSIS Present on Admission (POA): [ x ] Yes [ ] No [ ] Unable to determine For continuity of documentation, please document condition throughout progress notes and discharge summary. Thank You. To be completed by CDI/Coding staff for physician review: CLINICAL INDICATORS - SIGNS / SYMPTOMS / LABS/ RESULTS AND LOCATION IN MR: H&P 02-01-20: ACUTE RESPIRATORY FAILURE WITH HYPOXIA, ACUTE KIDNEY INJURY, POSSIBLE COVID, RIGHT LUNG PNEUMONIA, LIKELY ASPIRATION WITH HX OF MULTIPLE CVA AND DYSPHAGIA PROGRESS NOTE DR. MCCLURE 02-02-20: ACUTE SEPSIS, ACUTE RESPIRATORY FAILURE WITH HYPOXIA, ACUTE PNEUMONIA, DECUBITUS ULCER OF SACRAL REGION, ACUTE RENAL FAILURE, HYPERNATREMIA WBC: 01-31-20: 16.8 02-01-20: 11.5 BANDS: 02-01-20: 15% LACTIC ACID: 01-31-20: 2.9 01-31-20: 2.5 RISK FACTORS / RESULTS AND LOCATION IN MR: H&P 02-01-20: ACUTE RESPIRATORY FAILURE WITH HYPOXIA, ACUTE KIDNEY INJURY, POSSIBLE COVID, RIGHT LUNG PNEUMONIA, LIKELY ASPIRATION WITH HX OF MULTIPLE CVA AND DYSPHAGIA PROGRESS NOTE DR. MCCLURE 02-02-20: ACUTE SEPSIS, ACUTE RESPIRATORY FAILURE WITH HYPOXIA, ACUTE PNEUMONIA, DECUBITUS ULCER OF SACRAL REGION, ACUTE RENAL FAILURE, HYPERNATREMIA TREATMENT / RESULTS AND LOCATION IN MR: MAR: 01-31-20: CEFEPIME IV, D5 IVF, VANCOMYCIN IV CDS Signature: Kateryna Sanders Phone #: [phone] Date: 02-03-20 This is a permanent part of the Medical Record [facility]
--- NOTE | 2020-02-03 15:29 | PDOC.FMACP ---
Advance Care Planning - Problem (1) Acute respiratory failure with hypoxia Status: Acute Code(s): J96.01 - ACUTE RESPIRATORY FAILURE WITH HYPOXIA (2) Decubitus ulcer of sacral region, unstageable Status: Chronic Code(s): L89.150 - PRESSURE ULCER OF SACRAL REGION, UNSTAGEABLE (3) Palliative care encounter Status: Acute Code(s): Z51.5 - ENCOUNTER FOR PALLIATIVE CARE (4) Acute renal failure Status: Acute (5) Muscular wasting and disuse atrophy Status: Acute Code(s): M62.50 - MUSCLE WASTING AND ATROPHY, NEC, UNSP SITE (6) Dementia Status: Chronic Code(s): F03.90 - UNSPECIFIED DEMENTIA WITHOUT BEHAVIORAL DISTURBANCE (7) Diabetes mellitus type 2 Status: Chronic Code(s): E11.9 - TYPE 2 DIABETES MELLITUS WITHOUT COMPLICATIONS - Note Participants: surrogate decision-maker, palliative care Summary: Palliative Care revisited Advanced Care Planning with patient LAURA Sorenson/patient son. The diagnosis, prognosis and goals of care were discussed. Appropriate forms and documentation to accomplish the goals of care were discussed. All questions were answered. Discussed DNAR status. Further conversation in relation to what he states his mothers wishes are. He states she told him she wanted to be a "full code" however he also states that she would not desire a feeding tube or be on machines. We discussed that she currently is and revisited DNAR. Extensive listening. Tavon states he is coming today 02/03/2020 to see his mother. Discussed that she may be suffering and that he may need to further think about the implication of "no machines and no feeding tube". Requested that the Directive to Physician be provided to hospital, confirmed we have document for medical power of harpoon engagement planning operator. Also attempted to call patient daughter at her request, no answer and voice mailbox full. Will follow up to revisit Goal of care and resuscitation status. Time Spent (mins): 45
[2020-02-03] MEDS: Propofol 1,000 MG/100 ML VIAL IV PRN (17:05)
--- NOTE | 2020-02-03 18:30 | PDOC.HOSPP ---
- Subjective Encounter Date: 02/03/20 Encounter Time: 18:25 Subjective: f/u for sepsis/PNA/resp failure with mech ventilation receiving Cefepime/Diprivan/IVF's. More awake per daughter but still weak. Family trying decide on next steps regarding full treatment vs palliative measures. - Objective Vital Signs & Weight: Vital Signs (12 hours) Temp Pulse Resp BP Pulse Ox 02/03/20 18:00 16 02/03/20 16:00 99.0 F 12 02/03/20 14:24 72 97/56 L 02/03/20 14:00 12 02/03/20 12:00 98.5 F 12 02/03/20 11:21 76 100/59 L 02/03/20 10:00 12 02/03/20 08:00 12 02/03/20 07:58 58 L 99/53 L 02/03/20 07:53 100 02/03/20 07:49 98.3 F Weight Admit Weight 127 lb Weight 127 lb 3.307 oz Most Recent Monitor Data Heart Rate from ECG 75 NIBP 94/49 NIBP BP-Mean 64 Respiration from ECG 14 SpO2 94 I&O: 02/02/20 02/03/20 02/04/20 06:59 06:59 06:59 Intake Total 3571.2 4347.3 1575.5 Output Total 300 1560 1485 Balance 3271.2 2787.3 90.5 Result Diagrams: 02/01/20 03:55 02/01/20 03:55 Additional Labs: Accuchecks 02/03/20 02/03/20 02/03/20 16:52 13:05 04:07 POC Glucose 108 H 125 H 209 H 02/02/20 02/01/20 21:14 10:22 POC Glucose 255 H 265 H Microbiology 02/02/20 05:25 Sputum Respiratory Culture - Preliminary Yeast species 02/02/20 05:25 Sputum Respiratory Culture - Preliminary 01/31/20 10:08 Venous blood - Right Hand Blood Culture - Preliminary NO GROWTH AT 48 HOURS 01/31/20 10:08 Venous blood - Left Hand Blood Culture - Preliminary NO GROWTH AT 48 HOURS Laboratory Tests 01/31/20 01/31/20 02/01/20 10:08 11:15 03:55 WBC 16.8 H Hgb 11.7 L Plt Count 448 H Neutrophils % 85.9 H Neutrophils % (Manual) 80 H Band Neuts % (Manual) 15 H Vancomycin Trough SARS-CoV-2 Rap RNA(RT-PCR) Not Detected 02/01/20 02/02/20 10:58 13:07 WBC Hgb Plt Count Neutrophils % Neutrophils % (Manual) Band Neuts % (Manual) Vancomycin Trough 11.4 17.5 SARS-CoV-2 Rap RNA(RT-PCR) Radiology Reviewed by me: Yes (PCXR - improved RLL infiltrates, lines/tubes in place) EKG Reviewed by me: Yes (Tele - SR) Hospitalist ROS - Medication Medications: Active Medications Generic Name Dose Route Start Last Admin Trade Name Freq PRN Reason Stop Dose Admin Albuterol/Ipratropium 3 ml 02/03/20 13:00 02/03/20 14:24 Ipratropium/Albuterol Sulfate 3 Ml Neb NEB 3 ml [id number] YARELIS Administration Cholecalciferol 5,000 units 01/31/20 21:00 02/02/20 21:20 Cholecalciferol 1,000 Units (25 Mcg) Tab PO 5,000 units HS YARELIS Administration Enoxaparin Sodium 30 mg 02/03/20 09:00 02/03/20 09:42 Enoxaparin Sodium 30 Mg/0.3 Ml Syringe SC 30 mg 0900 YARELIS Administration Famotidine 20 mg 02/02/20 21:00 02/02/20 21:15 Famotidine/Pf 20 Mg/2ml Vial SLOW IVP 20 mg QPM YARELIS Administration Cefepime HCl 1 gm/ Sodium 100 mls @ 200 mls/hr 01/31/20 23:00 02/03/20 11:47 Chloride IVPB 100 mls 1100,2300 YARELIS Administration Dextrose/Sodium Chloride 1,000 mls @ 125 mls/hr 02/02/20 11:15 02/03/20 15:18 D5 1/4 Ns IV 1,000 mls INF YARELIS Administration Insulin Human Lispro 0 units 01/31/20 10:59 02/02/20 21:15 Humalog 300 Units/3 Ml Vial SC 6 unit .MODERATE SLIDING SC PRN Administration Moderate Correctional Scale Insulin Human Lispro 0 units 01/31/20 10:59 02/03/20 04:08 Humalog 300 Units/3 Ml Vial SC 2 units .BEDTIME SLIDING SC PRN Administration Bedtime Correctional Scale Propofol 1,000 mg 01/31/20 16:45 02/03/20 17:05 Propofol 1,000 Mg/100 Ml Vial IV 03/01/20 16:45 1,000 mg INF PRN Administration TO ACHIEVE GOAL RASS Protocol Sodium Chloride 10 ml 02/01/20 09:00 02/03/20 09:43 Flush - Normal Saline 10 Ml Syringe IVF 10 ml Q12HR YARELIS Administration - Exam General - other findings: opens eyes, blinks spontaneously, biting on ETT Eye: PERRL, anicteric sclera ENT: normocephalic atraumatic, no oropharyngeal lesions ENT - other findings: ETT in place Neck: supple, symmetric, no JVD, no thyromegaly, no lymphadenopathy Heart: RRR, no gallops, no rubs, normal peripheral pulses Heart - other findings: S1, S2 Respiratory: no tachypnea Respiratory - other findings: diminished in bases, few scattered rhonchi Gastrointestinal: soft, non-tender, non-distended, normal bowel sounds, no palpable masses Extremities: no cyanosis, no clubbing, no edema Skin: normal turgor, no lesions Neurological - other findings: sedate on mech ventilation, opens eyes/blinks spontaneously Musculoskeletal: generalized weakness Psychiatric: somnolent, lethargic Hosp A/P (1) Sepsis Code(s): A41.9 - SEPSIS, UNSPECIFIED ORGANISM Status: Acute Plan: Suspected secondary to PNA, continue Cefepime/IVF's (2) Acute respiratory failure with hypoxia Code(s): J96.01 - ACUTE RESPIRATORY FAILURE WITH HYPOXIA Status: Acute Plan: Continue mech ventilation, few spontaneous resp noted, serial PCXR (3) Pneumonia Code(s): J18.9 - PNEUMONIA, UNSPECIFIED ORGANISM Status: Acute Plan: Suspected Gm+ cocci, continue Cefepime (4) Decubitus ulcer of sacral region, unstageable Code(s): L89.150 - PRESSURE ULCER OF SACRAL REGION, UNSTAGEABLE Status: Chronic Plan: No surgical intervention recommended currently, supportive, local care, turning protocol, Present on Admit (5) Acute renal failure Status: Acute Plan: Improving, continue IVF's, avoid nephrotoxic meds and limit contrast exposure (6) Type 2 diabetes mellitus Status: Chronic Qualifiers: Diabetes mellitus complication detail: with chronic kidney disease Chronic kidney disease stage: stage 3 (moderate) (7) Hypernatremia Code(s): E87.0 - HYPEROSMOLALITY AND HYPERNATREMIA Status: Acute Plan: Continue IV D5 1/4 NS, serial Na+ monitoring - Plan plan discussed w/ family, continue antibiotics, social media coordinator, respiratory therapy, DVT proph w/SCDs Consults: Palliative Care Continue supportive mgmt Mech ventilation with pulmonology following Family discussing comprehensive treatment vs palliative measures Code Status: Full Continue IVF's Continue Cefepime AM lab: ABG, BMP, CBC PCXR in am
--- NOTE | 2020-02-03 18:51 | PRG ---
DATE OF SERVICE: 02/03/2020 OBJECTIVE: VITAL SIGNS: The patient is noted with the following vital signs; afebrile, respiratory rate of 16, heart rate of 75, blood pressure 94/49. HEENT: Unremarkable. CARDIOVASCULAR SYSTEM: First and second heart sounds were heard. RESPIRATORY SYSTEM: Clear to auscultation. DIGESTIVE SYSTEM: Revealed a benign abdomen. EXTREMITIES: No peripheral edema. SKIN: No new gross rash. LYMPHATICS: No peripheral lymphadenopathy. LABORATORY INVESTIGATION: Showed a hemoglobin of 8.6, creatinine of 2.11, BUN of 71, and potassium of 5.5, with sodium of 146. IMPRESSION: 1. Mild hypernatremia, more or less improving. 2. Hyperkalemia. 3. Acute on chronic kidney disease. 4. Cardiopulmonary failure. PLAN: 1. Continue current free water repletion. 2. Monitor the electrolytes closely. 3. Further management to be dependent on the clinical course. Job ID: [id number]
[2020-02-03] MEDS: Famotidine/PF 20 mg/2ml Vial SLOW IVP SCH (20:41)
[2020-02-03] MEDS: Cholecalciferol 1,000 UNITS (25 MCG) TAB PO SCH (20:42)
[2020-02-04 04:25] LABS: Anion Gap 14 mmol/L (10-20); BUN (Urea Nitrogen) 50 mg/dL (9.8-20.1); Calc. Creatinine Clearance 31 mL/min (70-130); Calcium 7.6 mg/dL (7.8-10.44); Carbon Dioxide 20 mmol/L (23-31); Chloride 107 mmol/L (98-107); Estimated GFR-MDRD 33; Glucose 100 mg/dL (80-115); Potassium 3.3 mmol/L (3.5-5.1); Sodium 138 mmol/L (136-145)
[2020-02-04 04:28] LABS: Band 9 % (5-11); Hemoglobin 8.9 g/dL (12.0-16.0); Hypochromia SLIGHT = 6-15 cells (100X) (0-5/hpf); MDiff Complete? YES; Mean Corpuscular HGB CONC 33.2 g/dL (32.0-36.0); Mean Corpuscular Hemoglobin 32.8 pg (27.0-31.0); Mean Platelet Volume 7.7 fL (7.4-10.4); Monocytes 9 % (0-10); Neutrophil 82 % (42-75); Platelet Count 240 thou/uL (130-400); Platelet Morphology Comment Appears Adequate; RBC Distribution Width 11.9 % (11.5-14.5); Red Blood Cell (RBC) Count 2.71 mill/uL (4.20-5.40); White Blood Cell (WBC) Count 12.6 thou/uL (4.8-10.8)
[2020-02-04 05:10] VITALS: BMI 21.4
[2020-02-04] MEDS: D5 1/4 NS 1,000 ML IV SCH (06:21)
[2020-02-04] MEDS ORDERED: Electrolyte Replacement Protoc 1 EACH EACH FS ONE (07:31)
[2020-02-04] MEDS ORDERED: Electrolyte Replacement Protocol FS PRN (07:45)
[2020-02-04] MEDS: Enoxaparin Sodium 30 MG/0.3 ML SYRINGE SC SCH (07:50)
--- NOTE | 2020-02-04 07:57 | PRG ---
DATE OF SERVICE: 02/04/2020 Thirty five minutes critical care time. SUBJECTIVE: The patient remains intubated on mechanical ventilation. She is awake, but she is very weak and does not follow commands very well. PHYSICAL EXAMINATION: VITAL SIGNS: Her temperature is 100.4 and that was her maximum temperature. Pulse 93, blood pressure 95/58, O2 saturation 95%. A 24-hour intake 1891, output 3715. HEENT: Unremarkable. NECK: No JVD. LUNGS: Coarse breath sounds. CARDIOVASCULAR: S1 and S2, regular. ABDOMEN: Soft and nontender. EXTREMITIES: Severe muscle wasting. LABORATORY DATA: Sodium 138, potassium 3.3, chloride 107, CO2 of 20, BUN 50, creatinine 1.5, and glucose 100. White blood cell count 12.6, hematocrit 26.9, and platelet count 240. ABG pending. Chest x-ray shows a right middle lobe infiltrate. ASSESSMENT: 1. Right lower lobe/right middle lobe pneumonia. 2. Acute hypoxic respiratory failure requiring mechanical ventilation. 3. Chronic debilitation. 4. Hypernatremia, which has now been corrected. 5. Acute renal failure, which has improved. PLAN: The main issue here is going to be the patient's severe neuromuscular weakness. I have placed her on pressure support ventilation this morning, but I am having to use significantly high pressure support in order to maintain adequate tidal volume. I will try to wean this slowly, but I am not confident I will be able to accomplish any significant weaning because of her severe weakness. Palliative Care is speaking with the family. She was originally DNR, but that has been reversed to a full code status. Job ID: [id number]
--- NOTE | 2020-02-04 08:45 | RAD ---
PORTABLE CHEST: INDICATION: Pneumonia followup. COMPARISON: 02/03/2020. FINDINGS: Overlying artifact obscures the right lung base. Right lower lobe infiltrate is poorly evaluated. L eft lung appears clear. ET tube and NG tube remain in place. IMPRESSION: Probably not significantly changed. The right lower lung is poorly evaluated due to overlying artifa ct. POS: AGW
[2020-02-04 09:06] LABS: Actual Bicarbonate (HCO3a) 20.3 mEq/L (22-28); Base Excess (BEa) -3.9 mEq/L (-2.0 to +3.0); CO2 Tension 33.1 mmHg (35.0-45.0); Calcium, Ionized (arterial) 1.15 mmol/L (1.12-1.30); Carboxyhemoglobin (COHb) 0.7 gm% (0.0-3.0); Hemoglobin (Hb) 7.8 g/dL (12.0-16.0); O2 Tension (PaO2), arterial 88.1 mmHg (> 80.0); Potassium - ABG Lab 3.28 mmol/L (3.70-5.30); pH, Arterial 7.41 (7.35-7.45)
[2020-02-04 09:19] LABS: Puncture Site RBA
[2020-02-04 09:20] LABS: ALV-art Gradient 298.325 mmHg (0-20)
[2020-02-04] MEDS ORDERED: Potassium Chloride 40 MEQ in Sodium Chloride 0.9% 250 ML 250 ML IVPB SCH (09:45)
[2020-02-04] MEDS: Cefepime 1 GM in Sodium Chloride 0.9% 100 ML IVPB SCH ×2 (10:51→22:46)
--- NOTE | 2020-02-04 14:25 | PDOC.PALCO ---
Palliative Care Consult - Consult Details Requesting Physician: Dr Joshua/Hospitalist Reason for Consult: advance directives assistance, assistance with communication prognosis/disease, complex decision-making Family Members Present: MPOA/Son Tavon Sorenson via phone - Pertinent HPI Ms Sorenson is a resident at a assisted facility secondary to declining functional status and need for assistance with ADL's. Wheel manjit chair/bed bound oriented x1 at baseline. She was having increasing shortness of breath and was transferred to [facility] for evaluation and management. O2 saturation was found to be 63% and she was intubated. Admitted for higher level of care. Noted to have significant sacral wound as noted in wound photo. Known dysphagia with decrease in intake. - Pertinent PMH DM II, HTN, CKD, Dementia, TIA/CVA, Atrial fib - Social History Smoking Status: Never smoker Smoking: no tobacco exposure Alcohol Use: none Drug Use History: none Living Situation: assisted resident - Medications MAR Reviewed: Yes - Allergies Allergies/Adverse Reactions: Allergies Allergy/AdvReac Type Severity Reaction Status Date / Time lisinopril Allergy Severe Short of Verified 05/13/19 00:07 Breath naproxen [From Naprosyn] Allergy Severe Anaphylaxis Verified 05/13/19 00:07 tramadol Allergy Unknown Verified 11/29/19 16:05 - Subjective Intermittent restlessness, Intubated, makes eye contact but unable to determine orientation. Reported at baseline oriented to self. - ROS Non Response: due to endotracheal tube, due to mental status - Objective Vital Signs: Vital Signs - Most Recent Temp Pulse Resp BP Pulse Ox 99.8 F H 84 14 96/56 L 92 L 02/04/20 12:00 02/04/20 13:18 02/04/20 14:00 02/04/20 13:18 02/04/20 08:00 Palliative Performance Scale: 20 - Advance Directives Medical Power of Responder: Tavon Sorenson - Physical Exam Constitutional: encephalitic, ill appearing HEENT: EOMI, moist MMs, sclera anicteric Respiratory: no wheezing, diminished lung sound Deviation from normal: Intubated, mechanical ventilation Cardiovascular: no significant murmur Gastrointestinal: soft, non-tender Genitourinary: freitas catheter Musculoskeletal: diffuse muscle atrophy Skin: fragile Deviation from normal: Wound as per wound photo Deviation from normal: Unable to fully address orientation - Problem List (1) Acute respiratory failure with hypoxia Code(s): J96.01 - ACUTE RESPIRATORY FAILURE WITH HYPOXIA Current Visit: Yes Status: Acute (2) Decubitus ulcer of sacral region, unstageable Code(s): L89.150 - PRESSURE ULCER OF SACRAL REGION, UNSTAGEABLE Current Visit: Yes Status: Chronic (3) Palliative care encounter Code(s): Z51.5 - ENCOUNTER FOR PALLIATIVE CARE Current Visit: Yes Status: Acute (4) Acute renal failure Current Visit: Yes Status: Acute (5) Muscular wasting and disuse atrophy Code(s): M62.50 - MUSCLE WASTING AND ATROPHY, NEC, UNSP SITE Current Visit: No Status: Acute (6) Dementia Code(s): F03.90 - UNSPECIFIED DEMENTIA WITHOUT BEHAVIORAL DISTURBANCE Current Visit: No Status: Chronic (7) Diabetes mellitus type 2 Code(s): E11.9 - TYPE 2 DIABETES MELLITUS WITHOUT COMPLICATIONS Current Visit: No Status: Chronic - Plan/Recommendations Plan: Lengthy conversation with patient son/LAURA Sorenson. He elected to transition to DNAR. Document completed and placed in chart. Discussed his mothers wishes, she had previously relayed that she did not desire to be "kept on machines" Further revisited her declining functional status prior to admission to hospital. Discussed disease trajectory related to dementia paired with multiple morbidities. He is considering withdraw of mechanical ventilation and transition to comfort measures the afternoon of 02/05/2020. Awaiting for him to discuss with his sister. Discussed what compassionate extubation with comfort measures entails and consideration of addition of hospice if they elect to compassionately extubate and transition care. Attempted to contact Nohemi patient daughter/will attempt to contact her again to further discuss 02/04/2020 Emotional Support and Therapeutic listening. Communicated with Dr Rea [70] minutes spent on this encounter with >50% of the time in counseling and coordination of care. Thank you for this very appropriate consult.
--- NOTE | 2020-02-04 16:57 | PRG ---
DATE OF SERVICE: 02/04/2020 OBJECTIVE: VITAL SIGNS: The patient noted with the following vital signs. Afebrile, temperature 98.6, pulse 100, blood pressure 105/57. HEENT: Unremarkable. CARDIOVASCULAR SYSTEM: First and second heart sounds were heard. RESPIRATORY SYSTEM: Clear to auscultation. DIGESTIVE SYSTEM: Revealed a benign abdomen. EXTREMITIES: No peripheral edema. SKIN: No new gross rash. LABORATORY INVESTIGATION: Showed potassium of 3.3, BUN of 50, bicarb of 20, sodium 138, creatinine 1.5. IMPRESSION: 1. Hldwr-va-wnqgots kidney disease, seems to be improving. 2. Metabolic acidosis, much improved. 3. Hyperkalemia, resolved. 4. The patient has hypernatremia seems resolved also. PLAN: 1. We will likely change the IV fluid to a different electrolyte content. 2. Continue further renal supportive measures. Job ID: [id number]
--- NOTE | 2020-02-04 16:58 | PDOC.PALFU ---
Palliative Care Follow-up Note Spoke with patient son Taovn. He confirmed that he and his sister desire to compassionately extubate their mother tomorrow at 2pm. He is uncertain of hospice for comfort measures post extubation, he requested we further discuss in the morning. Communicated with Dr Rea.
[2020-02-04 17:55] LABS: Potassium 4.1 mmol/L (3.5-5.1)
--- NOTE | 2020-02-04 18:13 | PDOC.HOSPP ---
- Subjective Encounter Date: 02/04/20 Encounter Time: 16:10 Subjective: f/u for Sepsis/Resp failure on mech vent/PNA receiving Cefepime. More alert per nursing and tracking with eyes and head. - Objective Vital Signs & Weight: Vital Signs (12 hours) Temp Pulse Resp BP Pulse Ox 02/04/20 18:00 12 02/04/20 16:00 98.6 F 12 02/04/20 14:44 101 H 02/04/20 14:00 14 02/04/20 13:18 84 96/56 L 02/04/20 12:00 99.8 F H 12 02/04/20 10:12 87 92/48 L 02/04/20 10:00 15 02/04/20 09:00 99.7 F H 02/04/20 08:00 101.9 F H 91 20 92 L 02/04/20 07:51 101.9 F H Weight Admit Weight 127 lb Weight 128 lb 11.999 oz Most Recent Monitor Data Heart Rate from ECG 86 NIBP 108/56 NIBP BP-Mean 73 Respiration from ECG 16 SpO2 97 I&O: 02/03/20 02/04/20 02/05/20 06:59 06:59 06:59 Intake Total 4347.3 1891.5 975 Output Total 1560 3715 1120 Balance 2787.3 -1823.5 -145 Result Diagrams: 02/04/20 03:30 02/04/20 17:34 Additional Labs: Accuchecks 02/04/20 02/04/20 02/04/20 16:01 10:06 04:49 POC Glucose 91 106 H 101 H 02/03/20 19:45 POC Glucose 110 H Microbiology 02/02/20 05:25 Sputum Respiratory Culture - Final Presumptive [place] albicans 02/02/20 05:25 Sputum Respiratory Culture - Preliminary Yeast species 02/02/20 05:25 Sputum Respiratory Culture - Preliminary 01/31/20 10:08 Venous blood - Right Hand Blood Culture - Preliminary NO GROWTH AT 48 HOURS 01/31/20 10:08 Venous blood - Left Hand Blood Culture - Preliminary NO GROWTH AT 48 HOURS Laboratory Tests 01/31/20 01/31/20 01/31/20 10:08 10:08 11:15 WBC 16.8 H Hgb 11.7 L Plt Count 448 H Neutrophils % 85.9 H Neutrophils % (Manual) Band Neuts % (Manual) Potassium Creatinine 1.97 H Vancomycin Trough SARS-CoV-2 Rap RNA(RT-PCR) Not Detected 02/01/20 02/01/20 02/01/20 03:55 03:55 10:58 WBC 11.5 H Hgb 8.6 L Plt Count Neutrophils % Neutrophils % (Manual) 80 H Band Neuts % (Manual) 15 H Potassium Creatinine 2.11 H Vancomycin Trough 11.4 SARS-CoV-2 Rap RNA(RT-PCR) 02/02/20 02/04/20 02/04/20 13:07 03:30 03:30 WBC Hgb Plt Count Neutrophils % Neutrophils % (Manual) 82 H Band Neuts % (Manual) 9 Potassium 3.3 L Creatinine Vancomycin Trough 17.5 SARS-CoV-2 Rap RNA(RT-PCR) Radiology Reviewed by me: Yes (PCXR - RLL infiltrate obscured by artifact, lines/tubes in place) EKG Reviewed by me: Yes (Tele - SR) Hospitalist ROS - Medication Medications: Active Medications Generic Name Dose Route Start Last Admin Trade Name Freq PRN Reason Stop Dose Admin Acetaminophen 650 mg 01/31/20 10:59 02/04/20 07:51 Acetaminophen 325 Mg Tab PO 650 mg Q4H PRN Administration Headache/Fever/Mild Pain (1-3) Albuterol/Ipratropium 3 ml 02/03/20 13:00 02/04/20 13:17 Ipratropium/Albuterol Sulfate 3 Ml Neb NEB 3 ml [id number] YARELIS Administration Cholecalciferol 5,000 units 01/31/20 21:00 02/03/20 20:42 Cholecalciferol 1,000 Units (25 Mcg) Tab PO 5,000 units HS YARELIS Administration Enoxaparin Sodium 30 mg 02/03/20 09:00 02/04/20 07:50 Enoxaparin Sodium 30 Mg/0.3 Ml Syringe SC 30 mg 0900 YARELIS Administration Famotidine 20 mg 02/02/20 21:00 02/03/20 20:41 Famotidine/Pf 20 Mg/2ml Vial SLOW IVP 20 mg QPM YARELIS Administration Cefepime HCl 1 gm/ Sodium 100 mls @ 200 mls/hr 01/31/20 23:00 02/04/20 10:51 Chloride IVPB 100 mls 1100,2300 YARELIS Administration Dextrose/Sodium Chloride 1,000 mls @ 125 mls/hr 02/02/20 11:15 02/04/20 06:21 D5 1/4 Ns IV 1,000 mls INF YARELIS Administration Insulin Human Lispro 0 units 01/31/20 10:59 02/02/20 21:15 Humalog 300 Units/3 Ml Vial SC 6 unit .MODERATE SLIDING SC PRN Administration Moderate Correctional Scale Insulin Human Lispro 0 units 01/31/20 10:59 02/03/20 04:08 Humalog 300 Units/3 Ml Vial SC 2 units .BEDTIME SLIDING SC PRN Administration Bedtime Correctional Scale Propofol 1,000 mg 01/31/20 16:45 02/03/20 17:05 Propofol 1,000 Mg/100 Ml Vial IV 03/01/20 16:45 1,000 mg INF PRN Administration TO ACHIEVE GOAL RASS Protocol Sodium Chloride 10 ml 02/01/20 09:00 02/04/20 09:59 Flush - Normal Saline 10 Ml Syringe IVF 10 ml Q12HR YARELIS Administration - Exam General Appearance: awake alert General - other findings: turns head/tracks with eyes, raises L arm/hand Eye: PERRL, anicteric sclera ENT: normocephalic atraumatic, no oropharyngeal lesions ENT - other findings: ETT in place, biting on tube Neck: supple, symmetric, no JVD, no thyromegaly, no lymphadenopathy Heart: RRR, no gallops, no rubs, normal peripheral pulses Heart - other findings: S1, S2 Respiratory: tachypneic Respiratory - other findings: diminished bilat, coarse sounds bilat base Gastrointestinal: soft, non-tender, non-distended, normal bowel sounds, no palpable masses Extremities: no cyanosis, no clubbing, no edema Musculoskeletal: generalized weakness, diffuse muscle atrophy Psychiatric: oriented to person, lethargic Hosp A/P (1) Sepsis Code(s): A41.9 - SEPSIS, UNSPECIFIED ORGANISM Status: Acute Plan: Suspected pulmonary source, continue Cefepime/mech ventilation, pulmonary support (2) Acute respiratory failure with hypoxia Code(s): J96.01 - ACUTE RESPIRATORY FAILURE WITH HYPOXIA Status: Acute Plan: Continue mech ventilation, more alert currently and potential for weaning (3) Pneumonia Code(s): J18.9 - PNEUMONIA, UNSPECIFIED ORGANISM Status: Acute Plan: RML/LL involvement, suspected gm + cocci, continue Cefepime (4) Decubitus ulcer of sacral region, unstageable Code(s): L89.150 - PRESSURE ULCER OF SACRAL REGION, UNSTAGEABLE Status: Chronic Plan: Conservative mgmt, local care, turning protocol (5) Acute renal failure Status: Acute Plan: Improved, continue IVF's and free-H2O, avoid nephrotoxic meds and limit contrast exposure (6) Type 2 diabetes mellitus Status: Chronic Qualifiers: Diabetes mellitus complication detail: with chronic kidney disease Chronic kidney disease stage: stage 3 (moderate) (7) Hypernatremia Code(s): E87.0 - HYPEROSMOLALITY AND HYPERNATREMIA Status: Acute Plan: Improved, continue D5 1/4NS IVF's - Plan continue antibiotics, mental health social worker, respiratory therapy, DVT proph w/SCDs Consults: Palliative Care Continue supportive mgmt Mech ventilation with pulmonology following, ? potential wean Family discussing comprehensive treatment vs palliative measures Code Status: DNAR per family request Continue IVF's Continue Cefepime AM lab: ABG, BMP, CBC PCXR in am
[2020-02-04] MEDS: Propofol 1,000 MG/100 ML VIAL IV PRN (18:21)
[2020-02-04] MEDS: Famotidine/PF 20 mg/2ml Vial SLOW IVP SCH (19:19)
[2020-02-04] MEDS: Dextrose 5 % And 0.9 % NaCl 1,000 ML IV SCH (19:19)
[2020-02-04] MEDS: Cholecalciferol 1,000 UNITS (25 MCG) TAB PO SCH (19:20)
[2020-02-05 03:50] LABS: Anion Gap 15 mmol/L (10-20); BUN (Urea Nitrogen) 45 mg/dL (9.8-20.1); Calc. Creatinine Clearance 38 mL/min (70-130); Calcium 7.6 mg/dL (7.8-10.44); Carbon Dioxide 17 mmol/L (23-31); Chloride 110 mmol/L (98-107); Estimated GFR-MDRD 40; Glucose 131 mg/dL (80-115); Potassium 3.9 mmol/L (3.5-5.1); Sodium 138 mmol/L (136-145)
[2020-02-05 04:15] LABS: Band 2 % (5-11); Eosinophils 2 % (0-10); Lymphocytes 7 % (21-51); MDiff Complete? YES; Mean Corpuscular HGB CONC 34.2 g/dL (32.0-36.0); Mean Corpuscular Volume 99.2 fL (78.0-98.0); Mean Platelet Volume 7.2 fL (7.4-10.4); Monocytes 1 % (0-10); Neutrophil 88 % (42-75); Platelet Count 166 thou/uL (130-400); Platelet Morphology Comment Appears Adequate; Red Blood Cell (RBC) Count 2.66 mill/uL (4.20-5.40); White Blood Cell (WBC) Count 14.8 thou/uL (4.8-10.8)
[2020-02-05] MEDS: Dextrose 5 % And 0.9 % NaCl 1,000 ML IV SCH ×2 (06:23→08:15)
[2020-02-05 07:15] LABS: Actual Bicarbonate (HCO3a) 20.9 mEq/L (22-28); Base Excess (BEa) -2.9 mEq/L (-2.0 to +3.0); CO2 Tension 31.7 mmHg (35.0-45.0); Calcium, Ionized (arterial) 1.17 mmol/L (1.12-1.30); Carboxyhemoglobin (COHb) 0.2 gm% (0.0-3.0); Hemoglobin (Hb) 7.6 g/dL (12.0-16.0); O2 Tension (PaO2), arterial 99.8 mmHg (> 80.0); Potassium - ABG Lab 3.53 mmol/L (3.70-5.30); pH, Arterial 7.44 (7.35-7.45)
[2020-02-05 07:20] LABS: ALV-art Gradient 145.775 mmHg (0-20); Puncture Site RRA
--- NOTE | 2020-02-05 08:07 | PRG ---
DATE OF SERVICE: 02/05/2020 35 minutes critical care time. SUBJECTIVE: The patient remains in the CCU on mechanical ventilation. She will awake and follow some commands . OBJECTIVE: VITAL SIGNS: Temperature 100.2 with a T-max of 101.9, pulse 103, blood pressure 128/59. 24-hour intake 2458, output 2405. Weight 128 pounds. HEENT: Unremarkable except for the tubes in place. NECK: No adenopathy or JVD. LUNGS: Coarse breath sounds bilaterally. CARDIOVASCULAR: S1 and S2. Regular. ABDOMEN: Soft and nontender to palpation. EXTREMITIES: Generalized edema throughout. NEUROLOGIC: She does breathe spontaneously. 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 LABORATORY DATA: White blood cell count 14.8, hemoglobin 9, hematocrit 26.3, and platelet count 166. pH 7.44, pCO2 of 31, pO2 of 99 on SIMV rate 12, tidal volume 450, PEEP 5, pressure support 14, FiO2 40%. Sodium 138, potassium 3.9, chloride 110, CO2 of 17, BUN 45, creatinine 1.3, glucose 131. Chest x-ray shows bilateral infiltrative changes actually looks a little worse compared to previous films. ASSESSMENT: 1. Acute hypoxic respiratory failure, requiring mechanical ventilation. 2. Originally right lower lobe/right middle lobe pneumonia, now with bilateral infiltrative changes. 3. Chronic debilitation. 4. Resolved hypernatremia. 5. Improving acute renal failure. PLAN: Palliative care has a note that indicates that the patient's family may be going forward with a compassionate extubation later this afternoon. I am actually try the patient on spontaneous breathing trial right now and she may do okay extubated at least in the short term. However, I think the patient's severe neuromuscular weakness will eventually catch up to her and I think that she is likely to pass away within several days of extubation. I have reviewed her orders. I do not see anything to change up until the time she is extubated. We will continue with CPAP trial this morning and see how she does. Hopefully, that will make the transition to extubation a little easier on her. Job ID: [id number]
[2020-02-05] MEDS: Enoxaparin Sodium 30 MG/0.3 ML SYRINGE SC SCH (08:14)
--- NOTE | 2020-02-05 08:17 | RAD ---
PORTABLE CHEST: HISTORY: Pneumonia followup. CCU followup on ventilator. COMPARISON: 02/04/2020. FINDINGS/IMPRESSION: ET tube and NG tube unchanged. Interstitial and hazy alveolar infiltrates in both perihilar regions and extending into both lower lung rivero appear more prominent on the current study. POS: AGW
[2020-02-05 10:57] VITALS: BP 111/67
[2020-02-05] MEDS: Cefepime 1 GM in Sodium Chloride 0.9% 100 ML IVPB SCH (11:31)
[2020-02-05 12:45] VITALS: TEMP 97.7
[2020-02-05] MEDS ORDERED: Morphine 4 MG/ML VIAL ONE (14:03)
--- NOTE | 2020-02-05 14:03 | PDOC.PALPN ---
Palliative Progress Note - Subjective Intubated with mechanical ventilation. Opens eyes, but no purposeful engagement. Daughter at bedside, waiting on patient son to arrive. [facility] hospice here to admit - Objective Vital Signs: Vital Signs - Most Recent Temp Pulse Resp BP Pulse Ox 97.7 F 112 H 12 111/67 95 02/05/20 12:00 02/05/20 10:55 02/05/20 06:00 02/05/20 10:55 02/05/20 04:00 - Physical Exam Constitutional: encephalitic, ill appearing HEENT: moist MMs, sclera anicteric Respiratory: diminished lung sound Deviation from normal: no spontaneous respirations, mechanical ventilation. Adventicious lung soun Cardiovascular: RRR Gastrointestinal: soft, non-tender Genitourinary: freitas catheter Musculoskeletal: edema present, diffuse muscle atrophy Skin: fragile, friable Deviation from normal: Wounds as per wound photo Deviation from normal: Unable to determine orientation - Assessment (1) Acute respiratory failure with hypoxia Code(s): J96.01 - ACUTE RESPIRATORY FAILURE WITH HYPOXIA Current Visit: Yes Status: Acute (2) Decubitus ulcer of sacral region, unstageable Code(s): L89.150 - PRESSURE ULCER OF SACRAL REGION, UNSTAGEABLE Current Visit: Yes Status: Chronic (3) Palliative care encounter Code(s): Z51.5 - ENCOUNTER FOR PALLIATIVE CARE Current Visit: Yes Status: Acute (4) Acute renal failure Current Visit: Yes Status: Acute (5) Muscular wasting and disuse atrophy Code(s): M62.50 - MUSCLE WASTING AND ATROPHY, NEC, UNSP SITE Current Visit: No Status: Acute (6) Dementia Code(s): F03.90 - UNSPECIFIED DEMENTIA WITHOUT BEHAVIORAL DISTURBANCE Current Visit: No Status: Chronic (7) Diabetes mellitus type 2 Code(s): E11.9 - TYPE 2 DIABETES MELLITUS WITHOUT COMPLICATIONS Current Visit: No Status: Chronic - Plan Plan: * Family elected to compassionately extubate * [facility] to assume care * Comfort meds ordered for compassionate extubation * Communicated with Dr Mayberry and Dr Rea * Emotional support offered to patient children oNhemi and Vickey [45] minutes spent on this encounter with >50% of the time in counseling and coordination of care. - ROS Non Response: due to endotracheal tube, due to mental status
[2020-02-05] MEDS ORDERED: Lorazepam 2 MG/ML VIAL SLOW IVP PRN (14:14)
[2020-02-05] MEDS ORDERED: Morphine 4 MG/ML VIAL SLOW IVP PRN (14:14)
[2020-02-05] MEDS ORDERED: Scopolamine 1.5 mg/72 hour Patch TOP SCH (14:15)
--- NOTE | 2020-02-06 01:08 | DIS ---
DATE OF ADMISSION: 01/31/2020 DATE OF DISCHARGE: 02/05/2020 DISCHARGE DIAGNOSES: 1. Sepsis secondary to pneumonia, suspected gram-positive cocci. 2. Acute hypoxic respiratory failure. 3. Decubitus ulcer of sacral region, unstageable. 4. Acute kidney injury on chronic kidney disease. 5. Diabetes mellitus type 2. 6. Hypernatremia. 7. Severe deconditioning. CONSULTATIONS: 1. Dr. Douglas Mayberry and Dr. Sin with Pulmonology Critical Care Service. 2. Dr. Newman with Nephrology Service. 3. Palliative Care Service. 4. Dr. Hercules with General Surgery Service. PERTINENT LABORATORY AND X-RAY FINDINGS: Sodium ranged between 138 to 152. Potassium ranged between 3.9 to 5.6. Creatinine ranged between 1.32 to 2.11. Estimated GFR ranged between 25 to 40. Lactic acid level ranged between 2.5 to 2.9. CBC showed a white blood cell count ranging between 11.5 to 16.8, hemoglobin ranged between 8.6 to 11.7. COVID-19 PCR not detected on 01/31/2020. Blood cultures x2 dated 01/31/2020, showed no growth at 5 days. Respiratory culture dated 02/02/2020, showed presumptive Suyapa albicans. Portable chest x-ray dated 01/31/2020 showed right lower lobe infiltrate. Portable chest x-ray dated 02/02/2020, showed endotracheal and nasogastric tube in appropriate positions. Right lung opacities noted. Portable chest x-ray dated 02/03/2020, showed right lower lung infiltrates improved. Portable chest x-ray dated 02/05/2020 showed increasing bilateral infiltrates. HOSPITAL COURSE: The patient was initially admitted after presenting with acute hypoxic respiratory failure and concern for COVID-19 pneumonia. The patient was transferred to [facility] from [facility], where the patient is a current resident with O2 saturations in the 70% range. The patient with altered mentation and initially placed on a non-rebreather. However, was intubated and placed on mechanical ventilation. Initial COVID-19 PCR was negative and patient received broad-spectrum IV antibiotic therapy after meeting sepsis criteria. The patient continued on mechanical ventilation, was followed by the Pulmonology/Critical Care Team. The patient with a large unstageable sacral decubitus ulcer, evaluated by General Surgery without specific recommendations for surgical intervention. This ulcer was present on admission as noted in the medical record. The patient received IV fluids due to hypernatremia and acute kidney injury and metabolically had improvement on lab values. The patient was more alert with hydration and antibiotic therapy and was titrated from mechanical ventilation to a continuous positive airway pressure ventilation with spontaneous respirations on the ventilator. Due to the patient's multiple comorbid conditions, severe neuromuscular weakness, deconditioning, and bed-bound status, discussions were had with the family regarding potential comfort/palliative measures. The family decided to pursue do not attempt resuscitation status and to transition to comfort care. The patient was terminally extubated on 02/05/2020 and will transition to an inpatient hospice care. FOLLOWUP: [facility]. CODE STATUS: Do not attempt resuscitation. DISPOSITION: Inpatient hospice with [facility] on 02/05/2020. Job ID: [id number]
== END 2020-02-05 14:21 | disposition hospice, inpatient (51) | DRG 870 ==
LOC: ERS 09:22 → CCU 10:59
PROVIDERS: ADMIT Internal Medicine; ATTEND Internal Medicine
PROC: 5A1955Z Respiratory Ventilation, Greater than 96 Consecutive Hours (ICD-10-PCS; principal; 2020-01-31)
PROC: 0BH17EZ Insertion of Endotracheal Airway into Trachea, Via Natural or Artificial Opening (ICD-10-PCS; 2020-01-31)
DX: A41.89 Other specified sepsis (principal); J18.9 Pneumonia, unspecified organism; J96.01 Acute respiratory failure with hypoxia; I48.20 Chronic atrial fibrillation, unspecified; N17.9 Acute kidney failure, unspecified; E87.0 Hyperosmolality and hypernatremia; E87.2 Acidosis; Z66 Do not resuscitate; Z51.5 Encounter for palliative care; Z20.828 Contact with and (suspected) exposure to other viral communicable diseases; E11.22 Type 2 diabetes mellitus with diabetic chronic kidney disease; F41.9 Anxiety disorder, unspecified; F32.9 Major depressive disorder, single episode, unspecified; I12.9 Hypertensive chronic kidney disease with stage 1 through stage 4 chronic kidney disease, or unspecified chronic kidney disease; I25.10 Atherosclerotic heart disease of native coronary artery without angina pectoris; R53.81 Other malaise; E87.8 Other disorders of electrolyte and fluid balance, not elsewhere classified; E86.0 Dehydration; D64.9 Anemia, unspecified; E87.5 Hyperkalemia; M62.50 Muscle wasting and atrophy, not elsewhere classified, unspecified site; L89.150 Pressure ulcer of sacral region, unstageable; N18.30 Chronic kidney disease, stage 3 unspecified; F03.90 Unspecified dementia, unspecified severity, without behavioral disturbance, psychotic disturbance, mood disturbance, and anxiety; Z86.73 Personal history of transient ischemic attack (TIA), and cerebral infarction without residual deficits; Z74.01 Bed confinement status; Z90.49 Acquired absence of other specified parts of digestive tract; Z95.5 Presence of coronary angioplasty implant and graft; Z88.8 Allergy status to other drugs, medicaments and biological substances
CPT/HCPCS: 31500; 36415; 36416; 36556; 36600; 51702; 71045; 80048; 80053; 80202; 81003; 82550; 82805; 83605; 83690; 85025; 85610; 85730; 87040; 87070; 87205; 93005; 94002; 94003; 94640; 96365; 96366; 96367; 96368; 96375; 96376; 99292; J0692; J1650; J1956; J2060; J2270; J2704; J2920; J3010; J3370; J3480; J3490; J7042; J7050; J7070; J7620; S0028; U0002

== ENCOUNTER 2020-02-05 14:31 | Inpatient (IN) | payer OTHER ==
[2020-02-05] MEDS ORDERED: Morphine 4 MG/ML VIAL SLOW IVP PRN (14:48)
[2020-02-05] MEDS: Morphine 4 MG/ML VIAL SLOW IVP PRN (21:38)
[2020-02-05] MEDS: Scopolamine 1.5 mg/72 hour Patch TOP SCH (22:28)
[2020-02-06] MEDS: Lorazepam 2 MG/ML VIAL SLOW IVP PRN (08:19)
[2020-02-06] MEDS: Morphine 4 MG/ML VIAL SLOW IVP PRN ×2 (08:28→12:40)
[2020-02-06] MEDS ORDERED: FLU VACC QS2020-21(65YR UP)/PF 240 MCG/0.7 ML SYRINGE IM ONE (14:45)
[2020-02-07] MEDS: Lorazepam 2 MG/ML VIAL SLOW IVP PRN ×3 (09:17→18:11)
[2020-02-07] MEDS: Morphine 4 MG/ML VIAL SLOW IVP PRN ×3 (09:17→18:10)
[2020-02-08] MEDS ORDERED: Morphine 4 MG/ML VIAL SLOW IVP PRN (08:53)
[2020-02-08] MEDS ORDERED: Lorazepam 2 MG/ML VIAL SLOW IVP PRN (08:53)
[2020-02-08] MEDS ORDERED: Scopolamine 1.5 mg/72 hour Patch TOP SCH (09:00)
[2020-02-08] MEDS: diphenhydrAMINE 50 MG/ML VIAL IVP PRN ×2 (09:15→15:40)
[2020-02-08] MEDS: Morphine 4 MG/ML VIAL SLOW IVP SCH ×4 (10:53→21:41)
[2020-02-08] MEDS: Lorazepam 2 MG/ML VIAL SLOW IVP SCH ×4 (10:53→21:41)
[2020-02-08] MEDS: Scopolamine 1.5 mg/72 hour Patch TOP SCH (19:45)
[2020-02-09] MEDS: Lorazepam 2 MG/ML VIAL SLOW IVP SCH ×6 (01:03→21:05)
[2020-02-09] MEDS: Morphine 4 MG/ML VIAL SLOW IVP SCH ×6 (01:04→21:04)
[2020-02-09 19:51] VITALS: BP 65/45; TEMP 98.8
== END 2020-02-10 00:15 | disposition expired | DRG 951 ==
LOC: CCU 14:31 → T4-B 15:47
PROVIDERS: ADMIT Internal Medicine; ATTEND Internal Medicine
DX: Z51.5 Encounter for palliative care (principal); J96.01 Acute respiratory failure with hypoxia; J18.9 Pneumonia, unspecified organism; I48.20 Chronic atrial fibrillation, unspecified; N17.9 Acute kidney failure, unspecified; Z66 Do not resuscitate; E11.22 Type 2 diabetes mellitus with diabetic chronic kidney disease; I12.9 Hypertensive chronic kidney disease with stage 1 through stage 4 chronic kidney disease, or unspecified chronic kidney disease; R13.10 Dysphagia, unspecified; N18.30 Chronic kidney disease, stage 3 unspecified; F03.90 Unspecified dementia, unspecified severity, without behavioral disturbance, psychotic disturbance, mood disturbance, and anxiety; Z88.8 Allergy status to other drugs, medicaments and biological substances; Z86.73 Personal history of transient ischemic attack (TIA), and cerebral infarction without residual deficits; Z74.01 Bed confinement status; Z90.49 Acquired absence of other specified parts of digestive tract; Z95.5 Presence of coronary angioplasty implant and graft
CPT/HCPCS: J1200; J2060; J2270